=== PATIENT | male | born 1955 | race Caucasian/White ===

== ENCOUNTER 2016-05-22 15:29 | Emergency (ER) | payer MEDICARE, OTHER ==
[~2016-05-22] VITALS: Ht 182.9 cm; Wt 75.0 kg
[~2016-05-22 15:29] MED LIST: ASPI81TA82 PO; DOCU1CAP39 PO; LEVE500 PO; MIRTA15 PO; SERT100 PO; SERT50 PO
[2016-05-22 15:32] VITALS: BP 142/70; PULSE 86; RESP 16; TEMP 97.9
[2016-05-22] MEDS ORDERED: KEPP750T PO (15:37)
[2016-05-22] MEDS ORDERED: MIRTA15 PO (15:37)
[2016-05-22] MEDS ORDERED: ASPI81CH CHEW (15:37)
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
[2016-05-22] MEDS ORDERED: ACETAMINOPHEN/HYDROcodone 325 MG/5 MG TAB PO ONE (15:45)
[2016-05-22] MEDS ORDERED: CYCLOBENZAPRINE HCL 10 MG TAB PO ONE (15:45)
--- NOTE | 2016-05-22 16:29 | RADRPT ---
EXAM DATE/TIME: 05/22/2016 16:01 [facility] COMPARISON: No previous studies available for comparison. INDICATIONS : Pain after fall several days ago. RADIATION DOSE: 35.86 CTDIvol (mGy) MEDICAL HISTORY : Seizures. Deep venous thrombosis. SURGICAL HISTORY : None. ENCOUNTER: Initial ACUITY: 1 day PAIN SCALE: 7/10 LOCATION: lumbar. TECHNIQUE: Volumetric scanning of the lumbar spine was performed. Multiplanar reconstructions in the sagittal, coronal and oblique axial planes were performed. Using automated exposure control and adjustment of the mA and/or kV according to patient size, radiation dose was kept as low as reasonably achievable t o obtain optimal diagnostic quality images. FINDINGS: The soft tissues demonstrate a inferior vena cava filter in place. Bony structures are normally aligned without subluxation. As acute co mpression deformity superior vertebral endplate of L1 with impaction and increased density sub-cortic ally and discontinuity of the cortex particularly posterior laterally to the right with no evidence o f retropulsion of fragments or spinal stenosis. Additionally appreciated is an abnormal sacrum S1-2 w ith a lytic change and cortical erosion. CONCLUSION: Acute compression superior vertebral endplate of L1 without retropulsion of fragments and no evidence of spinal stenosis. Cystic abnormality lytic of the sacrum S1-2 with cortical erosions Jaspreet Fields MD on May 22, 2016 at 16:25 Board Certified Radiologist. This report was verified electronically.
[2016-05-22] MEDS ORDERED: NORC5TAB PO (17:03)
[2016-05-22 18:27] VITALS: BP 138/74; PULSE 88; RESP 20; O2SAT 97
== END 2016-05-22 18:57 | disposition home or self-care (01) ==
LOC: NEPE 15:29
DX: S32.018A Other fracture of first lumbar vertebra, initial encounter for closed fracture (principal); M53.3 Sacrococcygeal disorders, not elsewhere classified; Z86.718 Personal history of other venous thrombosis and embolism; Z86.69 Personal history of other diseases of the nervous system and sense organs; W10.9XXA Fall (on) (from) unspecified stairs and steps, initial encounter
CPT/HCPCS: 72131; 99284; L0484

== ENCOUNTER 2017-01-03 15:04 | Inpatient (IN) | payer MEDICARE, OTHER ==
[~2017-01-03] VITALS: Ht 182.9 cm; Wt 75.0 kg
[~2017-01-03 15:04] MED LIST changes: +ASPI81CH CHEW; -ASPI81TA82 PO; -DOCU1CAP39 PO; +KEPP750T PO; -LEVE500 PO; +NORC5TAB PO; -SERT100 PO; -SERT50 PO
[2017-01-03 15:58] VITALS: BP 149/77; PULSE 68; RESP 19; TEMP 97.7; O2SAT 99
[2017-01-03 16:06] VITALS: BP 149/77; PULSE 68; RESP 19; TEMP 97.7; O2SAT 98
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
[2017-01-03 17:03] LABS: AUTOMATED NEUTROPHIL # 3.4 TH/MM3 (1.8-7.7); BASOPHIL % 0.8 % (0.0-2.0); EOSINOPHIL # 0.3 TH/MM3 (0-0.4); EOSINOPHIL % 4.4 % (0.0-4.0); HEMATOCRIT 40.2 % (39.0-51.0); HEMO FLAGS DIFF FINAL; LYMPHOCYTE # 1.7 TH/MM3 (1.0-4.8); MEAN CELL VOLUME 95.7 FL (80.0-100.0); MEAN CORPUSCULAR HEMOGLOBIN 31.3 PG (27.0-34.0); MEAN CORPUSCULAR HGB CONC 32.7 % (32.0-36.0); MONO % 7.5 % (0.0-8.0); NEUT % 58.3 % (16.0-70.0); PLATELET COUNT 231 TH/MM3 (150-450); RED CELL DISTRIBUTION WIDTH 15.4 % (11.6-17.2); WHITE BLOOD COUNT 5.9 TH/MM3 (4.0-11.0)
[2017-01-03 17:08] LABS: APTT (PATIENT) 25.8 SEC (24.3-30.1); PROTHROMBIN TIME - PATIENT 10.5 SEC (9.8-11.6)
[2017-01-03 17:27] LABS: ANION GAP 8 MEQ/L (5-15); AST (GOT) 29 U/L (15-37); BICARBONATE 26.1 MEQ/L (21.0-32.0); BLOOD UREA NITROGEN 13 MG/DL (7-18); CHLORIDE 106 MEQ/L (98-107); GLOMERULAR FILTRATION RATE 97 ML/MIN (>89); POTASSIUM 3.9 MEQ/L (3.5-5.1); SODIUM (NA) 140 MEQ/L (136-145)
[2017-01-03 17:28] LABS: ALCOHOL LESS THAN 3 MG/DL (0-5)
[2017-01-03 17:30] LABS: ALKALINE PHOSPHATASE 125 U/L (45-117); ALT (GPT) 20 U/L (12-78); TOTAL BILIRUBIN ADULT 0.4 MG/DL (0.2-1.0)
[2017-01-03] MEDS ORDERED: FOSA70TA PO (20:37)
[2017-01-03] MEDS ORDERED: SERT-129 PO (20:37)
[2017-01-03] MEDS ORDERED: SIMV20TA PO (20:37)
[2017-01-03] MEDS ORDERED: LAMO25TA PO (20:37)
[2017-01-03] MEDS ORDERED: levETIRAcetam 250 MG TAB PO ONE (20:45)
[2017-01-04 02:12] VITALS: BP 106/61; PULSE 52; RESP 19; O2SAT 94
[2017-01-04 06:00] VITALS: RESP 18
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
[2017-01-04] MEDS ORDERED: ALUMINUM/MAGNESIUM/SIMETH 30 ML CUP PO PRN (13:45)
[2017-01-04] MEDS ORDERED: ACETAMINOPHEN 325 MG TAB PO PRN (13:45)
[2017-01-04] MEDS ORDERED: MAGNESIUM HYDROXIDE SUSP 30 ML CUP PO PRN (13:45)
[2017-01-04] MEDS ORDERED: ALENDRONATE SODIUM 70 MG TAB PO SCH (14:15)
[2017-01-04] MEDS: levETIRAcetam 250 MG TAB PO SCH (20:47)
[2017-01-05 08:28] LABS: ANION GAP 8 MEQ/L (5-15); BICARBONATE 25.9 MEQ/L (21.0-32.0); BLOOD UREA NITROGEN 10 MG/DL (7-18); CHLORIDE 108 MEQ/L (98-107); GLOMERULAR FILTRATION RATE 95 ML/MIN (>89); POTASSIUM 3.6 MEQ/L (3.5-5.1); SODIUM (NA) 142 MEQ/L (136-145)
[2017-01-05 08:30] LABS: HDL CHOLESTEROL 38.7 MG/DL (40.0-60.0); LDL CHOLESTEROL 68 MG/DL (0-99)
[2017-01-05] MEDS: levETIRAcetam 250 MG TAB PO SCH ×2 (09:00→21:39)
[2017-01-05] MEDS: PRAVASTATIN SOD 40 MG TAB PO SCH (09:00)
[2017-01-05] MEDS: ASPIRIN 81 MG CHEW TAB CHEW SCH (09:00)
[2017-01-05] MEDS: lamoTRIgine 25 MG TAB PO SCH (09:00)
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
[2017-01-05 10:45] LABS: HEMOGLOBIN A1a 0.8 %; HEMOGLOBIN A1b 0.8 %; HEMOGLOBIN Ao 87.5 %; HEMOGLOBIN F 0.8 %; HEMOGLOBIN LA1C 1.9 %; HEMOGLOBIN P3 3.2 %
[2017-01-05] MEDS ORDERED: HALOPERIDOL LACTATE 5 MG/ML AMP IM PRN (12:00)
[2017-01-05] MEDS ORDERED: HALOPERIDOL 2 MG TAB PO PRN (12:00)
[2017-01-05] MEDS ORDERED: diphenhydrAMINE HCL 50 MG CAP PO PRN (12:00)
[2017-01-05] MEDS ORDERED: BENZTROPINE MESYLATE 2 MG/2 ML VIAL IM PRN (12:00)
[2017-01-05] MEDS ORDERED: LORazepam 1 MG TAB PO PRN (12:00)
[2017-01-05] MEDS ORDERED: LORazepam 2 MG/ML VIAL IM PRN (12:00)
[2017-01-05] MEDS ORDERED: BENZTROPINE MESYLATE 1 MG TAB PO PRN (12:00)
--- NOTE | 2017-01-05 20:26 | MG ---
cc: DIEGO KLEIN MD Lab No: Date: 01/05/17 Age: 61 Sex: M Race: DATE OF 1955 MEDICAL HISTORY History of seizures, head trauma, confusion, numbness, mood disorder, depression, anxiety, violent behavior, caffeine, tobacco abuse, DVT, bipolar. MEDICATIONS Keppra. DESCRIPTION The background activity is 8-9 Hz alpha posteriorly located bilateral and symmetrical. During the recording there is excessive eye movement artifact possibly eye flutter. Hyperventilation did not make a change in the EEG. Photic stimulation did not elicit a driving response. There were no electrographic seizures or epileptiform discharges noted. INTERPRETATION This is a normal awake EEG. The EEG recording is contaminated by excess eye movement artifact. There is no ictal activity or abnormal epileptiform discharges. Clinical correlation is recommended. Diego Klein MD RGO/EO /4:09 PM /8:18 PM MTDIlda
[2017-01-05] MEDS ORDERED: SERTRALINE HCL 100 MG TAB PO SCH (21:00)
[2017-01-05] MEDS ORDERED: MIRTAZAPINE 15 MG TAB PO SCH (21:00)
[2017-01-05] MEDS ORDERED: QUEtiapine FUMARATE 25 MG TAB PO SCH (21:00)
[2017-01-06 05:43] VITALS: BP 147/67; PULSE 64; RESP 18; TEMP 98.2; O2SAT 99
--- NOTE | 2017-01-06 08:38 | EKG ---
Date Performed: 01/05/2017 Time Performed: 13:27:18 PTAGE: 61 years EKG: SINUS BRADYCARDIA BORDERLINE ECG PREVIOUS TRACING : 11/24/2012 20.24 No significant change from previous tracing noted. DOCTOR: Mohsen Pulido Interpretating Date/Time 01/06/2017 08:36:52
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
[2017-01-06] MEDS: lamoTRIgine 25 MG TAB PO SCH (09:00)
[2017-01-06] MEDS: PRAVASTATIN SOD 40 MG TAB PO SCH (09:00)
[2017-01-06] MEDS: ASPIRIN 81 MG CHEW TAB CHEW SCH (09:00)
[2017-01-06] MEDS: levETIRAcetam 250 MG TAB PO SCH ×2 (09:00→20:43)
--- NOTE | 2017-01-06 10:09 | HHI.PYPN ---
Subjective Remarks Patient seen and examined with counselor and nurse. Chart reviewed. Case discussed with nursing staff who reports that the patient is quite concrete and obstreperous. He is only agreeing to take 500mg of his Keppra at a time. He also refused Lamictal today. Psych meds are on hold for lack of consent. On my exam, patient is irascible and hostile. He tells me that I am "obliged to shut the fuck up." When I ask about HI, he says, "yeah, you [i.e. this scientific writer]. " He declines to speak about AVH. He concludes the interview by saying, "bye bye you fucking cornhole." No physical complaints. Review of Systems ROS Limitations: Psychotic, Poor Historian Except as stated in HPI: all other systems reviewed are Neg Objective Alert: Yes [place]: Person Mood: Angry, Oppositional Affect: Other (irritable) Memory Intact: Comment (Not formally assessed.) Hallucinations: Auditory (Appears internally stimulated.) Delusions: Yes Delusion Type: Paranoid Suicidal: Ideation (No SI) Homicidal: Ideation (See above) Insight/Judgment Poor Remarks No motor abnormalities noted. Thought process quite concrete. Grooming and hygiene fair. No visible rash. Labs Labs reviewed. EEG read as normal. Vitals/IOs Vital Signs Date Time Temp Pulse Resp B/P (MAP) Pulse Ox O2 Delivery O2 Flow Rate FiO2 01/06/17 05:43 98.2 64 18 147/67 (93) 99 01/04/17 02:12 Room Air Assessment & Plan Problem List: (1) Bipolar affective, mixed, sev w/ psych ICD Codes: F31.64 - Bipolar disorder, current episode mixed, severe, with psychotic features (2) History of traumatic brain injury ICD Codes: Z87.820 - Personal history of traumatic brain injury Assessment & Plan I have asked counselor to reach out to mother to see if she will be willing to serve as HCS. Patient remains quite irritable and would likely benefit from the Seroquel. We will start this as soon as consent is obtained from HCS. Lamictal may not be a great choice if compliance continues to be spotty given risk of SJS; will follow adherence going forward. Continue to monitor on the high acuity unit. Continue other medications and care as ordered. Justification for Cont. Inpt. Impairment in social functioning. High risk for decompensation in less restrictive environment. Discharge Planning Pending stabilization. Request HC Surrog/Guard Advoc?: Yes Karl Winston MD Jan 06, 2017 10:09
[2017-01-06] MEDS ORDERED: diphenhydrAMINE HCL 50 MG/ML VIAL IM STA (16:46)
[2017-01-06] MEDS ORDERED: HALOPERIDOL LACTATE 5 MG/ML AMP IM STA (16:46)
[2017-01-06] MEDS ORDERED: LORazepam 2 MG/ML VIAL IM STA (16:46)
[2017-01-07] MEDS: ALENDRONATE SODIUM 70 MG TAB PO SCH (06:00)
[2017-01-07] MEDS: levETIRAcetam 250 MG TAB PO SCH ×2 (09:40→20:24)
[2017-01-07] MEDS: ASPIRIN 81 MG CHEW TAB CHEW SCH (09:45)
[2017-01-07] MEDS: PRAVASTATIN SOD 40 MG TAB PO SCH (09:46)
[2017-01-07] MEDS: lamoTRIgine 25 MG TAB PO SCH (09:46)
--- NOTE | 2017-01-07 12:46 | HHI.PYPN ---
Subjective Remarks Patient seen and examined with nurse. Chart reviewed. Patient did grow agitated yesterday afternoon and required Haldol, Ativan and Benadryl ETO. Case discussed with nursing staff. Psych meds still on hold for lack of HCS for consent. He did take his full dose of Keppra today per RN. On my exam, patient remains challenging and overtly verbally hostile. He is not physically aggressive. When I try to engage him in interview he is dismissive. He says that I am "a mannikin. They used to call people dummies, but you're a mannikin. " No physical complaints. Review of Systems ROS Limitations: Uncooperative, Poor Historian Except as stated in HPI: all other systems reviewed are Neg Objective Alert: Yes [place]: Person Mood: Angry (remains hostile, angry), Oppositional Affect: Other (irritable) Memory Intact: Comment (Not formally assessed.) Hallucinations: Auditory (Remains int stim) Delusions: Yes Delusion Type: Paranoid Suicidal: Ideation (No SI) Homicidal: Ideation (No HI) Insight/Judgment Poor Remarks No motor abnormalities noted. Grooming and hygiene fair. Labs Labs reviewed. Vitals/IOs Vital Signs Date Time Temp Pulse Resp B/P (MAP) Pulse Ox O2 Delivery O2 Flow Rate FiO2 01/06/17 05:43 98.2 64 18 147/67 (93) 99 01/04/17 02:12 Room Air Assessment & Plan Problem List: (1) Bipolar affective, mixed, sev w/ psych ICD Codes: F31.64 - Bipolar disorder, current episode mixed, severe, with psychotic features (2) History of traumatic brain injury ICD Codes: Z87.820 - Personal history of traumatic brain injury Assessment & Plan Psych meds on hold for lack of consent. D/w counselor, and at present no one is available to act as HCS. Continue to monitor on high acuity unit. Continue other medications and care as ordered. Justification for Cont. Inpt. Impairment in social function. Impairment in reality construction. High risk for decompensation in less restrictive environment. Discharge Planning Pending stabilization. We may need to await appointment of a guardian advocate by [place] to allow us to medicate the patient for his symptoms. Request HC Surrog/Guard Advoc?: Yes Karl Winston MD Jan 07, 2017 12:46
[2017-01-07] MEDS ORDERED: diphenhydrAMINE HCL 50 MG/ML VIAL IM STA (17:14)
[2017-01-07] MEDS ORDERED: HALOPERIDOL LACTATE 5 MG/ML AMP IM STA (17:14)
[2017-01-07] MEDS ORDERED: LORazepam 2 MG/ML VIAL IM STA (17:14)
[2017-01-08] MEDS: ASPIRIN 81 MG CHEW TAB CHEW SCH ×2 (09:00→09:06)
[2017-01-08] MEDS: lamoTRIgine 25 MG TAB PO SCH ×2 (09:00→09:06)
[2017-01-08] MEDS: PRAVASTATIN SOD 40 MG TAB PO SCH ×2 (09:00→09:06)
[2017-01-08] MEDS: levETIRAcetam 250 MG TAB PO SCH ×2 (09:06→21:00)
--- NOTE | 2017-01-08 12:28 | HHI.PYPN ---
Subjective Remarks Pt seen and discussed with staff. He has been only selectively compliant with medications and refused most of them today.He has been agitated and making racial slurs and threats to "beat ass". He is disorganized and refuses interview because "I got things to do". Objective Alert: Yes [place]: Person Mood: Angry (hostile), Oppositional Affect: Other (irritable) Memory Intact: Comment (Not formally assessed.) Hallucinations: Auditory (Remains int stim) Delusions: Yes Delusion Type: Paranoid Suicidal: Ideation (No SI) Homicidal: Ideation (No HI) Insight/Judgment poor Remarks some disorganized behaviors Vitals/IOs Vital Signs Date Time Temp Pulse Resp B/P (MAP) Pulse Ox O2 Delivery O2 Flow Rate FiO2 01/06/17 05:43 98.2 64 18 147/67 (93) 99 Assessment & Plan Problem List: (1) Bipolar affective, mixed, sev w/ psych ICD Codes: F31.64 - Bipolar disorder, current episode mixed, severe, with psychotic features (2) History of traumatic brain injury ICD Codes: Z87.820 - Personal history of traumatic brain injury Assessment & Plan Continue current tx plan. Estimated LOS: days Justification for Cont. Inpt. impairments in safeyt Request HC Surrog/Guard Advoc?: Yes Mahnaz Tran MD Jan 08, 2017 12:28
[2017-01-09 06:05] VITALS: BP 90/56; PULSE 64; RESP 19; TEMP 97.1; O2SAT 100
[2017-01-09] MEDS: PRAVASTATIN SOD 40 MG TAB PO SCH (08:53)
[2017-01-09] MEDS: levETIRAcetam 250 MG TAB PO SCH ×2 (08:53→20:33)
[2017-01-09] MEDS: ASPIRIN 81 MG CHEW TAB CHEW SCH (08:53)
[2017-01-09] MEDS: lamoTRIgine 25 MG TAB PO SCH (08:55)
--- NOTE | 2017-01-09 12:14 | HHI.PYPN ---
Subjective Remarks Pt seen and discussed with staff. He remains psychotic and disorganized. He is disruptive on unit and easily agitated. Staff have not been able to obtain a HCS. Pt is unable to provide family information for contact and is very suspicious when MD asks is there is anyone he would like to contact or to have involved in care. "Its none of their business." Objective Alert: Yes [place]: Person Mood: Angry (hostile), Oppositional Affect: Other (irritable) Memory Intact: Comment (Not formally assessed.) Hallucinations: Auditory (Remains int stim) Delusions: Yes Delusion Type: Paranoid Suicidal: Ideation (No SI) Homicidal: Ideation (No HI) Insight/Judgment poor Vitals/IOs Vital Signs Date Time Temp Pulse Resp B/P (MAP) Pulse Ox O2 Delivery O2 Flow Rate FiO2 01/09/17 06:05 97.1 64 19 90/56 (67) 100 Assessment & Plan Problem List: (1) Bipolar affective, mixed, sev w/ psych ICD Codes: F31.64 - Bipolar disorder, current episode mixed, severe, with psychotic features (2) History of traumatic brain injury ICD Codes: Z87.820 - Personal history of traumatic brain injury Assessment & Plan Continue hospitalization for safety. Continue to try and find HCS. Will need [place] appointment [place]. Estimated LOS: days Justification for Cont. Inpt. impairments in safety and reality testing Request HC Surrog/Guard Advoc?: Yes Mahnaz Tran MD Jan 09, 2017 12:14
[2017-01-09] MEDS ORDERED: diphenhydrAMINE HCL 50 MG/ML VIAL ONE (15:04)
[2017-01-09] MEDS ORDERED: ZIPRASIDONE MESYLATE 20 MG VIAL IM ONE ×2 (15:04→15:45)
[2017-01-09 15:11] VITALS: BP 117/80; PULSE 17; PULSE 71; RESP 17
[2017-01-09] MEDS ORDERED: diphenhydrAMINE HCL 50 MG/ML VIAL IM ONE (15:45)
[2017-01-10 08:00] VITALS: BP 104/50; PULSE 60; RESP 16; TEMP 98; O2SAT 97
[2017-01-10] MEDS: ASPIRIN 81 MG CHEW TAB CHEW SCH (09:00)
--- NOTE | 2017-01-10 09:20 | HHI.PYPN ---
Subjective Remarks Patient seen and examined with nurse. Chart reviewed. Case discussed with nursing staff. Psych meds still on hold for lack of consent. Less frankly irritable and hostile today. Remains oppositional and questioning however. Denies SI/HI. Denies AVH. Smiles briefly. No physical complaints. Review of Systems ROS Limitations: Poor Historian Except as stated in HPI: all other systems reviewed are Neg Objective Alert: Yes [place]: Person Mood: Angry (less angry today), Oppositional Affect: Other (remains a little irritable) Memory Intact: Comment (not formally assessed today) Hallucinations: Other (denies AVH) Delusions: Yes Delusion Type: Paranoid Suicidal: Ideation (No SI) Homicidal: Ideation (No HI) Insight/Judgment Poor Remarks No motor abnormalities noted. Labs Labs reviewed. Vitals/IOs Vital Signs Date Time Temp Pulse Resp B/P (MAP) Pulse Ox O2 Delivery O2 Flow Rate FiO2 01/09/17 15:11 71 17 117/80 (92) 01/09/17 06:05 97.1 100 Assessment & Plan Problem List: (1) Bipolar affective, mixed, sev w/ psych ICD Codes: F31.64 - Bipolar disorder, current episode mixed, severe, with psychotic features (2) History of traumatic brain injury ICD Codes: Z87.820 - Personal history of traumatic brain injury Assessment & Plan Awaiting consent for meds. Continue to monitor on high acuity unit. Continue other medications and care as ordered. Justification for Cont. Inpt. Impairment in social function. High risk for decompensation in less restrictive environment. Discharge Planning Pending stabilization. Awaiting appointment of a guardian advocate. Case discussed with counselor. Request HC Surrog/Guard Advoc?: Yes Karl Winston MD Jan 10, 2017 09:20
[2017-01-10] MEDS: PRAVASTATIN SOD 40 MG TAB PO SCH (09:23)
[2017-01-10] MEDS: lamoTRIgine 25 MG TAB PO SCH (09:23)
[2017-01-10] MEDS: levETIRAcetam 250 MG TAB PO SCH ×2 (09:23→20:53)
[2017-01-11] MEDS: ASPIRIN 81 MG CHEW TAB CHEW SCH (09:00)
[2017-01-11] MEDS: PRAVASTATIN SOD 40 MG TAB PO SCH (09:00)
--- NOTE | 2017-01-11 09:42 | HHI.PYPN ---
Subjective Remarks Patient seen and examined with nurse. Chart reviewed. Case discussed in treatment team. Patient refuses interview in room. Remains questioning, oppositional but not verbally aggressive. Paranoia present. No SI or HI voiced. Complains of right leg pain and claudication, says this is of several week's duration, but he is a poor historian. He reports a history of VTE. No other physical complaints. Review of Systems ROS Limitations: Psychotic, Poor Historian Except as stated in HPI: all other systems reviewed are Neg Objective Alert: Yes [place]: Person Mood: Oppositional Affect: Other (irritable) Memory Intact: Comment (not formally assessed today) Hallucinations: Other (none reported but appears a little internally preoccupied) Delusions: Yes Delusion Type: Paranoid Suicidal: Ideation (No SI) Homicidal: Ideation (No HI) Insight/Judgment Poor Remarks No motor abnormalities noted. Grooming and hygiene fair. Speech terse. No tenderness to palpation along the right calf. No palpable cord. Labs Labs reviewed. Vitals/IOs Vital Signs Date Time Temp Pulse Resp B/P (MAP) Pulse Ox O2 Delivery O2 Flow Rate FiO2 01/10/17 08:00 98.0 60 16 104/50 (15) 97 Assessment & Plan Problem List: (1) Bipolar affective, mixed, sev w/ psych ICD Codes: F31.64 - Bipolar disorder, current episode mixed, severe, with psychotic features (2) History of traumatic brain injury ICD Codes: Z87.820 - Personal history of traumatic brain injury Assessment & Plan Awaiting consent for psychotropic medications. Check RLE doppler. [Update: non -occlusive thrombus in femoral vein, hospitalist has started patient on Xarelto. ] Consult to hospitalist for c/o leg pain. Continue to monitor on high acuity unit. Continue other medications and care as ordered. Justification for Cont. Inpt. Complicating condition. Impairment in reality construction. High risk for decompensation in less restrictive environment. Discharge Planning Pending outcome of [place]. Request HC Surrog/Guard Advoc?: Yes Karl Winston MD Jan 11, 2017 09:42
[2017-01-11] MEDS: levETIRAcetam 250 MG TAB PO SCH ×2 (09:53→20:45)
[2017-01-11] MEDS: lamoTRIgine 25 MG TAB PO SCH (09:53)
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
[2017-01-11] MEDS: RIVAROXABAN 15 MG TAB PO SCH ×2 (13:45→20:46)
[2017-01-11 18:08] VITALS: BP 95/54; PULSE 59; RESP 18; TEMP 96.3; O2SAT 92
[2017-01-12 06:23] VITALS: BP 103/68; PULSE 56; RESP 18; TEMP 97.4; O2SAT 99
[2017-01-12] MEDS: RIVAROXABAN 15 MG TAB PO SCH ×2 (08:21→21:00)
[2017-01-12] MEDS: lamoTRIgine 25 MG TAB PO SCH (08:22)
[2017-01-12] MEDS: levETIRAcetam 250 MG TAB PO SCH ×2 (08:22→21:03)
[2017-01-12] MEDS: PRAVASTATIN SOD 40 MG TAB PO SCH ×2 (08:22→09:00)
[2017-01-12] MEDS: ASPIRIN 81 MG CHEW TAB CHEW SCH (08:25)
--- NOTE | 2017-01-12 10:57 | HHI.PYPN ---
Subjective Remarks Patient seen and examined with counselor and nurse. Chart reviewed. Case discussed with nursing staff who reports that the patient continues to refuse some medications such as aspirin and Pravachol but is generally more polite and cooperative. On my examination today, I find the patient somewhat calmer. He does tend to deflect and minimize his behavior outbursts, more common in the afternoon, that have required ETO's earlier this week. Does begin to escalate a bit towards the end of our conversation and grow more oppositional, but overall seems less quarrelsome than in previous days. No physical complaints. Review of Systems ROS Limitations: Poor Historian Except as stated in HPI: all other systems reviewed are Neg Objective Alert: Yes [place]: Person Mood: Oppositional (perhaps reduced somewhat) Affect: Other (irritable, perhaps a little less so today) Memory Intact: Comment (not formally assessed) Hallucinations: Other (no AVH) Delusions: Yes Delusion Type: Paranoid (less prominent) Suicidal: Ideation (No SI) Homicidal: Ideation (No HI) Insight/Judgment Poor Remarks No motor abnormalities noted. Labs Labs reviewed. Vitals/IOs Vital Signs Date Time Temp Pulse Resp B/P (MAP) Pulse Ox O2 Delivery O2 Flow Rate FiO2 01/12/17 06:23 97.4 56 18 103/68 (80) 99 Assessment & Plan Problem List: (1) Bipolar affective, mixed, sev w/ psych ICD Codes: F31.64 - Bipolar disorder, current episode mixed, severe, with psychotic features (2) History of traumatic brain injury ICD Codes: Z87.820 - Personal history of traumatic brain injury Assessment & Plan Awaiting consents for psychotropics. Hospitalist input appreciated regarding patient's DVT, and the patient continues on Xarelto. Continue to monitor on the inpatient unit. Continue other medications and care as ordered. Justification for Cont. Inpt. High risk for decompensation in less restrictive environment. Discharge Planning Pending outcome of [place] Request HC Surrog/Guard Advoc?: Yes Karl Winston MD Jan 12, 2017 10:57
[2017-01-13] MEDS: levETIRAcetam 250 MG TAB PO SCH ×2 (08:09→20:41)
[2017-01-13] MEDS: RIVAROXABAN 15 MG TAB PO SCH ×2 (08:09→20:41)
[2017-01-13] MEDS: PRAVASTATIN SOD 40 MG TAB PO SCH (08:09)
[2017-01-13] MEDS: lamoTRIgine 25 MG TAB PO SCH (08:09)
[2017-01-13] MEDS: ASPIRIN 81 MG CHEW TAB CHEW SCH ×2 (08:09→08:12)
--- NOTE | 2017-01-13 10:51 | HHI.PYPN ---
Subjective Remarks Patient seen and case discussed with nursing staff. Chart reviewed. Per nursing staff, patient remains somewhat irritable. For me today, patient is once again calmer and less oppositional. He remains somewhat questioning and affect is generally dysphoric. When his case was presented to the [email or web address], he was noted to be somewhat dismissive of the coin machine service repairer and told the staff to "keep your hands off me" in an angry fashion. No physical complaints. Review of Systems ROS Limitations: Poor Historian Except as stated in HPI: all other systems reviewed are Neg Objective Alert: Yes [place]: Person Mood: Other (Dysphoric) Affect: Restricted Memory Intact: Comment (not formally assessed) Hallucinations: Other (no AVH) Delusions: Yes Delusion Type: Paranoid Suicidal: Ideation (No SI) Homicidal: Ideation (No HI) Insight/Judgment Poor Remarks No motoric abnormalities noted. Labs Labs reviewed. Vitals/IOs Vital Signs Date Time Temp Pulse Resp B/P (MAP) Pulse Ox O2 Delivery O2 Flow Rate FiO2 01/12/17 06:23 97.4 56 18 103/68 (80) 99 Assessment & Plan Problem List: (1) Bipolar affective, mixed, sev w/ psych ICD Codes: F31.64 - Bipolar disorder, current episode mixed, severe, with psychotic features (2) History of traumatic brain injury ICD Codes: Z87.820 - Personal history of traumatic brain injury Assessment & Plan Patient was retained on the unit by the [email or web address] [facility] and given a [place] guardian. D/c Seroquel which has not been given due to lack of consent and replace with Zyprexa Zydis 5mg PO qHS with IM backup. Continue other medications and care as ordered. Continue to monitor on the inpatient unit. Justification for Cont. Inpt. Medication change. High risk for decompensation in less restrictive environment. Discharge Planning Pending stabilization Request HC Surrog/Guard Advoc?: Yes Karl Winston MD Jan 13, 2017 10:51
[2017-01-13] MEDS ORDERED: OLANZapine IM 10 MG VIAL IM PRN (15:15)
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
[2017-01-13] MEDS ORDERED: OLANZapine ODT 5 MG TAB PO SCH (21:00)
[2017-01-14] MEDS: lamoTRIgine 25 MG TAB PO SCH (07:55)
[2017-01-14] MEDS: levETIRAcetam 250 MG TAB PO SCH ×2 (07:55→21:00)
[2017-01-14] MEDS: PRAVASTATIN SOD 40 MG TAB PO SCH (07:55)
[2017-01-14] MEDS: ALENDRONATE SODIUM 70 MG TAB PO SCH (07:55)
[2017-01-14] MEDS: RIVAROXABAN 15 MG TAB PO SCH ×2 (09:00→21:00)
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
[2017-01-14] MEDS ORDERED: OLANZapine IM 10 MG VIAL IM PRN (12:00)
[2017-01-14 15:39] VITALS: BP 110/59; PULSE 61; RESP 19; O2SAT 98
[2017-01-14] MEDS: OLANZapine ODT 5 MG TAB PO SCH (21:00)
[2017-01-15] MEDS: lamoTRIgine 25 MG TAB PO SCH (08:16)
[2017-01-15] MEDS: PRAVASTATIN SOD 40 MG TAB PO SCH (08:16)
[2017-01-15] MEDS: OLANZapine ODT 5 MG TAB PO SCH ×2 (08:16→20:29)
[2017-01-15] MEDS: levETIRAcetam 250 MG TAB PO SCH ×2 (08:16→20:28)
[2017-01-15] MEDS: RIVAROXABAN 15 MG TAB PO SCH ×2 (08:16→20:29)
--- NOTE | 2017-01-15 18:20 | HHI.PYPN ---
Subjective Remarks Patient was seen and case discussed with nursing. Patient interviewed in bed. Patient refused to sit up or make eye contact. Patient is rude irritable and insulting. Refusing to participate with interview. Per nursing this is been his behavior throughout the day. Per nursing, compliant with medications Objective Alert: Yes [place]: Person Mood: Angry Affect: Labile Memory Intact: Comment (not formally assessed) Hallucinations: Other (would not answer) Delusions: Yes Delusion Type: Paranoid (internally stimulated) Suicidal: Ideation (No SI) Homicidal: Ideation (threats as above) Insight/Judgment Poor Vitals/IOs Vital Signs Date Time Temp Pulse Resp B/P (MAP) Pulse Ox O2 Delivery O2 Flow Rate FiO2 01/14/17 15:39 61 19 110/59 (76) 98 01/12/17 06:23 97.4 Assessment & Plan Problem List: (1) Bipolar affective, mixed, sev w/ psych ICD Codes: F31.64 - Bipolar disorder, current episode mixed, severe, with psychotic features (2) History of traumatic brain injury ICD Codes: Z87.820 - Personal history of traumatic brain injury Assessment & Plan Continue current treatment plan Justification for Cont. Inpt. Patient would decompensate in a less restrictive setting Request HC Surrog/Guard Advoc?: Yes Glenn Caballero DO Jan 15, 2017 18:20
[2017-01-16] MEDS: levETIRAcetam 250 MG TAB PO SCH ×2 (08:39→20:18)
[2017-01-16] MEDS: OLANZapine ODT 5 MG TAB PO SCH ×2 (08:39→20:18)
[2017-01-16] MEDS: lamoTRIgine 25 MG TAB PO SCH (08:39)
[2017-01-16] MEDS: PRAVASTATIN SOD 40 MG TAB PO SCH (08:39)
[2017-01-16] MEDS: RIVAROXABAN 15 MG TAB PO SCH ×2 (08:39→20:18)
--- NOTE | 2017-01-16 15:42 | HHI.PYPN ---
Subjective Remarks Patient was seen and case discussed with nursing. Patient remains disheveled , rude, very irritable. During the interview he mirrors the questions being asked. Would not participate with the rest of the interview. Patient behaved this way with myself and later when asked the nurse to speak with him Objective Alert: Yes [place]: Person Mood: Agitated, Angry Affect: Other (angry) Memory Intact: Comment (not formally assessed) Hallucinations: Other (would not answer) Delusions: Yes Delusion Type: Paranoid (internally stimulated) Suicidal: Ideation (No SI) Homicidal: Ideation (threats as above) Insight/Judgment Poor Vitals/IOs Vital Signs Date Time Temp Pulse Resp B/P (MAP) Pulse Ox O2 Delivery O2 Flow Rate FiO2 01/14/17 15:39 61 19 110/59 (76) 98 Assessment & Plan Problem List: (1) Bipolar affective, mixed, sev w/ psych ICD Codes: F31.64 - Bipolar disorder, current episode mixed, severe, with psychotic features (2) History of traumatic brain injury ICD Codes: Z87.820 - Personal history of traumatic brain injury Assessment & Plan Continue current treatment plan Justification for Cont. Inpt. Patient would decompensate in a less restrictive setting Request HC Surrog/Guard Advoc?: Yes Glenn Caballero DO Jan 16, 2017 15:42
[2017-01-16 18:00] VITALS: BP 112/65; PULSE 61; RESP 17; O2SAT 99
[2017-01-17] MEDS: lamoTRIgine 25 MG TAB PO SCH (08:53)
[2017-01-17] MEDS: PRAVASTATIN SOD 40 MG TAB PO SCH (08:53)
[2017-01-17] MEDS: levETIRAcetam 250 MG TAB PO SCH ×2 (08:53→21:45)
[2017-01-17] MEDS: RIVAROXABAN 15 MG TAB PO SCH ×2 (08:53→21:46)
[2017-01-17] MEDS: OLANZapine ODT 5 MG TAB PO SCH (08:53)
--- NOTE | 2017-01-17 11:19 | HHI.PYPN ---
Subjective Remarks Patient seen and examined with counselor nurse. Chart reviewed. Case discussed with counselor and nurse. Patient was apparently fairly rude and belligerent over the weekend. However on my examination today, the patient is calm and actually quite sedate. None of the questioning/hostile behavior noted before the weekend. He says that he is doing "all right." Denies side effects from medications. No physical complaints. Review of Systems ROS Limitations: Poor Historian Except as stated in HPI: all other systems reviewed are Neg Objective Alert: Yes [place]: Person Mood: Calm Affect: Blunted Memory Intact: Comment (not formally assessed) Hallucinations: Other (no AVH) Delusions: Yes Delusion Type: Paranoid (possibly some residual paranoia) Suicidal: Ideation (no SI) Homicidal: Ideation (no HI) Insight/Judgment Poor Remarks No motoric abnormalities noted. No visible rash. Labs Labs reviewed. Vitals/IOs Vital Signs Date Time Temp Pulse Resp B/P (MAP) Pulse Ox O2 Delivery O2 Flow Rate FiO2 01/16/17 18:00 61 17 112/65 (81) 99 Assessment & Plan Problem List: (1) Bipolar affective, mixed, sev w/ psych ICD Codes: F31.64 - Bipolar disorder, current episode mixed, severe, with psychotic features (2) History of traumatic brain injury ICD Codes: Z87.820 - Personal history of traumatic brain injury Assessment & Plan Continue Zyprexa as ordered. It appears that the patient is accepting medical meds. Continue to monitor on the high acuity unit. Continue other medications and care as ordered. Justification for Cont. Inpt. Risk for decompensation Discharge Planning Possible transition back to facility later this week. Request HC Surrog/Guard Advoc?: Yes Karl Winston MD Jan 17, 2017 11:19
[2017-01-17] MEDS: OLANZapine ODT 10 MG TAB PO SCH (21:45)
--- NOTE | 2017-01-18 08:13 | HHI.PYPN ---
Subjective Remarks Patient seen and examined. Chart reviewed. Case discussed in treatment team. On my examination today, patient calm and easy-going. He offers no particular psychiatric complaints. He would like to get back to his facility "whenever. No flynn." Denies side effects from meds. No physical complaints. Review of Systems ROS Limitations: Poor Historian Except as stated in HPI: all other systems reviewed are Neg Objective Alert: Yes [place]: Person Mood: Calm Affect: Blunted (remains a little blunted) Memory Intact: Comment (not formally assessed) Hallucinations: Other (None) Delusions: No Delusion Type: Other (No delusions) Suicidal: Ideation (No SI) Homicidal: Ideation (No HI) Insight/Judgment Poor Remarks No motor abnormalities noted. Labs Labs reviewed. Vitals/IOs Vital Signs Date Time Temp Pulse Resp B/P (MAP) Pulse Ox O2 Delivery O2 Flow Rate FiO2 01/16/17 18:00 61 17 112/65 (81) 99 Assessment & Plan Problem List: (1) Bipolar affective, mixed, sev w/ psych ICD Codes: F31.64 - Bipolar disorder, current episode mixed, severe, with psychotic features (2) History of traumatic brain injury ICD Codes: Z87.820 - Personal history of traumatic brain injury Assessment & Plan Continue Zyprexa as ordered. Continue to monitor on the inpatient unit. Continue other medications and care as ordered. Justification for Cont. Inpt. Risk for decompensation. Discharge Planning Counselor to reach out facility regarding possible return there by the end of the week. Request HC Surrog/Guard Advoc?: Yes Karl Winston MD Jan 18, 2017 08:13
[2017-01-18] MEDS: lamoTRIgine 25 MG TAB PO SCH (08:31)
[2017-01-18] MEDS: RIVAROXABAN 15 MG TAB PO SCH ×2 (08:31→21:07)
[2017-01-18] MEDS: levETIRAcetam 250 MG TAB PO SCH ×2 (08:31→21:07)
[2017-01-18] MEDS: PRAVASTATIN SOD 40 MG TAB PO SCH (08:31)
[2017-01-18] MEDS: OLANZapine ODT 5 MG TAB PO SCH (08:31)
--- NOTE | 2017-01-18 11:33 | PD.TTN ---
Patient Problems 1. Discharge planning 2. Medication compliance 3. Knowledge deficit 4. Lack of coping skills Progress Toward Goals Provider Present: Dr. Lucy Winston Provider Input: Dr. Winston treatment team met to discuss patient's treatment plan, discharge and medication. Patient is medication complaint. Patient presents at his baseline. Patient can be discharged tomorrow if he remains stablized. Nurse(s) Input: Patient's nurse Jagdish Jeffries RN reports patient is medication compliant, poorly motivated. Goals for patient is to continue to medication compliant, not violent, not to have auditory and visual hallucinations. Psychiatric Counselors Present: POLLY LombardiSrinivasa Psych Therapist Input: Patient continues to be seen in dayroom. Patient is withdrawn, easily agitated, anxious, affect blunted. Patient is medication complaint. Patient is very unpredictable, intrusive, and restless on unit. Patient has been eating and sleeping ok. Patient continues to present paranoid. Patient is alert to person, place, and time but has poor insight into his situation. Group Spec/RT/OT/MENDOZA Present: KELLY Flores Group Spec/RT/OT/MENDOZA Input: Patient isoloates to self. Discharged focused. Teodora LopezSrinivasa Jan 18, 2017 11:33
[2017-01-18] MEDS ORDERED: LORazepam 2 MG/ML VIAL IM STA (14:15)
[2017-01-18] MEDS ORDERED: diphenhydrAMINE HCL 50 MG/ML VIAL IM STA (14:15)
[2017-01-18] MEDS ORDERED: HALOPERIDOL LACTATE 5 MG/ML AMP IM STA (14:15)
[2017-01-18] MEDS ORDERED: diphenhydrAMINE HCL 50 MG/ML VIAL ONE (14:17)
[2017-01-18] MEDS: OLANZapine ODT 10 MG TAB PO SCH (21:07)
[2017-01-19] MEDS: RIVAROXABAN 15 MG TAB PO SCH ×2 (09:04→21:15)
[2017-01-19] MEDS: lamoTRIgine 25 MG TAB PO SCH (09:04)
[2017-01-19] MEDS: OLANZapine ODT 5 MG TAB PO SCH ×2 (09:04→12:00)
[2017-01-19] MEDS: PRAVASTATIN SOD 40 MG TAB PO SCH (09:04)
[2017-01-19] MEDS: levETIRAcetam 250 MG TAB PO SCH ×2 (09:04→21:14)
--- NOTE | 2017-01-19 09:51 | HHI.PYPN ---
Subjective Remarks Patient seen and examined with counselor and a nurse. Chart reviewed. Case discussed with nursing staff who reports that after his outburst yesterday, the patient calmed but remained rude and belligerent. On my examination today, the patient minimizes his behavioral outburst yesterday. He continues to castigate that appear who accidentally stubbed his toe on the patient's chair saying "can' t he see what's in front of him?" Says that the patients and staff on the unit are "turds." Denies AVH. Reports HI against "anyone who gives me any shit." Remains irritable. No side effects from medications. No physical complaints. Review of Systems ROS Limitations: Poor Historian Except as stated in HPI: all other systems reviewed are Neg Objective Alert: Yes [employer]: Person Mood: Other (irritable, dysphoric) Affect: Restricted Memory Intact: Comment (not formally assessed) Hallucinations: Other (No AVH) Delusions: No Delusion Type: Other (No delusions) Suicidal: Ideation (No SI) Homicidal: Ideation (as above) Insight/Judgment Poor Remarks No motoric abnormalities noted. Grooming and hygiene fair. Thought process a little concrete. Labs Labs reviewed. Vitals/IOs Vital Signs Date Time Temp Pulse Resp B/P (MAP) Pulse Ox O2 Delivery O2 Flow Rate FiO2 01/16/17 18:00 61 17 112/65 (81) 99 Assessment & Plan Problem List: (1) Bipolar affective, mixed, sev w/ psych ICD Codes: F31.64 - Bipolar disorder, current episode mixed, severe, with psychotic features (2) History of traumatic brain injury ICD Codes: Z87.820 - Personal history of traumatic brain injury Assessment & Plan Patient to receive first midday dose of Zyprexa today. To consider further titration of this agent. I am concerned that Keppra is contributing to patient' s irritability and dysphoria, and I will consult the neurologist to explore the feasibility of switching to a different AED with mood stabilizing properties like VPA or CBZ. Check an updated set of basic labs in anticipation of selecting a new AED. Continue to monitor on the high acuity unit. Continue other medications and care as ordered. Justification for Cont. Inpt. Impairment in safety. Impairment in social function. High risk for decompensation in less restrictive environment. Discharge Planning Return to facility once psychiatrically stabilized. Request HC Surrog/Guard Advoc?: Yes Karl Winston MD Jan 19, 2017 09:51
[2017-01-19 18:11] VITALS: BP 110/63; PULSE 60; RESP 18; O2SAT 100
[2017-01-19] MEDS: OLANZapine ODT 10 MG TAB PO SCH (21:14)
[2017-01-20] MEDS: OLANZapine ODT 5 MG TAB PO SCH ×2 (09:22→11:43)
[2017-01-20] MEDS: PRAVASTATIN SOD 40 MG TAB PO SCH (09:22)
[2017-01-20] MEDS: levETIRAcetam 250 MG TAB PO SCH ×2 (09:22→20:49)
[2017-01-20] MEDS: RIVAROXABAN 15 MG TAB PO SCH ×2 (09:23→20:49)
[2017-01-20] MEDS: lamoTRIgine 25 MG TAB PO SCH (09:23)
--- NOTE | 2017-01-20 11:30 | HHI.PYPN ---
Subjective Remarks Patient seen and examined with counselor. Chart reviewed. Case discussed with nursing staff. Patient refused Zyprexa midday yesterday; I have added IM backup for this dose as well. On my exam, patient is initially calm but bristles when attempts are made to interview him. He is argumentative and hostile. Issues off-handed threats to hit me with "a fist to the head." He declines extended interview telling me to "make like a tree and leave." No evident side effects from medications, and when I ask patient about this, he goes on a sarcastic rant that "drugs are no good! Waldemar beers" instead. No physical complaints. Review of Systems ROS Limitations: Uncooperative, Psychotic, Poor Historian Except as stated in HPI: all other systems reviewed are Neg Objective Alert: Yes [place]: Person Mood: Other (remains irritable, dysphoric) Affect: Restricted Memory Intact: Comment (not formally assessed) Hallucinations: Other (None) Delusions: Yes Delusion Type: Paranoid Suicidal: Ideation (No SI) Homicidal: Ideation (Threats as above) Insight/Judgment Poor Remarks No motoric abnormalities noted. Speech angry, clipped. Grooming and hygiene fair. Labs Labs reviewed. Vitals/IOs Vital Signs Date Time Temp Pulse Resp B/P (MAP) Pulse Ox O2 Delivery O2 Flow Rate FiO2 01/19/17 18:11 60 18 110/63 (79) 100 Assessment & Plan Problem List: (1) Bipolar affective, mixed, sev w/ psych ICD Codes: F31.64 - Bipolar disorder, current episode mixed, severe, with psychotic features (2) History of traumatic brain injury ICD Codes: Z87.820 - Personal history of traumatic brain injury Assessment & Plan Add IM backup for midday dose of Zyprexa. Also titrate HS dose of Zyprexa to 15mg to bring total daily dose to 25mg/day. Awaiting neuro input re: switching away from Keppra. Continue to monitor on high acuity unit. Continue other medications and care as ordered. Justification for Cont. Inpt. Impairment in safety. Impairment in social function. Med changes in process. High risk for decompensation in less restrictive environment. Discharge Planning Hopeful to be able to stabilize the patient and return him to his facility. However, given the tenacity of his irritability and other symptoms, I will go ahead and initiate a [facility] referral at this time as a backup plan. Request HC Surrog/Guard Advoc?: Yes Karl Winston MD Jan 20, 2017 11:30
[2017-01-20] MEDS: OLANZapine IM 10 MG VIAL IM PRN (14:08)
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
[2017-01-20 17:48] VITALS: BP 109/66; PULSE 70; RESP 18; O2SAT 97
[2017-01-20] MEDS: OXcarbazepine 300 MG TAB PO SCH (20:49)
[2017-01-20] MEDS ORDERED: OLANZapine ODT 15 MG TAB PO SCH (21:00)
[2017-01-21] MEDS: OLANZapine ODT 5 MG TAB PO SCH ×2 (08:58→11:19)
[2017-01-21] MEDS: OXcarbazepine 300 MG TAB PO SCH ×2 (08:58→21:42)
[2017-01-21] MEDS: PRAVASTATIN SOD 40 MG TAB PO SCH (08:58)
[2017-01-21] MEDS: RIVAROXABAN 15 MG TAB PO SCH ×2 (08:59→21:00)
[2017-01-21] MEDS: levETIRAcetam 250 MG TAB PO SCH ×2 (08:59→21:42)
[2017-01-21] MEDS: ALENDRONATE SODIUM 70 MG TAB PO SCH (08:59)
[2017-01-21] MEDS: lamoTRIgine 25 MG TAB PO SCH (09:00)
--- NOTE | 2017-01-21 10:29 | HHI.PYPN ---
Subjective Remarks Patient seen and examined. Chart reviewed. No outbursts requiring ETO since 01/18. Case discussed with nursing staff. On my examination today, patient remains oppositional, rude and irritable. He comments sarcastically about the number of medications he is being given when we discuss the addition of Trileptal by neurology. He denies AVH. No SI. Says that he is having violent thoughts "towards everybody" although he has not acted out in several days as I said. No side effects from medications. No physical complaints. Review of Systems ROS Limitations: Psychotic, Poor Historian Except as stated in HPI: all other systems reviewed are Neg Objective Alert: Yes [place]: Person Mood: Angry, Oppositional Affect: Restricted Memory Intact: Comment (not formally assessed) Hallucinations: Other (no AVH) Delusions: Yes Delusion Type: Paranoid Suicidal: Ideation (No SI) Homicidal: Ideation (see above) Insight/Judgment Poor Remarks No abnormal motor movements noted. Grooming and hygiene fair. Speech terse, sarcastic. No rash. Labs Labs reviewed. Vitals/IOs Vital Signs Date Time Temp Pulse Resp B/P (MAP) Pulse Ox O2 Delivery O2 Flow Rate FiO2 01/20/17 17:48 70 18 109/66 (80) 97 Assessment & Plan Problem List: (1) Bipolar affective, mixed, sev w/ psych ICD Codes: F31.64 - Bipolar disorder, current episode mixed, severe, with psychotic features (2) History of traumatic brain injury ICD Codes: Z87.820 - Personal history of traumatic brain injury Assessment & Plan Titrate Zyprexa to 10mg TID PO/IM to target irritability, paranoia. Patient already received midday 5mg dose, and so I will order another 5mg Zyprexa now. Neurology input noted and appreciated. I will adjust Trileptal as recommended with plans to phase out Keppra thereafter. Continue to monitor on the high acuity unit. Continue other medications and care as ordered. Justification for Cont. Inpt. Impairment in safety. Impairment in social functioning. Impairment in reality construction. Med changes. High risk for decompensation in less restrictive environment. Discharge Planning Return to facility versus state psychiatric hospital referral. Request HC Surrog/Guard Advoc?: Yes Karl Winston MD Jan 21, 2017 10:29
[2017-01-21] MEDS: OLANZapine IM 10 MG VIAL IM PRN (11:24)
[2017-01-21] MEDS: OLANZapine ODT 5 MG TAB PO ONE (12:45)
[2017-01-21] MEDS ORDERED: OLANZapine IM 10 MG VIAL IM PRN (20:59)
[2017-01-21] MEDS: OLANZapine ODT 10 MG TAB PO SCH (21:43)
[2017-01-22] MEDS: levETIRAcetam 250 MG TAB PO SCH ×2 (09:00→20:53)
[2017-01-22] MEDS: PRAVASTATIN SOD 40 MG TAB PO SCH (09:00)
[2017-01-22] MEDS: OXcarbazepine 300 MG TAB PO SCH ×2 (09:00→20:53)
[2017-01-22] MEDS: lamoTRIgine 25 MG TAB PO SCH (09:00)
[2017-01-22] MEDS: OLANZapine ODT 10 MG TAB PO SCH ×3 (09:00→20:54)
[2017-01-22] MEDS: RIVAROXABAN 15 MG TAB PO SCH ×2 (09:00→20:56)
--- NOTE | 2017-01-22 13:08 | HHI.PYPN ---
Subjective Remarks Patient seen and case discussed with nurse. Labs reviewed. Remains delusional , feeling as if he can empower the future. Often irritable and oppositional. Review of Systems Except as stated in HPI: all other systems reviewed are Neg Objective Alert: Yes [place]: Person Mood: Angry, Oppositional Affect: Restricted Memory Intact: Comment (not formally assessed) Hallucinations: Other (no AVH) Delusions: Yes Delusion Type: Paranoid Suicidal: Ideation (No SI) Homicidal: Ideation (see above) Insight/Judgment Impaired Vitals/IOs Vital Signs Date Time Temp Pulse Resp B/P (MAP) Pulse Ox O2 Delivery O2 Flow Rate FiO2 01/20/17 17:48 70 18 109/66 (80) 97 Assessment & Plan Problem List: (1) Bipolar affective, mixed, sev w/ psych ICD Codes: F31.64 - Bipolar disorder, current episode mixed, severe, with psychotic features (2) History of traumatic brain injury ICD Codes: Z87.820 - Personal history of traumatic brain injury Assessment & Plan Estimated LOS: days continue to evaluate efficacy of medication management versus tolerability. Justification for Cont. Inpt. Unable to care for himself. Request HC Surrog/Guard Advoc?: Yes Alfredo Diaz MD Jan 22, 2017 13:08
[2017-01-23] MEDS: lamoTRIgine 25 MG TAB PO SCH (08:30)
[2017-01-23] MEDS: levETIRAcetam 250 MG TAB PO SCH ×2 (08:30→21:12)
[2017-01-23] MEDS: RIVAROXABAN 15 MG TAB PO SCH ×2 (08:31→21:14)
[2017-01-23] MEDS: PRAVASTATIN SOD 40 MG TAB PO SCH (08:31)
[2017-01-23] MEDS: OXcarbazepine 300 MG TAB PO SCH ×2 (08:31→21:11)
[2017-01-23] MEDS: OLANZapine ODT 10 MG TAB PO SCH ×3 (08:32→21:11)
--- NOTE | 2017-01-23 13:02 | HHI.PYPN ---
Subjective Remarks Patient seen and examined with nurse. Chart reviewed. Case discussed with nursing staff. Patient reportedly remains rude and hostile. On my examination today, patient presently calm. Remains a little sarcastic but less oppositional than in previous contacts. Denies SI or HI. Denies AVH but does say that sometimes he "think[s] of things and they happen or don't happen." He denies side effects from medications. No physical complaints. Review of Systems ROS Limitations: Poor Historian Except as stated in HPI: all other systems reviewed are Neg Objective Alert: Yes [place]: Person Mood: Oppositional (lessening) Affect: Restricted (somewhat dysphoric) Memory Intact: Comment (not formally assessed) Hallucinations: Other (no hallucinations) Delusions: Yes Delusion Type: Paranoid Suicidal: Ideation (denies SI) Homicidal: Ideation (denies HI) Insight/Judgment Poor Remarks No motor abnormalities appreciated. Grooming and hygiene fair. Labs Labs reviewed. Vitals/IOs Vital Signs Date Time Temp Pulse Resp B/P (MAP) Pulse Ox O2 Delivery O2 Flow Rate FiO2 01/20/17 17:48 70 18 109/66 (80) 97 Assessment & Plan Problem List: (1) Bipolar affective, mixed, sev w/ psych ICD Codes: F31.64 - Bipolar disorder, current episode mixed, severe, with psychotic features (2) History of traumatic brain injury ICD Codes: Z87.820 - Personal history of traumatic brain injury Assessment & Plan Continue current psychotropics as ordered. Plan to titrate Trileptal after the weekend as recommended by neurology. Subsequently plan to taper Keppra. Check an updated set of basic laboratories in the morning. Continue to monitor on the high acuity unit. Continue other medications and care as ordered. Justification for Cont. Inpt. Impairment in social function. High risk for decompensation and less restrictive environment. Discharge Planning Pending psychiatric stabilization. Possible return to referring facility versus state psychiatric hospital referral. Request HC Surrog/Guard Advoc?: Yes Karl Winston MD Jan 23, 2017 13:02
[2017-01-24] MEDS: OLANZapine ODT 10 MG TAB PO SCH ×3 (09:00→21:22)
[2017-01-24] MEDS: RIVAROXABAN 15 MG TAB PO SCH ×2 (09:00→21:20)
[2017-01-24] MEDS: lamoTRIgine 25 MG TAB PO SCH (09:00)
[2017-01-24] MEDS: OXcarbazepine 300 MG TAB PO SCH ×2 (09:00→21:20)
[2017-01-24] MEDS: PRAVASTATIN SOD 40 MG TAB PO SCH (09:00)
--- NOTE | 2017-01-24 15:30 | HHI.PYPN ---
Subjective Remarks Patient seen today for psychiatric evaluation along with nursing charts, patient time in bed, a little bit grumpy, reports good mood, he has a very flat affect, he denies suicidal and homicidal ideation, he denies visual and auditory hallucinations. He is oriented 3, compliant with medications, no significant side effects. Review of Systems Other No somatic complaints Objective Alert: Yes [place]: Person Mood: Oppositional (lessening) Affect: Restricted (somewhat dysphoric) Memory Intact: Comment (not formally assessed) Hallucinations: Other (no hallucinations) Delusions: Yes Delusion Type: Paranoid Suicidal: Ideation (denies SI) Homicidal: Ideation (denies HI) Insight/Judgment Fair Vitals/IOs Vital Signs Date Time Temp Pulse Resp B/P (MAP) Pulse Ox O2 Delivery O2 Flow Rate FiO2 01/20/17 17:48 70 18 109/66 (80) 97 Assessment & Plan Problem List: (1) Bipolar affective, mixed, sev w/ psych ICD Codes: F31.64 - Bipolar disorder, current episode mixed, severe, with psychotic features (2) History of traumatic brain injury ICD Codes: Z87.820 - Personal history of traumatic brain injury Assessment & Plan: Continue current psychotropic regimen. Assessment & Plan Estimated LOS: days Justification for Cont. Inpt. Patient has an elevated risk to decompensate at a lower level of care. Request HC Surrog/Guard Advoc?: Yes Rayshawn Nathan MD Jan 24, 2017 15:30
[2017-01-24 17:21] VITALS: BP 118/57; PULSE 74; RESP 17; TEMP 98; O2SAT 97
[2017-01-24] MEDS: levETIRAcetam 500 MG TAB PO SCH (21:20)
[2017-01-25] MEDS: levETIRAcetam 500 MG TAB PO SCH (09:06)
[2017-01-25] MEDS: lamoTRIgine 25 MG TAB PO SCH (09:07)
[2017-01-25] MEDS: PRAVASTATIN SOD 40 MG TAB PO SCH (09:08)
[2017-01-25] MEDS: RIVAROXABAN 15 MG TAB PO SCH ×2 (09:08→21:17)
[2017-01-25] MEDS: OLANZapine ODT 10 MG TAB PO SCH ×3 (09:10→21:16)
--- NOTE | 2017-01-25 10:45 | HHI.PYPN ---
Subjective Remarks Patient seen and examined with nurse. Chart reviewed. Case discussed in treatment team. On my exam today, patient is calm and fairly pleasant. No hostile or aggressive behavior noted. He can provide no explanation for his oppositionality in recent days, when asked. Denies any HI or violent thoughts. No side effects from medications. No physical complaints. Review of Systems ROS Limitations: Poor Historian Except as stated in HPI: all other systems reviewed are Neg Objective Alert: Yes [place]: Person Mood: Calm Affect: Blunted Memory Intact: Comment (not formally assessed) Hallucinations: Other (No AVH) Delusions: Yes Delusions: No Delusion Type: Other (No delusions elicited today) Suicidal: Ideation (No SI) Homicidal: Ideation (denies HI) Insight/Judgment Poor Remarks No motor abnormalities noted. Labs Labs reviewed. Vitals/IOs Vital Signs Date Time Temp Pulse Resp B/P (MAP) Pulse Ox O2 Delivery O2 Flow Rate FiO2 01/24/17 17:21 98.0 74 17 118/57 (33) 97 Assessment & Plan Problem List: (1) Bipolar affective, mixed, sev w/ psych ICD Codes: F31.64 - Bipolar disorder, current episode mixed, severe, with psychotic features (2) History of traumatic brain injury ICD Codes: Z87.820 - Personal history of traumatic brain injury Assessment & Plan Continue Zyprexa 10mg TID as ordered. Titrate Trileptal to 600mg BID and taper Keppra to 750mg daily as recommended by neurology. Check BMP to ensure patient is not experiencing hyponatremia from Trileptal that might be exacerbated by a dose titration. Continue to monitor on the inpatient unit. Continue other medications care as ordered. Justification for Cont. Inpt. Med changes. Risk for decompensation in less restrictive environment. Discharge Planning Return to facility versus state psychiatric hospitalization. Request HC Surrog/Guard Advoc?: Yes Karl Winston MD Jan 25, 2017 10:45
[2017-01-25 17:52] VITALS: BP 124/65; PULSE 84; RESP 18; O2SAT 94
[2017-01-25] MEDS: OXcarbazepine 300 MG TAB PO SCH (21:17)
[2017-01-26] MEDS: RIVAROXABAN 15 MG TAB PO SCH ×2 (07:51→21:00)
[2017-01-26] MEDS: levETIRAcetam 250 MG TAB PO SCH (07:51)
[2017-01-26] MEDS: lamoTRIgine 25 MG TAB PO SCH ×2 (07:51→21:34)
[2017-01-26] MEDS: PRAVASTATIN SOD 40 MG TAB PO SCH (07:51)
[2017-01-26] MEDS: OXcarbazepine 300 MG TAB PO SCH ×2 (07:51→21:34)
[2017-01-26] MEDS: OLANZapine ODT 10 MG TAB PO SCH ×3 (08:30→21:35)
--- NOTE | 2017-01-26 10:14 | HHI.PYPN ---
Subjective Remarks Patient seen and examined with counselor and nurse. Chart reviewed. Case discussed with nursing staff who reports that the patient once again became rude and oppositional yesterday evening. Counselor has been in contact with his facility and reports that, although the patient is apparently behaves in this way on occasion there, it is intermittent and rare. On my exam, patient remains argumentative and irritable. When asked about the causes of his change in demeanor yesterday, he replies with "life goes on." He gives this same answer to several of my questions, and is not interested in interview generally. No side effects from medications. No physical complaints. Review of Systems ROS Limitations: Poor Historian Except as stated in HPI: all other systems reviewed are Neg Objective Alert: Yes [place]: Person Mood: Oppositional, Other (irritable) Affect: Restricted Memory Intact: Comment (not formally assessed) Hallucinations: Other (none) Delusions: Yes Delusion Type: Other (no delusions) Suicidal: Ideation (No SI) Homicidal: Ideation (no HI) Insight/Judgment Poor Remarks no motor abnormalities noted. No visible rash. Labs Labs reviewed. Spoke with lab, and patient refused BMP this morning. Vitals/IOs Vital Signs Date Time Temp Pulse Resp B/P (MAP) Pulse Ox O2 Delivery O2 Flow Rate FiO2 01/25/17 17:52 84 18 124/65 (84) 94 01/24/17 17:21 98.0 Assessment & Plan Problem List: (1) Bipolar affective, mixed, sev w/ psych ICD Codes: F31.64 - Bipolar disorder, current episode mixed, severe, with psychotic features (2) History of traumatic brain injury ICD Codes: Z87.820 - Personal history of traumatic brain injury Assessment & Plan Titrate Lamictal to 25mg BID for mood stabilization; checked interactions with LexiComp, none besides CIRCUIT RECORDER sedation and we have seen no evidence of sedation so far. Continue Zyprexa as ordered. Continue Trileptal and Keppra with plan for eventual discontinuation of Keppra as per neuro recs. Continue to monitor on high acuity unit. Continue other medications and care as ordered. Justification for Cont. Inpt. Impairment in social function. Risk for decompensation and less restrictive environment. Discharge Planning Return to facility versus state psychiatric hospitalization Request HC Surrog/Guard Advoc?: Yes Karl Winston MD Jan 26, 2017 10:14
[2017-01-26 17:29] VITALS: BP 104/59; RESP 18; O2SAT 96
[2017-01-27] MEDS: OLANZapine ODT 10 MG TAB PO SCH ×3 (09:00→21:04)
--- NOTE | 2017-01-27 09:18 | HHI.PYPN ---
Subjective Remarks Patient seen and examined with nurse. Chart reviewed. Case discussed with nursing staff. On my examination this morning, the patient is affable and easy- going. He even smiles at intervals. Says he slept well. No psychotic symptoms at this time. Denies side effects from medications. No physical complaints. Review of Systems ROS Limitations: Poor Historian Except as stated in HPI: all other systems reviewed are Neg Objective Alert: Yes [place]: Person Mood: Calm Affect: Appropriate (fairly appropriate today) Memory Intact: Comment (not formally assessed) Hallucinations: Other (No AVH) Delusions: No Delusion Type: Other (No delusional material) Suicidal: Ideation (No SI) Homicidal: Ideation (No HI) Insight/Judgment Poor Remarks No motor abnormalities noted. No visible rash. Labs Labs reviewed. Vitals/IOs Vital Signs Date Time Temp Pulse Resp B/P (MAP) Pulse Ox O2 Delivery O2 Flow Rate FiO2 01/26/17 17:29 18 104/59 (74) 96 01/25/17 17:52 84 01/24/17 17:21 98.0 Assessment & Plan Problem List: (1) Bipolar affective, mixed, sev w/ psych ICD Codes: F31.64 - Bipolar disorder, current episode mixed, severe, with psychotic features (2) History of traumatic brain injury ICD Codes: Z87.820 - Personal history of traumatic brain injury Assessment & Plan Continue Lamictal as ordered. Continue Trileptal as ordered. Continue Zyprexa as ordered. Continue Keppra as ordered for now with plans to discontinue. Check and updated set of basic laboratories. Continue to monitor on the inpatient unit. Continue other medications and care as ordered. Justification for Cont. Inpt. Risk for decompensation in less restrictive environment Discharge Planning Pending psychiatric stabilization. Possible return to facility versus state psychiatric hospitalization. Request HC Surrog/Guard Advoc?: Yes Karl Winston MD Jan 27, 2017 09:17
[2017-01-27] MEDS: RIVAROXABAN 15 MG TAB PO SCH ×2 (09:20→21:02)
[2017-01-27] MEDS: OXcarbazepine 300 MG TAB PO SCH ×2 (09:20→21:03)
[2017-01-27] MEDS: lamoTRIgine 25 MG TAB PO SCH ×2 (09:20→21:03)
[2017-01-27] MEDS: PRAVASTATIN SOD 40 MG TAB PO SCH (09:21)
[2017-01-27] MEDS: levETIRAcetam 250 MG TAB PO SCH (09:21)
[2017-01-27 15:47] LABS: AUTOMATED NEUTROPHIL # 3.4 TH/MM3 (1.8-7.7); BASOPHIL % 0.7 % (0.0-2.0); EOSINOPHIL # 0.3 TH/MM3 (0-0.4); EOSINOPHIL % 4.6 % (0.0-4.0); HEMATOCRIT 36.9 % (39.0-51.0); HEMO FLAGS DIFF FINAL; LYMPH % 28.3 % (9.0-44.0); LYMPHOCYTE # 1.6 TH/MM3 (1.0-4.8); MEAN CELL VOLUME 95.6 FL (80.0-100.0); MEAN CORPUSCULAR HEMOGLOBIN 31.6 PG (27.0-34.0); MEAN CORPUSCULAR HGB CONC 33.1 % (32.0-36.0); MONO % 8.4 % (0.0-8.0); PLATELET COUNT 228 TH/MM3 (150-450); RED BLOOD COUNT 3.86 MIL/MM3 (4.50-5.90); RED CELL DISTRIBUTION WIDTH 15.6 % (11.6-17.2); WHITE BLOOD COUNT 5.8 TH/MM3 (4.0-11.0)
[2017-01-27 16:20] LABS: ALT (GPT) 34 U/L (12-78); ANION GAP 5 MEQ/L (5-15); AST (GOT) 38 U/L (15-37); BICARBONATE 27.5 MEQ/L (21.0-32.0); BLOOD UREA NITROGEN 21 MG/DL (7-18); CHLORIDE 108 MEQ/L (98-107); GLOMERULAR FILTRATION RATE 103 ML/MIN (>89); POTASSIUM 3.9 MEQ/L (3.5-5.1); SODIUM (NA) 140 MEQ/L (136-145)
[2017-01-27 16:23] LABS: ALKALINE PHOSPHATASE 140 U/L (45-117); TOTAL BILIRUBIN ADULT 0.3 MG/DL (0.2-1.0)
[2017-01-27 18:21] VITALS: BP 118/65; PULSE 66; RESP 18; O2SAT 100
[2017-01-28] MEDS: OXcarbazepine 300 MG TAB PO SCH ×2 (09:14→20:25)
[2017-01-28] MEDS: PRAVASTATIN SOD 40 MG TAB PO SCH (09:14)
[2017-01-28] MEDS: RIVAROXABAN 15 MG TAB PO SCH ×2 (09:14→20:25)
[2017-01-28] MEDS: lamoTRIgine 25 MG TAB PO SCH ×2 (09:14→20:25)
[2017-01-28] MEDS: levETIRAcetam 250 MG TAB PO SCH (09:14)
[2017-01-28] MEDS: OLANZapine ODT 10 MG TAB PO SCH ×3 (09:16→20:27)
--- NOTE | 2017-01-28 15:59 | HHI.PYPN ---
Subjective Remarks Patient seen and examined with counselor and nurse. Chart reviewed. Case discussed with nursing staff reports the patient is perhaps a little less irritable. He did refuse vitals this morning. On my examination today, the patient is argumentative but not physically aggressive. He remains quite sarcastic and dysphoric when engaged in interview but otherwise is fairly inert , contenting himself to watch television quietly in the day area. Denies side effects from medications. Complains of some chronic back pain but no other physical complaints. Review of Systems ROS Limitations: Poor Historian Except as stated in HPI: all other systems reviewed are Neg Objective Alert: Yes [place]: Person Mood: Other (somewhat irritable) Affect: Restricted Memory Intact: Comment (not formally assessed) Hallucinations: Other (None) Delusions: No Delusion Type: Other (No delusional material) Suicidal: Ideation (No SI) Homicidal: Ideation (No HI) Insight/Judgment Poor Remarks No motoric abnormalities noted Labs Labs reviewed. CBC reveals mild normocytic anemia. CMP reveals mild transaminitis. Vitals/IOs Vital Signs Date Time Temp Pulse Resp B/P (MAP) Pulse Ox O2 Delivery O2 Flow Rate FiO2 01/27/17 18:21 66 18 118/65 (82) 100 01/24/17 17:21 98.0 Assessment & Plan Problem List: (1) Bipolar affective, mixed, sev w/ psych ICD Codes: F31.64 - Bipolar disorder, current episode mixed, severe, with psychotic features (2) History of traumatic brain injury ICD Codes: Z87.820 - Personal history of traumatic brain injury Assessment & Plan Continue Zyprexa as ordered. Continue Trileptal and Lamictal as ordered. Plan for further titration of Lamictal. Continue Keppra for now but plan to discontinue middle of next week as per neurology recommendations. Check a CBC and LFTs after the weekend. Continue to monitor on the high acuity unit. Continue other medications and care as ordered. Justification for Cont. Inpt. Impairment in social function. Risk for decompensation in less restrictive environment. Discharge Planning Pending psychiatric stabilization. Return to facility versus state psychiatric hospitalization. Request HC Surrog/Guard Advoc?: Yes Karl Winston MD Jan 28, 2017 15:59
[2017-01-29 05:38] VITALS: BP 136/65; PULSE 66; RESP 18; TEMP 97.3; O2SAT 97
[2017-01-29] MEDS: levETIRAcetam 250 MG TAB PO SCH (09:28)
[2017-01-29] MEDS: lamoTRIgine 25 MG TAB PO SCH ×2 (09:28→20:16)
[2017-01-29] MEDS: OXcarbazepine 300 MG TAB PO SCH ×2 (09:28→20:16)
[2017-01-29] MEDS: PRAVASTATIN SOD 40 MG TAB PO SCH (09:28)
[2017-01-29] MEDS: RIVAROXABAN 15 MG TAB PO SCH ×2 (09:28→20:16)
[2017-01-29] MEDS: OLANZapine ODT 10 MG TAB PO SCH ×3 (09:30→20:21)
--- NOTE | 2017-01-29 19:25 | HHI.PYPN ---
Subjective Remarks Patient was seen and case discussed with nursing. Patient remains disheveled and seclusive to self. He is more cooperative and is no longer room like he was in our meeting 2 weeks ago. Is largely apathetic. Laying in bed, refuses to make eye contact. Denies psychotic symptoms. Compliant with medications Objective Alert: Yes [place]: Person Mood: Oppositional Affect: Blunted Memory Intact: Comment (not formally assessed) Hallucinations: Other (None) Delusions: No Delusion Type: Other (No delusional material) Suicidal: Ideation (No SI) Homicidal: Ideation (No HI) Insight/Judgment Poor Vitals/IOs Vital Signs Date Time Temp Pulse Resp B/P (MAP) Pulse Ox O2 Delivery O2 Flow Rate FiO2 01/29/17 05:38 97.3 66 18 136/65 (88) 97 Assessment & Plan Problem List: (1) Bipolar affective, mixed, sev w/ psych ICD Codes: F31.64 - Bipolar disorder, current episode mixed, severe, with psychotic features (2) History of traumatic brain injury ICD Codes: Z87.820 - Personal history of traumatic brain injury Assessment & Plan Continue current treatment plan Justification for Cont. Inpt. Patient would decompensate in a less restrictive setting Request HC Surrog/Guard Advoc?: Yes Glenn Caballero DO Jan 29, 2017 19:25
[2017-01-30 05:30] VITALS: BP 112/59; PULSE 68; RESP 16; TEMP 97.6; O2SAT 97
[2017-01-30] MEDS: PRAVASTATIN SOD 40 MG TAB PO SCH (09:10)
[2017-01-30] MEDS: levETIRAcetam 250 MG TAB PO SCH (09:10)
[2017-01-30] MEDS: OXcarbazepine 300 MG TAB PO SCH ×2 (09:10→20:47)
[2017-01-30] MEDS: lamoTRIgine 25 MG TAB PO SCH ×2 (09:10→20:48)
[2017-01-30] MEDS: OLANZapine ODT 10 MG TAB PO SCH ×3 (09:12→20:49)
[2017-01-30] MEDS: RIVAROXABAN 15 MG TAB PO SCH ×2 (13:55→20:47)
--- NOTE | 2017-01-30 18:01 | HHI.PYPN ---
Subjective Remarks Patient was seen and case discussed with nursing. Patient is markedly more irritable and rude compared to yesterday. He is sarcastic and mimics the questions that are being asked of him. He is not showering, poor hygiene, seclusive to self. He is compliant with medications redirection. Insight remains poor. No aggressive outbursts Objective Alert: Yes [place]: Person Mood: Agitated, Oppositional Affect: Other (angry) Memory Intact: Comment (not formally assessed) Hallucinations: Other (None) Delusions: No Delusion Type: Other (No delusional material) Suicidal: Ideation (No SI) Homicidal: Ideation (No HI) Insight/Judgment Poor Vitals/IOs Vital Signs Date Time Temp Pulse Resp B/P (MAP) Pulse Ox O2 Delivery O2 Flow Rate FiO2 01/30/17 05:30 97.6 68 16 112/59 (76) 97 Assessment & Plan Problem List: (1) Bipolar affective, mixed, sev w/ psych ICD Codes: F31.64 - Bipolar disorder, current episode mixed, severe, with psychotic features (2) History of traumatic brain injury ICD Codes: Z87.820 - Personal history of traumatic brain injury Assessment & Plan Continue current treatment plan Justification for Cont. Inpt. Patient will decompensate in a less restrictive setting Request HC Surrog/Guard Advoc?: Yes Glenn Caballero DO Jan 30, 2017 18:01
--- NOTE | 2017-01-31 08:37 | HHI.PYPN ---
Subjective Remarks Patient seen and examined with nurse. Chart reviewed. Case discussed with nursing staff. Patient medication compliant but remains quite oppositional per nursing staff. On my examination this morning, the patient is argumentative and rancorous. He sarcastically suggests we give him more medications "just gimmie more, what difference does it make", although he notes, "I don't need most of it." He has remained medication adherent, though. Denies side effects from medications. No physical complaints. Review of Systems ROS Limitations: Poor Historian Except as stated in HPI: all other systems reviewed are Neg Objective Alert: Yes [place]: Person Mood: Oppositional Affect: Restricted Memory Intact: Comment (Not assessed) Hallucinations: Other (No AVH) Delusions: No Delusion Type: Other (No delusions) Suicidal: Ideation (None) Homicidal: Ideation (None) Insight/Judgment Poor Remarks No motor abnormalities noted. No visible rash. Labs Labs reviewed. CBC/CMP cancelled for unclear reasons. Vitals/IOs Vital Signs Date Time Temp Pulse Resp B/P (MAP) Pulse Ox O2 Delivery O2 Flow Rate FiO2 01/30/17 05:30 97.6 68 16 112/59 (76) 97 Assessment & Plan Problem List: (1) Bipolar affective, mixed, sev w/ psych ICD Codes: F31.64 - Bipolar disorder, current episode mixed, severe, with psychotic features (2) History of traumatic brain injury ICD Codes: Z87.820 - Personal history of traumatic brain injury Assessment & Plan Titrate Lamictal to 50 mg twice daily for mood stabilization. Continue Trileptal and Zyprexa as ordered. We will plan to discontinue Keppra after tomorrow's dose as recommended by neurologist. No ictal activity has been noted. I have reordered the CBC and CMP. Continue to monitor on the high acuity unit. Continue other medications and care as ordered. Justification for Cont. Inpt. Med changes. Impairment in social function. High risk for decompensation in less restrictive environment. Discharge Planning Return to facility versus state psychiatric hospitalization Request HC Surrog/Guard Advoc?: Yes Karl Winston MD Jan 31, 2017 08:37
[2017-01-31] MEDS: RIVAROXABAN 15 MG TAB PO SCH ×2 (08:59→21:00)
[2017-01-31] MEDS: levETIRAcetam 250 MG TAB PO SCH (09:00)
[2017-01-31] MEDS: OXcarbazepine 300 MG TAB PO SCH ×2 (09:00→21:00)
[2017-01-31] MEDS: lamoTRIgine 25 MG TAB PO SCH ×2 (09:00→21:00)
[2017-01-31] MEDS: OLANZapine ODT 10 MG TAB PO SCH ×3 (09:00→21:00)
[2017-01-31] MEDS: PRAVASTATIN SOD 40 MG TAB PO SCH (09:00)
[2017-02-01] MEDS: OXcarbazepine 300 MG TAB PO SCH ×2 (08:27→21:00)
[2017-02-01] MEDS: levETIRAcetam 250 MG TAB PO SCH (08:27)
[2017-02-01] MEDS: PRAVASTATIN SOD 40 MG TAB PO SCH (08:27)
[2017-02-01] MEDS: RIVAROXABAN 15 MG TAB PO SCH ×2 (08:27→21:00)
[2017-02-01] MEDS: lamoTRIgine 25 MG TAB PO SCH ×2 (08:28→21:00)
[2017-02-01] MEDS: OLANZapine ODT 10 MG TAB PO SCH ×3 (09:00→21:00)
[2017-02-01 09:33] LABS: AUTOMATED NEUTROPHIL # 3.5 TH/MM3 (1.8-7.7); BASOPHIL % 0.6 % (0.0-2.0); EOSINOPHIL # 0.3 TH/MM3 (0-0.4); EOSINOPHIL % 4.4 % (0.0-4.0); HEMATOCRIT 34.1 % (39.0-51.0); HEMO FLAGS DIFF FINAL; LYMPH % 27.7 % (9.0-44.0); LYMPHOCYTE # 1.6 TH/MM3 (1.0-4.8); MEAN CELL VOLUME 95.2 FL (80.0-100.0); MEAN CORPUSCULAR HEMOGLOBIN 31.3 PG (27.0-34.0); MEAN CORPUSCULAR HGB CONC 32.8 % (32.0-36.0); MONO % 8.4 % (0.0-8.0); NEUT % 58.9 % (16.0-70.0); PLATELET COUNT 237 TH/MM3 (150-450); RED BLOOD COUNT 3.58 MIL/MM3 (4.50-5.90); RED CELL DISTRIBUTION WIDTH 15.4 % (11.6-17.2); WHITE BLOOD COUNT 5.9 TH/MM3 (4.0-11.0)
[2017-02-01 09:58] LABS: ANION GAP 5 MEQ/L (5-15); BICARBONATE 27.2 MEQ/L (21.0-32.0); BLOOD UREA NITROGEN 17 MG/DL (7-18); CHLORIDE 104 MEQ/L (98-107); GLOMERULAR FILTRATION RATE 117 ML/MIN (>89); POTASSIUM 4.3 MEQ/L (3.5-5.1); SODIUM (NA) 136 MEQ/L (136-145)
[2017-02-01 09:59] LABS: AST (GOT) 38 U/L (15-37)
[2017-02-01 10:02] LABS: ALKALINE PHOSPHATASE 137 U/L (45-117); ALT (GPT) 29 U/L (12-78); TOTAL BILIRUBIN ADULT 0.2 MG/DL (0.2-1.0)
--- NOTE | 2017-02-01 12:34 | HHI.PYPN ---
Subjective Remarks Patient seen and examined. Chart reviewed. Case discussed in treatment team. Per nursing staff, the patient is noted to be less verbally aggressive. On my examination today, the patient presents as fairly pleasant and cooperative. He even smiles at intervals. He tells me he has recently spoken with his mother and she is coming for a visit. Denies side effects from medications. No physical complaints. Review of Systems ROS Limitations: Poor Historian Except as stated in HPI: all other systems reviewed are Neg Objective Alert: Yes [place]: Person Mood: Calm Affect: Appropriate Memory Intact: Comment (Not assessed) Hallucinations: Other (No AVH) Delusions: No Delusion Type: Other (no delusions elicited) Suicidal: Ideation (no SI) Homicidal: Ideation (no HI) Insight/Judgment Poor Remarks No motor abnormalities noted. No visible rash. Labs Test 02/01/17 07:25 White Blood Count 5.9 TH/MM3 Red Blood Count 3.58 MIL/MM3 Hemoglobin 11.2 GM/DL Hematocrit 34.1 % Mean Corpuscular Volume 95.2 FL Mean Corpuscular Hemoglobin 31.3 PG Mean Corpuscular Hemoglobin Concent 32.8 % Red Cell Distribution Width 15.4 % Platelet Count 237 TH/MM3 Mean Platelet Volume 7.2 FL Neutrophils (%) (Auto) 58.9 % Lymphocytes (%) (Auto) 27.7 % Monocytes (%) (Auto) 8.4 % Eosinophils (%) (Auto) 4.4 % Basophils (%) (Auto) 0.6 % Neutrophils # (Auto) 3.5 TH/MM3 Lymphocytes # (Auto) 1.6 TH/MM3 Monocytes # (Auto) 0.5 TH/MM3 Eosinophils # (Auto) 0.3 TH/MM3 Basophils # (Auto) 0.0 TH/MM3 CBC Comment DIFF FINAL Differential Comment Blood Urea Nitrogen 17 MG/DL Creatinine 0.69 MG/DL Random Glucose 78 MG/DL Total Protein 6.2 GM/DL Albumin 3.0 GM/DL Calcium Level 8.6 MG/DL Alkaline Phosphatase 137 U/L Aspartate Amino Transf (AST/SGOT) 38 U/L Alanine Aminotransferase (ALT/SGPT) 29 U/L Total Bilirubin 0.2 MG/DL Sodium Level 136 MEQ/L Potassium Level 4.3 MEQ/L Chloride Level 104 MEQ/L Carbon Dioxide Level 27.2 MEQ/L Anion Gap 5 MEQ/L Estimat Glomerular Filtration Rate 117 ML/MIN Labs reviewed. Stable mild transaminitis. Mild interval worsening of normocytic anemia. Vitals/IOs Vital Signs Date Time Temp Pulse Resp B/P (MAP) Pulse Ox O2 Delivery O2 Flow Rate FiO2 01/30/17 05:30 97.6 68 16 112/59 (52) 97 Assessment & Plan Problem List: (1) Bipolar affective, mixed, sev w/ psych ICD Codes: F31.64 - Bipolar disorder, current episode mixed, severe, with psychotic features (2) History of traumatic brain injury ICD Codes: Z87.820 - Personal history of traumatic brain injury Assessment & Plan Discontinue Keppra as per neurology recommendations. Continue Trileptal and Lamictal as ordered. Continue Zyprexa as ordered. Continue to monitor on the inpatient unit. Continue other medications and care as ordered. Justification for Cont. Inpt. Risk for decompensation in less restrictive environment. Discharge Planning Return to facility versus state psychiatric hospital referral. Request HC Surrog/Guard Advoc?: Yes Karl Winston MD Feb 01, 2017 12:34
[2017-02-01 17:50] LABS: TRANSFERRIN IRON PROFILE 197 MG/DL (200-360)
[2017-02-01 17:53] LABS: FERRITIN 85 NG/ML (26-388)
[2017-02-01] MEDS: PANTOPRAZOLE SOD 40 MG DELAYED RELEASE TAB PO SCH (21:00)
[2017-02-02] MEDS: lamoTRIgine 25 MG TAB PO SCH ×2 (08:38→20:26)
[2017-02-02] MEDS: OXcarbazepine 300 MG TAB PO SCH ×2 (08:38→20:26)
[2017-02-02] MEDS: PANTOPRAZOLE SOD 40 MG DELAYED RELEASE TAB PO SCH ×2 (08:38→20:26)
[2017-02-02] MEDS: PRAVASTATIN SOD 40 MG TAB PO SCH (08:38)
[2017-02-02] MEDS: OLANZapine ODT 10 MG TAB PO SCH ×3 (08:39→20:26)
[2017-02-02] MEDS: RIVAROXABAN 20 MG TAB PO SCH (08:39)
--- NOTE | 2017-02-02 09:36 | HHI.PYPN ---
Subjective Remarks Patient seen and examined with nurse. Chart reviewed. Case discussed with nursing staff. Calm so far this morning, somewhat irritable yesterday afternoon. On my examination today, patient is sitting calmly in the day area. He has no explanation for ongoing irritability in the afternoons. He says that he will endeavor to be calm today. No psychotic symptoms. No side effects from medications. No physical complaints at this time. Review of Systems ROS Limitations: Poor Historian Except as stated in HPI: all other systems reviewed are Neg Objective Alert: Yes [place]: Person Mood: Calm Affect: Blunted Memory Intact: Comment (Not assessed) Hallucinations: Other (None) Delusions: No Delusion Type: Other (No delusions) Suicidal: Ideation (no SI) Homicidal: Ideation (no HI) Insight/Judgment Poor Remarks No motoric abnormalities noted. No visible rash. Labs Labs reviewed. Vitals/IOs Vital Signs Date Time Temp Pulse Resp B/P (MAP) Pulse Ox O2 Delivery O2 Flow Rate FiO2 01/30/17 05:30 97.6 68 16 112/59 (76) 97 Assessment & Plan Problem List: (1) Bipolar affective, mixed, sev w/ psych ICD Codes: F31.64 - Bipolar disorder, current episode mixed, severe, with psychotic features (2) History of traumatic brain injury ICD Codes: Z87.820 - Personal history of traumatic brain injury Assessment & Plan Continue current psychotropics as ordered. Observe for improvement in irritability off of Keppra. Hospitalist input noted and appreciated. Continue to monitor on the inpatient psychiatric unit. Continue other medications and care as ordered. Justification for Cont. Inpt. Risk for decompensation in less restrictive environment Discharge Planning Return to facility versus [facility] psychiatric hospital referral Request HC Surrog/Guard Advoc?: Yes Karl Winston MD Feb 02, 2017 09:36
--- NOTE | 2017-02-02 14:35 | PD.TTN ---
Patient Problems 1. Discharge planning 2. Medication compliance 3. Knowledge deficit 4. Lack of coping skills Progress Toward Goals Provider Present: Dr. Lucy Winston Provider Input: Dr. Winston treatment team met to discuss patient's treatment plan, discharge and medication. Patient is medication complaint. Patient presents at his baseline. Patient can be discharged tomorrow if he remains stablized. 02/01- Pt Lamictal will be increased as well as possible D/C of Keppra as a measure of seeing if this has any impact on ongoing behavior issues. Medication regiment will continue to be evaluated to assist with stabilization. He has been referred to [facility]. Nurse(s) Present: Jagdish Dominguez, RN Nurse(s) Input: Patient's nurse Jagdish Jeffries RN reports patient is medication compliant, poorly motivated. Goals for patient is to continue to medication compliant, not violent, not to have auditory and visual hallucinations. 02/01- Pt appears discharge focused, less agitated, less aggressive and with mixed medication compliance. Psychiatric Counselors Present: BLADIMIR Hernandez Psych Therapist Input: Patient continues to be seen in dayroom. Patient is withdrawn, easily agitated, anxious, affect blunted. Patient is medication complaint. Patient is very unpredictable, intrusive, and restless on unit. Patient has been eating and sleeping ok. Patient continues to present paranoid. Patient is alert to person, place, and time but has poor insight into his situation. 02/01- Pt continues to appear easily agitated, labile, uncooperative, guarded, with poor insight and limited use of coping skills to regulate emotions. Pt presents with limited understanding of his mental illness and general resistance to treatmen as a result of this. Pt remains paranoid of providers in this facility and at his [facility]. He appears mainly withdrawn to self. Group Spec/RT/OT/MENDOZA Present: KELLY Flores Group Spec/RT/OT/MENDOZA Input: Patient isoloates to self. Discharged focused. 02/01- Pt does not attend groups and appears to isolate to himself. Discharge Plan [facility], Other Return to [facility] but has also been referred for [facility] if he cannot stabilize. Documentation Scribe: BLADIMIR Hernandez Jonathan LMHC Feb 02, 2017 14:35
--- NOTE | 2017-02-02 16:23 | HHI.PR ---
Subjective Remarks Follow-up for anemia. Pt seen and evaluated. He denied fatigue shortness of breath, chest pain, marlene bleeding, or black and tarry stools. He did endorse a sensation of having "gas" in his lower abdomen and reported a "pressure" like sensation. Pt reported not having had a bowel movement since yesterday. Per RN no acute issues noted or reported overnight or since start of shift. Objective Result Diagram: 02/01/17 0725 02/01/17 0725 Imaging Last Impressions Lower Extremity Ultrasound 01/11/17 0000 Signed Impressions: Service Date/Time: Wednesday, January 11, 2017 10:43 - CONCLUSION: Nonocclusive thrombus right common femoral vein extending to the superficial femoral vein and popliteal vein Jaspreet Fields MD Objective Remarks GENERAL: Pt seen and examined in his room on psychiatric service. NAD. SKIN: Warm and dry. HEAD: Normocephalic. EYES: No scleral icterus. No injection or drainage. NECK: Supple, trachea midline. No lymphadenopathy. CARDIOVASCULAR: Regular rate and rhythm without murmurs, gallops, or rubs. RESPIRATORY: Breath sounds equal bilaterally. No accessory muscle use. GASTROINTESTINAL: Abdomen soft, non-tender, nondistended. MUSCULOSKELETAL: No cyanosis, or edema. BACK: Nontender without obvious deformity. No CVA tenderness. Procedures None. Medications and IVs Current Medications Medications (Trade) Dose Ordered Sig/Thaddeus Route Start Time Stop Time Status Last Admin (Tylenol) 650 mg Q4H PRN PO 01/04/17 13:45 01/30/17 05:28 (Milk Of Magnesia Liq) 30 ml DAILY PRN PO 01/04/17 13:45 (Mag-Al Plus Susp Liq) 30 ml Q6H PRN PO 01/04/17 13:45 (Pravachol) 40 mg DAILY PO 01/05/17 09:00 02/02/17 08:38 (Ativan) 1 mg Q6H PRN PO 01/05/17 12:00 Future hold (Ativan Inj) 1 mg Q6H PRN IM 01/05/17 12:00 Future hold (Cogentin) 1 mg Q12HR PRN PO 01/05/17 12:00 (Cogentin Inj) 1 mg Q12HR PRN IM 01/05/17 12:00 (Benadryl) 50 mg HS PRN PO 01/05/17 12:00 Future Hold (Haldol) 2 mg Q6H PRN PO 01/05/17 12:00 Future hold (Haldol Inj) 2 mg Q6H PRN IM 01/05/17 12:00 Future hold 01/14/17 15:25 (Xarelto) 20 mg DAILY PO 02/02/17 09:00 02/02/17 08:39 (ZyPREXA ZYDIS ODT) 10 mg DAILY@0900,1300,2100 PO 01/21/17 21:00 02/02/17 12:32 (ZyPREXA INJ) 10 mg DAILY@0900,1300,2100 PRN IM 01/21/17 20:59 (Trileptal) 600 mg BID PO 01/25/17 21:00 02/02/17 08:38 (LaMICtal) 50 mg BID PO 01/31/17 21:00 02/02/17 08:38 (Protonix) 40 mg Q12HR PO 02/01/17 21:00 02/02/17 08:38 Urinary Catheter: No A/P Problem List: (1) Normocytic anemia ICD Code: D64.9 - Anemia, unspecified Status: Acute Assessment and Plan The patient is a 61-year-old male with a past medical history of seizures 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 Normocytic anemia -H&H -reticulocyte count. -Hemoccult study ordered -Iron low (58) -Ferritin and TIBC WNL -Protoniox q 12 hrs -Consult GI should he evidence continued decrease or positive hemoccult study. Bipolar disorder -As per psychiatric team. Case discussed with pt, RN, and Dr. Melo. Discharge Planning Ongoing. Cayden Reynaga Jr. Feb 02, 2017 16:22
[2017-02-02 18:54] VITALS: BP 108/62; PULSE 66; RESP 20; TEMP 98.2
[2017-02-03 05:41] VITALS: BP 130/67; PULSE 67; RESP 16; TEMP 97.9; O2SAT 96
[2017-02-03] MEDS: PRAVASTATIN SOD 40 MG TAB PO SCH (08:05)
[2017-02-03] MEDS: OXcarbazepine 300 MG TAB PO SCH ×2 (08:05→20:22)
[2017-02-03] MEDS: lamoTRIgine 25 MG TAB PO SCH ×2 (08:05→20:22)
[2017-02-03] MEDS: PANTOPRAZOLE SOD 40 MG DELAYED RELEASE TAB PO SCH ×2 (08:05→20:22)
[2017-02-03] MEDS: OLANZapine ODT 10 MG TAB PO SCH ×3 (08:08→20:24)
[2017-02-03 08:32] LABS: HEMATOCRIT 32.6 % (39.0-51.0); RETIC % 3.4 % (0.4-3.0); REVIEW FLAG FINAL
--- NOTE | 2017-02-03 10:05 | HHI.PYPN ---
Subjective Remarks Patient seen and examined. Chart reviewed. Case discussed with nursing staff. No behavioral issues noted. On my examination today, the patient is calm and cooperative. No psychotic symptoms. No SI or HI. No side effects from medications. No physical complaints. Review of Systems ROS Limitations: Poor Historian Except as stated in HPI: all other systems reviewed are Neg Objective Alert: Yes [place]: Person Mood: Calm Affect: Blunted (remains a little blunted) Memory Intact: Comment (Not assessed) Hallucinations: Other (no hallucinations) Delusions: No Delusion Type: Other (No delusions) Suicidal: Ideation (no SI) Homicidal: Ideation (no HI) Insight/Judgment Poor Remarks No hand tremor, no dystonia, no dyskinesias noted. Labs Test 02/03/17 07:49 Hemoglobin 10.8 GM/DL Hematocrit 32.6 % Blood Smear Pathologist Review Reticulocyte Count 3.4 % Absolute Reticulocyte Count 119.0 MIL/L Date/Time Source Procedure Growth Status 02/02/17 14:54 Stool Stool Stool Occult Blood (LORI) - Final HEMOCCULT POSITIVE Complete Vitals/IOs Vital Signs Date Time Temp Pulse Resp B/P (MAP) Pulse Ox O2 Delivery O2 Flow Rate FiO2 02/03/17 05:41 97.9 67 16 130/67 (88) 96 Assessment & Plan Problem List: (1) Bipolar affective, mixed, sev w/ psych ICD Codes: F31.64 - Bipolar disorder, current episode mixed, severe, with psychotic features (2) History of traumatic brain injury ICD Codes: Z87.820 - Personal history of traumatic brain injury Assessment & Plan Patient seems to be doing well from a psychiatric standpoint. Awaiting input from the hospitalist regarding anemia and positive Hemoccult study. Continue to monitor on the inpatient unit. Continue other medications and care as ordered. Justification for Cont. Inpt. Risk for decompensation in less restrictive environment Discharge Planning Counselor to have patient's facility, and evaluate him for return there once medically cleared. Request HC Surrog/Guard Advoc?: Yes Karl Winston MD Feb 03, 2017 10:05
[2017-02-03] MEDS: RIVAROXABAN 20 MG TAB PO SCH (13:16)
--- NOTE | 2017-02-03 18:07 | HHI.PR ---
Subjective Remarks Follow-up for anemia. Pt seen and evaluated. He denied fatigue shortness of breath, chest pain, marlene bleeding (nose bleeds, hematuria), or black and tarry stools. Pressure pt reported yesterday in lower abdomen is less. he stated he is passing gas without difficulty. Pt reported having had a bowel late yesterday. No other issues reported by pt. Per RN no acute issues noted or reported overnight or since start of shift. Objective Vitals Vital Signs Date Time Temp Pulse Resp B/P (MAP) Pulse Ox O2 Delivery O2 Flow Rate FiO2 02/03/17 05:41 97.9 67 16 130/67 (88) 96 02/02/17 18:54 98.2 66 20 108/62 (77) Result Diagram: 02/03/17 0749 02/01/17 0725 Objective Remarks GENERAL: Pt seen and examined in day room on psychiatric service as pt did not want to return to his room. NAD. SKIN: Warm and dry. HEAD: Normocephalic. EYES: No scleral icterus. No injection or drainage. NECK: Supple, trachea midline. enlarged lymph node noted base of left side of neck anterior chain. CARDIOVASCULAR: Regular rate and rhythm without murmurs, gallops, or rubs. RESPIRATORY: Breath sounds equal bilaterally. No accessory muscle use. GASTROINTESTINAL: Abdomen soft, non-tender, nondistended. MUSCULOSKELETAL: No cyanosis, or edema. BACK: Nontender without obvious deformity. No CVA tenderness. Procedures None. Medications and IVs Current Medications Medications (Trade) Dose Ordered Sig/Thaddeus Route Start Time Stop Time Status Last Admin (Tylenol) 650 mg Q4H PRN PO 01/04/17 13:45 01/30/17 05:28 (Milk Of Magnesia Liq) 30 ml DAILY PRN PO 01/04/17 13:45 (Mag-Al Plus Susp Liq) 30 ml Q6H PRN PO 01/04/17 13:45 (Pravachol) 40 mg DAILY PO 01/05/17 09:00 02/03/17 08:05 (Ativan) 1 mg Q6H PRN PO 01/05/17 12:00 Future hold (Ativan Inj) 1 mg Q6H PRN IM 01/05/17 12:00 Future hold (Cogentin) 1 mg Q12HR PRN PO 01/05/17 12:00 (Cogentin Inj) 1 mg Q12HR PRN IM 01/05/17 12:00 (Benadryl) 50 mg HS PRN PO 01/05/17 12:00 Future Hold (Haldol) 2 mg Q6H PRN PO 01/05/17 12:00 Future hold (Haldol Inj) 2 mg Q6H PRN IM 01/05/17 12:00 Future hold 01/14/17 15:25 (Xarelto) 20 mg DAILY PO 02/02/17 09:00 02/03/17 13:16 (ZyPREXA ZYDIS ODT) 10 mg DAILY@0900,1300,2100 PO 01/21/17 21:00 02/03/17 13:16 (ZyPREXA INJ) 10 mg DAILY@0900,1300,2100 PRN IM 01/21/17 20:59 (Trileptal) 600 mg BID PO 01/25/17 21:00 02/03/17 08:05 (LaMICtal) 50 mg BID PO 01/31/17 21:00 02/03/17 08:05 (Protonix) 40 mg Q12HR PO 02/01/17 21:00 02/03/17 08:05 Urinary Catheter: No A/P Problem List: (1) Normocytic anemia ICD Code: D64.9 - Anemia, unspecified Status: Acute Assessment and Plan The patient is a 61-year-old male with a past medical history of seizures and DVT in the right leg who is presenting to the psychiatry unit from [facility] for reasons that are unknown to him. Normocytic anemia: Hgb is 10.8. Labs ordered for 02/05. Hemoccult study is positive. GI consulted. Normocytic anemia -H&H -reticulocyte count. -Hemoccult study ordered -Iron low (58) -Ferritin and TIBC WNL -Protoniox q 12 hrs -Consult GI should he evidence continued decrease or positive hemoccult study. Bipolar disorder -As per psychiatric team. Case discussed with pt and Dr. Melo. Discharge Planning Ongoing. Cayden Reynaga Jr. Feb 03, 2017 18:07
[2017-02-04 05:50] VITALS: BP 113/63; PULSE 76; RESP 18; TEMP 98.3; O2SAT 95
[2017-02-04] MEDS: PANTOPRAZOLE SOD 40 MG DELAYED RELEASE TAB PO SCH ×2 (09:00→20:21)
[2017-02-04] MEDS: lamoTRIgine 25 MG TAB PO SCH ×2 (09:00→20:21)
[2017-02-04] MEDS: OXcarbazepine 300 MG TAB PO SCH ×2 (09:00→20:22)
[2017-02-04] MEDS: PRAVASTATIN SOD 40 MG TAB PO SCH (09:00)
[2017-02-04] MEDS: RIVAROXABAN 20 MG TAB PO SCH (09:01)
[2017-02-04] MEDS: OLANZapine ODT 10 MG TAB PO SCH ×3 (09:24→20:24)
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
--- NOTE | 2017-02-04 11:18 | HHI.PYPN ---
Subjective Remarks Patient seen and examined with counselor and nurse. Chart reviewed. Case discussed with nursing staff. On my examination today, the patient remains calm and pleasant on exam. He apparently had no episodes of behavioral disturbance yesterday afternoon. He is looking forward to visiting with community relations representative from [facility] to see if he can return there. I discussed the finding of anemia and the need for further assessment and workup, and he is agreeable and understanding of the need to work this up. Denies side effects from medications. No physical complaints. Review of Systems ROS Limitations: Poor Historian Except as stated in HPI: all other systems reviewed are Neg Objective Alert: Yes [place]: Person Mood: Calm Affect: Appropriate, Blunted Memory Intact: Comment (Not assessed) Hallucinations: Other (no AVH) Delusions: No Delusion Type: Other (No delusions) Suicidal: Ideation (no SI) Homicidal: Ideation (no HI) Insight/Judgment Poor Remarks No motoric abnormalities noted Labs Date/Time Source Procedure Growth Status 02/02/17 14:54 Stool Stool Stool Occult Blood (LORI) - Final HEMOCCULT POSITIVE Complete Labs reviewed Vitals/IOs Vital Signs Date Time Temp Pulse Resp B/P (MAP) Pulse Ox O2 Delivery O2 Flow Rate FiO2 02/04/17 05:50 98.3 76 18 113/63 (80) 95 Assessment & Plan Problem List: (1) Bipolar affective, mixed, sev w/ psych ICD Codes: F31.64 - Bipolar disorder, current episode mixed, severe, with psychotic features (2) History of traumatic brain injury ICD Codes: Z87.820 - Personal history of traumatic brain injury Assessment & Plan Patient seems to be doing well from a psychiatric standpoint. Continue current psychotropics as ordered. GI fashion consultant input noted and appreciated. I will check an H&H as well as LFTs tomorrow morning as recommended. Continue to monitor on the inpatient unit. Continue other medications and care as ordered. Justification for Cont. Inpt. High risk for decompensation in less restrictive environment. Discharge Planning Hopeful for return to facility once medically cleared. Recruiting Internship from facility is supposed to come out and evaluate the patient today per counselor. Request HC Surrog/Guard Advoc?: Yes Karl Winston MD Feb 04, 2017 11:17
[2017-02-04 17:58] VITALS: BP 116/58; PULSE 73; RESP 18; TEMP 98.7; O2SAT 99
[2017-02-05] MEDS: PANTOPRAZOLE SOD 40 MG DELAYED RELEASE TAB PO SCH ×2 (07:57→20:26)
[2017-02-05] MEDS: PRAVASTATIN SOD 40 MG TAB PO SCH (07:58)
[2017-02-05] MEDS: OXcarbazepine 300 MG TAB PO SCH ×2 (07:58→20:26)
[2017-02-05] MEDS: lamoTRIgine 25 MG TAB PO SCH ×2 (07:58→20:26)
[2017-02-05] MEDS: OLANZapine ODT 10 MG TAB PO SCH ×3 (07:59→20:27)
[2017-02-05] MEDS: ENOXAPARIN SODIUM 80 MG/0.8 ML SYRINGE SQ SCH ×2 (08:03→20:27)
[2017-02-05 09:07] LABS: HEMATOCRIT 33.3 % (39.0-51.0); REVIEW FLAG FINAL
[2017-02-05 09:33] LABS: INDIRECT BILIRUBIN 0.2 MG/DL (0.0-0.8); TOTAL BILIRUBIN ADULT 0.3 MG/DL (0.2-1.0)
--- NOTE | 2017-02-05 11:28 | HHI.PYPN ---
Subjective Remarks Pt seen and discussed with staff. He has been compliant and cooperative with medication. Mood has been calm and pleasant. He is looking forward to visit from mother. He requires assistance with hygiene. No medication side effects. Objective Alert: Yes [place]: Person Mood: Calm Affect: Appropriate, Flat Memory Intact: Comment (no gross deficits) Hallucinations: Other (no AVH) Delusions: No Delusion Type: Other (No delusions) Suicidal: Ideation (no SI) Homicidal: Ideation (no HI) Insight/Judgment poor Labs Test 02/05/17 08:45 Hemoglobin 11.1 GM/DL Hematocrit 33.3 % Total Bilirubin 0.3 MG/DL Direct Bilirubin 0.1 MG/DL Indirect Bilirubin 0.2 MG/DL Aspartate Amino Transf (AST/SGOT) 35 U/L Alanine Aminotransferase (ALT/SGPT) 30 U/L Alkaline Phosphatase 137 U/L Total Protein 6.2 GM/DL Albumin 3.0 GM/DL Date/Time Source Procedure Growth Status 02/02/17 14:54 Stool Stool Stool Occult Blood (LORI) - Final HEMOCCULT POSITIVE Complete Vitals/IOs Vital Signs Date Time Temp Pulse Resp B/P (MAP) Pulse Ox O2 Delivery O2 Flow Rate FiO2 02/04/17 17:58 98.7 73 18 116/58 (77) 99 Assessment & Plan Problem List: (1) Bipolar affective, mixed, sev w/ psych ICD Codes: F31.64 - Bipolar disorder, current episode mixed, severe, with psychotic features (2) History of traumatic brain injury ICD Codes: Z87.820 - Personal history of traumatic brain injury Assessment & Plan Pt improving. Continue current tx plan. Estimated LOS: days Justification for Cont. Inpt. risk of decompensation Request HC Surrog/Guard Advoc?: Yes Mahnaz Tran MD Feb 05, 2017 11:28
[2017-02-05 18:00] VITALS: BP 124/67; PULSE 78; RESP 18; TEMP 97.7; O2SAT 97
[2017-02-06 05:49] VITALS: BP 114/59; PULSE 72; RESP 17; TEMP 97.5; O2SAT 95
[2017-02-06] MEDS: OXcarbazepine 300 MG TAB PO SCH ×2 (08:02→21:24)
[2017-02-06] MEDS: PRAVASTATIN SOD 40 MG TAB PO SCH (08:02)
[2017-02-06] MEDS: PANTOPRAZOLE SOD 40 MG DELAYED RELEASE TAB PO SCH ×2 (08:02→21:24)
[2017-02-06] MEDS: lamoTRIgine 25 MG TAB PO SCH ×2 (08:02→21:24)
[2017-02-06] MEDS: OLANZapine ODT 10 MG TAB PO SCH ×3 (08:03→21:26)
[2017-02-06] MEDS: ENOXAPARIN SODIUM 80 MG/0.8 ML SYRINGE SQ SCH ×2 (08:04→21:00)
--- NOTE | 2017-02-06 11:57 | HHI.GIFU ---
Subjective Remarks Followup for anemia and Hemoccult positive stools. No active bleeding noted. No new complaints. (Kelli Nye) Objective Vitals I&O Vital Signs Date Time Temp Pulse Resp B/P (MAP) Pulse Ox O2 Delivery O2 Flow Rate FiO2 02/06/17 05:49 97.5 72 17 114/59 (77) 95 02/05/17 18:00 97.7 78 18 124/67 (86) 97 Laboratory Date/Time Source Procedure Growth Status 02/02/17 14:54 Stool Stool Stool Occult Blood (LORI) - Final HEMOCCULT POSITIVE Complete Imaging Last Impressions Lower Extremity Ultrasound 01/11/17 0000 Signed Impressions: Service Date/Time: Wednesday, January 11, 2017 10:43 - CONCLUSION: Nonocclusive thrombus right common femoral vein extending to the superficial femoral vein and popliteal vein Jaspreet Fields MD Physical Exam HEENT: Normocephalic; atraumatic; no jaundice. CHEST: CTA CARDIAC: RRR ABDOMEN: Soft, nondistended, nontender; no hepatosplenomegaly; bowel sounds are present EXTREMITIES: No clubbing, cyanosis, or edema. SKIN: Normal; no rash; no jaundice. 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 Pt has RLE DVT and was started on Eliquis. He denies any hx of PUD/GIB. He denies any GI symptoms. H/H has gradually been trending down during his hospitalization. Hemoccult (+) stool. Never had egd/colonoscopy. No family hx of esophageal, gastric, or colorectal cancer. - Mild elevation LFTs. Hepatitis profile. Consider further workup if worsening LFTs - RLE DVT. Started on Xarelto per attending (on hold for procedure) - Bipolar d/o, per psych. 02/06/17: HH 11.1/33.3. LFTs normal (02/05). Hepatitis profile pending. PLAN: - EGD/Colonoscopy Tuesday - Clear liquids today - NPO after MN tonight - Golytely prep today - Hold Xarelto. - Lovenox 70mg q12h - Hold Lovenox 0001 - Await hepatitis profile - Monitor HH, LFT - Supportive care - Further recommendations to follow based on results of above Patient seen and examined by Dr. Pickard and myself and this note is written on his behalf (Kelli Nye) Physician Comments Patient seen and examined Agree with above Continue with current supportive care And monitor labs Plan for an EGD and a colonoscopy tomorrow, apparently he has not had good bowel movements less far in spite of the fact he drank all the GoLYTELY, we will give him an extra dose of magnesium citrate (Ismael Pickard MD) Kelli Nye Feb 06, 2017 11:57 Ismael Pickard MD Feb 06, 2017 20:30
--- NOTE | 2017-02-06 12:57 | HHI.PYPN ---
Subjective Remarks Pt seen and discussed with staff. He has been compliant with medications and care. Hygiene improved. No behavioral problems on unit. Objective Alert: Yes [place]: Person, Place, Date Mood: Calm Affect: Appropriate, Flat Memory Intact: Comment (no gross deficits) Hallucinations: Other (no AVH) Delusions: No Delusion Type: Other (No delusions) Suicidal: Ideation (no SI) Homicidal: Ideation (no HI) Insight/Judgment limited Labs Date/Time Source Procedure Growth Status 02/02/17 14:54 Stool Stool Stool Occult Blood (LORI) - Final HEMOCCULT POSITIVE Complete Vitals/IOs Vital Signs Date Time Temp Pulse Resp B/P (MAP) Pulse Ox O2 Delivery O2 Flow Rate FiO2 02/06/17 05:49 97.5 72 17 114/59 (77) 95 Assessment & Plan Problem List: (1) Bipolar affective, mixed, sev w/ psych ICD Codes: F31.64 - Bipolar disorder, current episode mixed, severe, with psychotic features (2) History of traumatic brain injury ICD Codes: Z87.820 - Personal history of traumatic brain injury Assessment & Plan Continue current tx plan. Estimated LOS: days Justification for Cont. Inpt. risk of decompensation Request HC Surrog/Guard Advoc?: Yes Mahnaz Tran MD Feb 06, 2017 12:57
--- NOTE | 2017-02-06 13:55 | HHI.PR ---
Subjective Remarks Follow-up for anemia. Pt seen and evaluated. He denied fatigue shortness of breath, chest pain, marlene bleeding (nose bleeds, hematuria), or black and tarry stools. Pressure pt reported continues to report "pressure in lower abdomen is less. He described it as "if I have a fart trapped in there." Pt did state he is passing gas hannah regular basis. Pt reported having had a bowel late yesterday. No other issues reported by pt. Pt acknowledged he is to undergo EGD and endoscopy tomorrow. Recent hemoglobin and hematocrit results shared with patient and their implications. No questions asked by pt. Per RN (Farhat) no acute issues noted or reported overnight or since start of shift. Objective Vitals Vital Signs Date Time Temp Pulse Resp B/P (MAP) Pulse Ox O2 Delivery O2 Flow Rate FiO2 02/06/17 05:49 97.5 72 17 114/59 (77) 95 02/05/17 18:00 97.7 78 18 124/67 (86) 97 Result Diagram: 02/05/17 0845 Objective Remarks GENERAL: Pt seen and examined in day room on psychiatric service. NAD. SKIN: Warm and dry. HEAD: Normocephalic. EYES: No scleral icterus. No injection or drainage. NECK: Supple, trachea midline. Enlarged lymph node noted base of left side of neck anterior chain. CARDIOVASCULAR: Regular rate and rhythm without murmurs, gallops, or rubs. RESPIRATORY: Breath sounds equal bilaterally. No accessory muscle use. GASTROINTESTINAL: Abdomen soft, non-tender, nondistended. MUSCULOSKELETAL: No cyanosis, or edema. Upper extremity strength good, 5/5, bilaterally. BACK: Nontender without obvious deformity. Procedures None. Medications and IVs Current Medications Medications (Trade) Dose Ordered Sig/Thaddeus Route Start Time Stop Time Status Last Admin (Tylenol) 650 mg Q4H PRN PO 01/04/17 13:45 01/30/17 05:28 (Milk Of Magnesia Liq) 30 ml DAILY PRN PO 01/04/17 13:45 (Mag-Al Plus Susp Liq) 30 ml Q6H PRN PO 01/04/17 13:45 (Pravachol) 40 mg DAILY PO 01/05/17 09:00 02/06/17 08:02 (Ativan) 1 mg Q6H PRN PO 01/05/17 12:00 Future hold (Ativan Inj) 1 mg Q6H PRN IM 01/05/17 12:00 Future hold (Cogentin) 1 mg Q12HR PRN PO 01/05/17 12:00 (Cogentin Inj) 1 mg Q12HR PRN IM 01/05/17 12:00 (Benadryl) 50 mg HS PRN PO 01/05/17 12:00 Future Hold (Haldol) 2 mg Q6H PRN PO 01/05/17 12:00 Future hold (Haldol Inj) 2 mg Q6H PRN IM 01/05/17 12:00 Future hold 01/14/17 15:25 (Xarelto) 20 mg DAILY PO 02/02/17 09:00 Future Hold 02/04/17 09:01 (ZyPREXA ZYDIS ODT) 10 mg DAILY@0900,1300,2100 PO 01/21/17 21:00 02/06/17 12:00 (ZyPREXA INJ) 10 mg DAILY@0900,1300,2100 PRN IM 01/21/17 20:59 (Trileptal) 600 mg BID PO 01/25/17 21:00 02/06/17 08:02 (LaMICtal) 50 mg BID PO 01/31/17 21:00 02/06/17 08:02 (Protonix) 40 mg Q12HR PO 02/01/17 21:00 02/06/17 08:02 (Lovenox Inj) 70 mg Q12H SQ 02/05/17 09:00 Future Hold (Colyte Liq) 4,000 ml ONCE ONCE PO 02/06/17 16:00 02/06/17 16:01 Urinary Catheter: No A/P Problem List: (1) Normocytic anemia ICD Code: D64.9 - Anemia, unspecified Status: Acute Assessment and Plan The patient is a 61-year-old male with a past medical history of seizures and DVT in the right leg who is presenting to the psychiatry unit from [facility] for reasons that are unknown to him. Normocytic anemia: Hgb improved from 10.8 to 11.1. GI to perform EGD and endoscopy on Tuesday. Pt NPO after midnight. Normocytic anemia -H&H -reticulocyte count. -Hemoccult study ordered -Iron low (58) -Ferritin and TIBC WNL -Protoniox q 12 hrs -Consult GI should he evidence continued decrease or positive Hemoccult study. Bipolar disorder -As per psychiatric team. Case discussed with pt,RN, and Dr. Meol. Discharge Planning Ongoing. Cayden Reynaga Jr. ALANA Feb 06, 2017 13:55
[2017-02-06] MEDS ORDERED: PEG (High)/E-LYTE SOLN 4000 ML BTL PO ONE (16:00)
[2017-02-06 17:55] VITALS: BP 119/59; PULSE 65; RESP 17; TEMP 97.5; O2SAT 96
[2017-02-06] MEDS ORDERED: MAGNESIUM CITRATE SOLN 300 ML BTL PO ONE (20:30)
[2017-02-07 06:01] VITALS: BP 135/76; PULSE 75; RESP 17; TEMP 97.1; O2SAT 97
[2017-02-07] MEDS: lamoTRIgine 25 MG TAB PO SCH ×2 (09:00→20:41)
[2017-02-07] MEDS: OXcarbazepine 300 MG TAB PO SCH ×2 (09:00→20:40)
[2017-02-07] MEDS: PRAVASTATIN SOD 40 MG TAB PO SCH (09:00)
[2017-02-07] MEDS: OLANZapine ODT 10 MG TAB PO SCH ×3 (09:00→20:42)
[2017-02-07] MEDS: PANTOPRAZOLE SOD 40 MG DELAYED RELEASE TAB PO SCH ×2 (09:00→20:40)
--- NOTE | 2017-02-07 09:30 | HHI.PYPN ---
Subjective Remarks Patient seen and examined following GI procedure. Chart reviewed. I note that lesions were found in patient's esophagus and colon concerning for malignancy and that the criminal psychologist has consulted general surgery and medical oncology. Case discussed with nursing staff. On my examination today, the patient is calm and cooperative. He is feeling well following his procedure and offers no physical complaints. He is hopeful for return to facility soon. Denies SI/HI/AVH. No side effects from medications. No physical complaints. Review of Systems Except as stated in HPI: all other systems reviewed are Neg Objective Alert: Yes [place]: Person, Place, Date Mood: Calm Affect: Appropriate Memory Intact: Comment (Not formally assessed) Hallucinations: Other (Denies AVH) Delusions: No Delusion Type: Other (No delusions) Suicidal: Ideation (Denies SI) Homicidal: Ideation (Denies HI) Insight/Judgment Poor Remarks No motor abnormalities noted. Thought process fairly linear. Grooming and hygiene fair. Labs Date/Time Source Procedure Growth Status 02/02/17 14:54 Stool Stool Stool Occult Blood (LORI) - Final HEMOCCULT POSITIVE Complete Labs reviewed. Vitals/IOs Vital Signs Date Time Temp Pulse Resp B/P (MAP) Pulse Ox O2 Delivery O2 Flow Rate FiO2 02/07/17 06:01 97.1 75 17 135/76 (95) 97 Assessment & Plan Problem List: (1) Bipolar disorder, in partial remission, most recent episode mixed ICD Codes: F31.77 - Bipolar disorder, in partial remission, most recent episode mixed (2) History of traumatic brain injury ICD Codes: Z87.820 - Personal history of traumatic brain injury Assessment & Plan Patient seems to be doing well from a psychiatric standpoint. Follow up recommendations from medical oncology and gen surg. Pt to be moved to med psych for further medical workup. Continue to monitor on the inpatient unit. Continue other medications and care as ordered. Justification for Cont. Inpt. Complicating conditions. High risk for decompensation and less restrictive environment. Discharge Planning Back to facility once medically cleared. Request HC Surrog/Guard Advoc?: Yes Karl Winston MD Feb 07, 2017 09:30
[2017-02-07] MEDS ORDERED: LACTATED RINGER'S 1000 ML INJ 1,000 ML IV ONE (09:35)
--- NOTE | 2017-02-07 09:55 | GIPROC ---
[facility] [address] [facility]. [facility], [address] EGD PROCEDURE REPORT EXAM DATE: 02/07/2017 PATIENT NAME: Coy Dooley MR #: [id number] BIRTHDATE: 1955 ATTENDING: Elvira Ybarra MD ORDER #: [id number] GENERAL MACHINE OPERATOR: Victor Hugo Wharton and Rosa Landon STATUS: inpatient INDICATIONS: The patient is a 61 yr old male here for an EGD due to anemia PROCEDURE PERFORMED: EGD w/ biopsy MEDICATIONS: None and Per Anesthesia. TOPICAL ANESTHETIC: none CONSENT: The patient understands the risks and benefits of the procedure and understands that these risks include, but are not limited to: sedation, allergic reaction, infection, perforation and/or bleeding. Alternative means of evaluation and treatment include, among others: physical exam, x-rays, and/or surgical intervention. The patient elects to proceed with this endoscopic procedure. medical equipment was checked for proper function. Hand hygiene and appropriate measures for infection prevention was taken. After the risks, benefits and alternatives of the procedure were thoroughly explained, Informed consent was verified, confirmed and timeout was successfully executed by the treatment team. The patient was anesthetized with topical anesthesia and the [id number] (Pedi C) endoscope was introduced through the mouth and advanced to the second portion of the duodenum. Retroflexed views revealed no abnormalities The gastroscope was then slowly withdrawn and removed. Large mass in the midesophagus ulcerated consistent with possible malignancy biopsy was done. Mild gastritis and duodenitis biopsy from the antrum to rule out H. pylori. ADVERSE EVENTS: There were no complications. IMPRESSIONS: 1. Large mass in the midesophagus ulcerated consistent with possible malignancy biopsy was done 2. Mild gastritis and duodenitis biopsy from the antrum to rule out H. pylori 3. Retroflexed views revealed no abnormalities RECOMMENDATIONS: CT of the abdomen and pelvis and chest with IV and by mouth contrast Oncology consult Clear liquid PATIENT CONDITION: stable DISPOSITION: Inpatient REPEAT EXAM: Return as needed for EGD Elvira Ybarra MD eSigned: Elvira Ybarra MD 02/07/2017 9:54 AM cc: PATIENT NAME: Coy Dooley MR#: [id number]
--- NOTE | 2017-02-07 10:00 | GIPROC ---
[facility] [address] [facility]. [facility], [address] COLONOSCOPY PROCEDURE REPORT EXAM DATE: 02/07/2017 PATIENT NAME: Coy Dooley MR #: [id number] BIRTHDATE: 1955 ENDOSCOPIST: Elvira Ybarra MD ORDER #: [id number] PLACING JUDGE: Victor Hugo Wharton and Rosa Landon STATUS: inpatient INDICATIONS: The patient is a 61 yr old male here for a colonoscopy due to anemia, non-specific and anal bleeding PROCEDURE PERFORMED: Colonoscopy with hot biopsy/bipolar Colonoscopy with polypectomy MEDICATIONS: None and Per Anesthesia. PREP QUALITY: suboptimal ESTIMATED BLOOD LOSS: None CONSENT: The patient understands the risks and benefits of the procedure and understands that these risks include, but are not limited to: sedation, allergic reaction, infection, perforation and/or bleeding. Alternative means of evaluation and treatment include, among others: physical exam, x-rays, and/or surgical intervention. The patient elects to proceed with this endoscopic procedure. medical equipment was checked for proper function. Hand hygiene and appropriate measures for infection prevention was taken. After the risks, benefits and alternatives of the procedure were thoroughly explained, Informed consent was verified, confirmed and timeout was successfully executed by the treatment team. A digital exam revealed no abnormalities of the rectum The Pentax [id number] endoscope was introduced through the anus and advanced to the cecum, which was identified by both the appendix and ileocecal valve. The instrument was then slowly withdrawn as the colon was fully examined. COLON FINDINGS: Large mass in the cecum consistent with cancer biopsy was done. One polyp in transverse colon removed by a snare. Suboptimal prep with stool throughout the colon. Retroflexed views revealed no abnormalities The scope was then completely withdrawn from the patient and the procedure terminated. ADVERSE EVENTS: There were no complications. IMPRESSIONS: 1. Large mass in the cecum consistent with cancer biopsy was done 2. One polyp in transverse colon removed by a snare 3. Suboptimal prep with stool throughout the colon 4. Retroflexed views revealed no abnormalities 5. Revealed no abnormalities of the rectum RECOMMENDATIONS: CT of the abdomen and pelvis and chest with IV and by mouth contrast Oncology consult Surgical consult Clear liquid Await biopsy results Colonoscopy intraoperatively to rule out other lesions RECALL: Return 1 year Colonoscopy Also intraoperatively Elvira Ybarra MD eSigned: Elvira Ybarra MD 02/07/2017 10:00 AM cc: PATIENT NAME: MiahCoy MR#: [id number]
--- NOTE | 2017-02-07 10:02 | HHI.GIFU ---
Subjective Remarks Patient laying in bed comfortably, no new problem or complaining. Took the prep Objective Vitals I&O Vital Signs Date Time Temp Pulse Resp B/P (MAP) Pulse Ox O2 Delivery O2 Flow Rate FiO2 02/07/17 06:01 97.1 75 17 135/76 (95) 97 02/06/17 17:55 97.5 65 17 119/59 (79) 96 Laboratory Date/Time Source Procedure Growth Status 02/02/17 14:54 Stool Stool Stool Occult Blood (LORI) - Final HEMOCCULT POSITIVE Complete Physical Exam HEENT: Normocephalic; atraumatic; no jaundice. CHEST: CTA CARDIAC: RRR ABDOMEN: Soft, nondistended, nontender; no hepatosplenomegaly; bowel sounds are present EXTREMITIES: No clubbing, cyanosis, or edema. SKIN: Normal; no rash; no jaundice. TALENT MANAGER: No focal deficits; alert and oriented x 3 Assessment and Plan Plan ASSESSMENT: - Anemia with Hemoccult positive stool. Pt has RLE DVT and was started on Eliquis. He denies any hx of PUD/GIB. He denies any GI symptoms. H/H has gradually been trending down during his hospitalization. Hemoccult (+) stool. Never had egd/colonoscopy. No family hx of esophageal, gastric, or colorectal cancer. - Mild elevation LFTs. Hepatitis profile. Consider further workup if worsening LFTs - RLE DVT. Started on Xarelto per attending (on hold for procedure) - Bipolar d/o, per psych. 02/06/17: HH 11.1/33.3. LFTs normal (02/05). Hepatitis profile pending. 02/07/2017 hemoglobin stable, no active bleed, upper endoscopy show possible mass in the esophagus consistent with esophageal cancers, mild gastritis and duodenitis, colonoscopy showed mass in the cecum consistent with colon cancer, colon polyp in the transverse colon removed by a snare. PLAN: - CT of the abdomen and pelvis and chest with IV and by mouth contrast Oncology consult Clear liquid Monitor H&H with packed RBC if needed Await biopsy results Colonoscopy intraoperatively to rule out other lesions - Lovenox 70mg q12h - Await hepatitis profile - Monitor HH, LFT - Supportive care CEA Elvira Ybarra MD Feb 07, 2017 10:02
[2017-02-07] MEDS ORDERED: ePHEDrine/NS 25 MG/5 ML SYR IV ONE (10:23)
[2017-02-07] MEDS ORDERED: PROPOFOL 200 MG/20 ML AMP IV ONE (10:23)
[2017-02-07] MEDS ORDERED: LIDOCAINE HCL 1% PF 5 ML AMPULE OTHER ONE (10:23)
[2017-02-07 16:51] VITALS: BP 122/73; PULSE 66; RESP 18; TEMP 97.9
[2017-02-07] MEDS ORDERED: DIATRIZOATE MEGLUM/DIATRIZOATE SOD 9 ML CUP PO ONE (19:00)
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
[2017-02-08 05:01] VITALS: BP 114/56; PULSE 70; RESP 17; TEMP 97.5; O2SAT 95
[2017-02-08] MEDS ORDERED: DIATRIZOATE MEGLUM/DIATRIZOATE SOD 9 ML CUP PO ONE (07:00)
[2017-02-08] MEDS: PANTOPRAZOLE SOD 40 MG DELAYED RELEASE TAB PO SCH (09:34)
[2017-02-08] MEDS: lamoTRIgine 25 MG TAB PO SCH (09:34)
[2017-02-08] MEDS: PRAVASTATIN SOD 40 MG TAB PO SCH (09:35)
[2017-02-08] MEDS: OXcarbazepine 300 MG TAB PO SCH (09:35)
[2017-02-08] MEDS: OLANZapine ODT 10 MG TAB PO SCH ×2 (09:37→13:00)
--- NOTE | 2017-02-08 09:49 | HHI.PR ---
Subjective Remarks Follow-up for anemia, possible esophageal and colon malignancies. Patient is currently doing well. Denies any chest pain, shortness of breath, fever or chills. Objective Vitals Vital Signs Date Time Temp Pulse Resp B/P (MAP) Pulse Ox O2 Delivery O2 Flow Rate FiO2 02/08/17 05:01 97.5 70 17 114/56 (75) 95 02/07/17 16:51 97.9 66 18 122/73 (89) 02/07/17 10:15 97.3 66 18 95/59 (71) 97 02/07/17 10:04 97.2 67 18 95/57 (70) 97 I/O 02/07/17 02/07/17 02/07/17 02/08/17 02/08/17 02/08/17 07:00 15:00 23:00 07:00 15:00 23:00 Intake Total 500 ml 720 ml Balance 500 ml 720 ml Intake Oral 720 ml Other 500 ml # Voids 1 Result Diagram: 02/05/17 0845 Imaging Last Impressions Chest CT 02/08/17 0000 Signed Impressions: Service Date/Time: Wednesday, February 08, 2017 09:59 - CONCLUSION: 1. Metastatic disease to the liver identified with confluent hepatic masses in the left lobe of the 15.3 cm. 2. Regional lymphadenopathy in the periesophageal and cardiophrenic region, and distal esophageal soft tissue prominence presumably representing the area of patient's known esophageal mass. 3. The atelectatic changes are suspected at the lung bases greatest at the right lung base with triangular shaped soft tissue density noted with adjacent swirling of the bronchovascular markings. Small bilateral pleural effusions. 4. Emphysema. Ernie Hernandez MD Abdomen/Pelvis CT 02/08/17 0000 Signed Impressions: Service Date/Time: Wednesday, February 08, 2017 09:59 - CONCLUSION: 1. Confluent hepatic masses in the left lobe suspect for metastatic disease to the liver with upper abdominal adenopathy and this is concerning for metastatic disease until proven otherwise. 2. There is a colocolonic intussusception at the proximal transverse colon extending over 9.5 cm, felt to most likely be secondary to a colonic mass of the mid transverse colon which is not well evaluated on this study but suspected on axial image 48. Regional lymphadenopathy in the pericolonic fat is concerning for metastatic disease. 3. Occlusion of the right common, external and internal iliac arteries. Ernie Hernandez MD Lower Extremity Ultrasound 01/11/17 0000 Signed Impressions: Service Date/Time: Wednesday, January 11, 2017 10:43 - CONCLUSION: Nonocclusive thrombus right common femoral vein extending to the superficial femoral vein and popliteal vein Jaspreet Fields MD Objective Remarks GENERAL: Alert, NAD. SKIN: Warm and dry. HEAD: Normocephalic. EYES: No scleral icterus. No injection or drainage. NECK: Supple, trachea midline. No JVD or lymphadenopathy. CARDIOVASCULAR: Regular rate and rhythm without murmurs, gallops, or rubs. RESPIRATORY: Breath sounds equal bilaterally. No accessory muscle use. GASTROINTESTINAL: Abdomen soft, non-tender, nondistended. MUSCULOSKELETAL: No cyanosis, or edema. BACK: Nontender without obvious deformity. No CVA tenderness. Procedures None. Medications and IVs Current Medications Medications (Trade) Dose Ordered Sig/Thaddeus Route Start Time Stop Time Status Last Admin (Tylenol) 650 mg Q4H PRN PO 01/04/17 13:45 01/30/17 05:28 (Milk Of Magnesia Liq) 30 ml DAILY PRN PO 01/04/17 13:45 (Mag-Al Plus Susp Liq) 30 ml Q6H PRN PO 01/04/17 13:45 (Pravachol) 40 mg DAILY PO 01/05/17 09:00 02/08/17 09:35 (Ativan) 1 mg Q6H PRN PO 01/05/17 12:00 Future hold (Ativan Inj) 1 mg Q6H PRN IM 01/05/17 12:00 Future hold (Cogentin) 1 mg Q12HR PRN PO 01/05/17 12:00 (Cogentin Inj) 1 mg Q12HR PRN IM 01/05/17 12:00 (Benadryl) 50 mg HS PRN PO 01/05/17 12:00 Future Hold (Haldol) 2 mg Q6H PRN PO 01/05/17 12:00 Future hold (Haldol Inj) 2 mg Q6H PRN IM 01/05/17 12:00 Future hold 01/14/17 15:25 (Xarelto) 20 mg DAILY PO 02/02/17 09:00 Future Hold 02/04/17 09:01 (ZyPREXA ZYDIS ODT) 10 mg DAILY@0900,1300,2100 PO 01/21/17 21:00 02/08/17 09:37 (ZyPREXA INJ) 10 mg DAILY@0900,1300,2100 PRN IM 01/21/17 20:59 (Trileptal) 600 mg BID PO 01/25/17 21:00 02/08/17 09:35 (LaMICtal) 50 mg BID PO 01/31/17 21:00 02/08/17 09:34 (Protonix) 40 mg Q12HR PO 02/01/17 21:00 02/08/17 09:34 (Lovenox Inj) 70 mg Q12H SQ 02/05/17 09:00 Future Hold A/P Problem List: (1) Normocytic anemia ICD Code: D64.9 - Anemia, unspecified Status: Acute (2) Colonic mass ICD Code: K63.9 - Disease of intestine, unspecified (3) Esophageal mass ICD Code: K22.9 - Disease of esophagus, unspecified Assessment and Plan Mr. Dooley is a 61-year-old male with a past medical history of seizures and DVT in the right leg who was admitted to the psychiatry service on 01/03/2017. Due to his suspected GI blood loss anemia, patient underwent EGD, Colonoscopy and showed possible malignancies in esophagus as well as colon. - Probable metastatic cancer - undetermined primary. - Esophageal mass - Colon mass - CT chest, Abd/pelvis shows probable metastatic process. - Oncology is following, surgery consult pending. - GI blood loss anemia, acute - Likely due to malignancy. - Transfuse if Hgb < 7.0. - DVT of the right leg - Patient was on Xarelto. - Patient may need anti-coagulation. However, given his GI bleed anemia, we may have to hold off using full anticoagulation. - Would appreciate input from heme/onc. Patient can be discharged to the med/surg floor today. Discussed with Oncology, Psychiatry. Kamala Melo DO Feb 08, 2017 09:49
[2017-02-08] MEDS ORDERED: OLANZ10 PO (09:53)
[2017-02-08] MEDS ORDERED: LAMO25 PO (09:53)
[2017-02-08] MEDS ORDERED: PANT40TA3 PO (09:53)
[2017-02-08] MEDS ORDERED: OXCA300T PO (09:53)
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
[2017-02-08] MEDS ORDERED: IOHEXOL 350 MG/ML 10 ML VIAL (for RAD DIAG) IVCONTRAST ONE (10:18)
--- NOTE | 2017-02-08 11:08 | RADRPT ---
EXAM DATE/TIME: 02/08/2017 09:59 [facility] COMPARISON: CT ABDOMEN & PELVIS W CONTRAST, February 08, 2017, 9:59. INDICATIONS : Esophageal and colon masses. Evaluate for metastatic disease. IV CONTRAST: 95 cc Omnipaque 350 (iohexol) IV ; Cumulative dose for multiple exams. RADIATION DOSE: 9.55 CTDIvol (mGy) ; Combined studies - Thorax/Abdomen/Pelvis MEDICAL HISTORY : Esophageal and colon mass SURGICAL HISTORY : None. ENCOUNTER: Initial ACUITY: 1 day PAIN SCALE: 0/10 LOCATION: chest TECHNIQUE: Volumetric scanning of the chest was performed. Using automated exposure control and adjustment of t he mA and/or kV according to patient size, radiation dose was kept as low as reasonably achievable to obtain optimal diagnostic quality images. DICOM format image data is available electronically for review and comparison. Follow-up recommendations for detected pulmonary nodules are based at a minimum on nodule size and pa tient risk factors according to Fleischner Society Guidelines. FINDINGS: There are paraseptal emphysematous changes in the upper lobes. There is atelectasis and scarring at t he bases with probable rounded atelectasis at the right lung base. In the mediastinum, a right paratr acheal lymph node is present measuring 8.5 mm in short axis dimension. There is a large mass seen wit hin the liver measuring 15.3 x 8 point centimeters in transverse and AP dimension, likely multiple co nfluent hepatic masses in the left lobe. The adrenal glands are unremarkable. A paraesophageal lymph node is noted measuring 1.3 cm, and a cardiophrenic lymph node measuring 9.1 mm identified. There is soft tissue prominence in the distal third of the esophagus presumably representing the patient's eso phageal mass. The osseous structures are intact. Small bilateral effusions. CONCLUSION: 1. Metastatic disease to the liver identified with confluent hepatic masses in the left lobe of the 1 5.3 cm. 2. Regional lymphadenopathy in the periesophageal and cardiophrenic region, and distal esophageal sof t tissue prominence presumably representing the area of patient's known esophageal mass. 3. The atelectatic changes are suspected at the lung bases greatest at the right lung base with trian gular shaped soft tissue density noted with adjacent swirling of the bronchovascular markings. Small bilateral pleural effusions. 4. Emphysema. Ernie Hernandez MD on February 08, 2017 at 11:03 Board Certified Radiologist. This report was verified electronically.
--- NOTE | 2017-02-08 11:39 | RADRPT ---
EXAM DATE/TIME: 02/08/2017 09:59 [facility] COMPARISON: CT THORAX W CONTRAST, February 08, 2017, 9:59. INDICATIONS : Esophageal and colon masses. Evaluate for metastatic disease. IV CONTRAST: 95 cc Omnipaque 350 (iohexol) IV ; Cumulative dose for multiple exams. ORAL CONTRAST: No oral contrast ingested. RADIATION DOSE: 9.55 CTDIvol (mGy) ; Combined studies - Thorax/Abdomen/Pelvis MEDICAL HISTORY : Non-responsive. Esophageal and colon masses SURGICAL HISTORY : None. ENCOUNTER: Initial ACUITY: 1 day PAIN SCALE: 0/10 LOCATION: abdomen TECHNIQUE: Volumetric scanning of the abdomen and pelvis was performed. Using automated exposure control and ad justment of the mA and/or kV according to patient size, radiation dose was kept as low as reasonably achievable to obtain optimal diagnostic quality images. DICOM format image data is available electro nically for review and comparison. FINDINGS: Small bilateral pleural effusions. Probable rounded atelectasis at the right lung base. Distal esopha kendra with focal soft tissue prominence seen on axial image 3 presumably represents the patient's esoph ageal mass. In the left hepatic lobe there is a large inhomogeneous area of predominantly decreased a ttenuation extending 15.3 x 8.6 cm in transverse and AP dimension on image 19. The appearance is felt to represent a confluence of hepatic masses felt to represent metastatic disease to the liver. The s pleen, pancreas, adrenal glands, kidneys are unremarkable. There is a lymph node the paraesophageal f at measuring 1.2 cm on image 13 and a cardiophrenic lymph node is 8.2 mm in short axis dimension imag e 13. There are smaller gastrohepatic lymph nodes identified which are nonspecific. IVC filter is not ed. There is occlusion of the right common iliac artery at the bifurcation as well as the external il iac artery. There is reconstitution of the right common femoral artery on axial image 81. Urinary kleber dder unremarkable. Prostatic calcifications are noted. The examination demonstrates at the level of t he proximal transverse colon an intussusception with focal dilatation of the transverse colon. This e xtends over a 9.5 cm segment on image 38. Presumably this is related to the patient's known colonic m ass. There is pericolonic adenopathy seen at this level on image 37 with several subcentimeter short axis lymph nodes identified and mild induration of the pericolonic fat. Gallbladder unremarkable. Pablo endix normal. The patient's known colonic mass is not well visualized presumably at the level of the intussusception. The osseous structures demonstrate degenerative changes of the spine and mild dextro scoliosis. Remote compression fractures are identified at L4, L2 and L1. There is a remote left infer ior pubic ramus fracture. CONCLUSION: 1. Confluent hepatic masses in the left lobe suspect for metastatic disease to the liver with upper a bdominal adenopathy and this is concerning for metastatic disease until proven otherwise. 2. There is a colocolonic intussusception at the proximal transverse colon extending over 9.5 cm, fel t to most likely be secondary to a colonic mass of the mid transverse colon which is not well evaluat ed on this study but suspected on axial image 48. Regional lymphadenopathy in the pericolonic fat is concerning for metastatic disease. 3. Occlusion of the right common, external and internal iliac arteries. Ernie Hernandez MD on February 08, 2017 at 11:33 Board Certified Radiologist. This report was verified electronically.
--- NOTE | 2017-02-08 12:51 | PD.TTN ---
Patient Problems 1. Discharge planning 2. Medication compliance 3. Knowledge deficit 4. Lack of coping skills Progress Toward Goals Provider Present: Dr. Lucy Winston Provider Input: Dr. Winston treatment team met to discuss patient's treatment plan, discharge and medication. Patient is medication complaint. Patient presents at his baseline. Patient can be discharged tomorrow if he remains stablized. 02/01- Pt Lamictal will be increased as well as possible D/C of Keppra as a measure of seeing if this has any impact on ongoing behavior issues. Medication regiment will continue to be evaluated to assist with stabilization. He has been referred to [facility]. Nurse(s) Present: Zulma Nurse(s) Input: Patient's nurse reports patient is medication compliant, poorly motivated. Goals for patient is to continue to medication compliant, not violent, not to have auditory and visual hallucinations. Patient is focused and concern with his recent medical diagnosis Psychiatric Counselors Present: BLADIMIR Rod Psych Therapist Input: Patient is withdrawn, easily agitated, anxious, affect blunted. Patient is medication complaint. Patient has been eating and sleeping ok. Patient continues to present paranoid. Patient is alert to person, place, and time but has poor insight into his situation. 02/01- Pt continues to appear easily agitated, labile, uncooperative, guarded, with poor insight and limited use of coping skills to regulate emotions. Pt presents with limited understanding of his mental illness and general resistance to treatmen as a result of this. Pt remains paranoid of providers in this facility and at his [facility]. He appears mainly withdrawn to self. Group Spec/RT/OT/MENDOZA Present: Bacilio Mays OT, KELLY Flores Group Spec/RT/OT/MENDOZA Input: Patient isoloates to self. Discharged focused. 02/01- Pt does not attend groups and appears to isolate to himself. Discharge Plan [facility], Other Return to [facility] but has also been referred for [facility] if he cannot stabilize. Documentation Scribe: BLADIMIR Rod Sandra LMHC Feb 08, 2017 12:51
--- NOTE | 2017-02-08 13:20 | HHI.GIFU ---
Subjective Remarks Resting in bed. No complaints. Mild headaches. States he is tolerating the clear liquids, but is hungry and would like some pasta or some other regular food. Liquid bowel movements. Objective Vitals I&O Vital Signs Date Time Temp Pulse Resp B/P (MAP) Pulse Ox O2 Delivery O2 Flow Rate FiO2 02/08/17 05:01 97.5 70 17 114/56 (75) 95 02/07/17 16:51 97.9 66 18 122/73 (89) I/O 02/07/17 02/07/17 02/07/17 02/08/17 02/08/17 02/08/17 07:00 15:00 23:00 07:00 15:00 23:00 Intake Total 500 ml 720 ml Balance 500 ml 720 ml Intake Oral 720 ml Other 500 ml # Voids 1 Laboratory Laboratory Tests Test 02/07/17 18:54 Carcinoembryonic Antigen 427.4 Date/Time Source Procedure Growth Status 02/02/17 14:54 Stool Stool Stool Occult Blood (LORI) - Final HEMOCCULT POSITIVE Complete Imaging Last Impressions Chest CT 02/08/17 0000 Signed Impressions: Service Date/Time: Wednesday, February 08, 2017 09:59 - CONCLUSION: 1. Metastatic disease to the liver identified with confluent hepatic masses in the left lobe of the 15.3 cm. 2. Regional lymphadenopathy in the periesophageal and cardiophrenic region, and distal esophageal soft tissue prominence presumably representing the area of patient's known esophageal mass. 3. The atelectatic changes are suspected at the lung bases greatest at the right lung base with triangular shaped soft tissue density noted with adjacent swirling of the bronchovascular markings. Small bilateral pleural effusions. 4. Emphysema. Ernie Hernandez MD Abdomen/Pelvis CT 02/08/17 0000 Signed Impressions: Service Date/Time: Wednesday, February 08, 2017 09:59 - CONCLUSION: 1. Confluent hepatic masses in the left lobe suspect for metastatic disease to the liver with upper abdominal adenopathy and this is concerning for metastatic disease until proven otherwise. 2. There is a colocolonic intussusception at the proximal transverse colon extending over 9.5 cm, felt to most likely be secondary to a colonic mass of the mid transverse colon which is not well evaluated on this study but suspected on axial image 48. Regional lymphadenopathy in the pericolonic fat is concerning for metastatic disease. 3. Occlusion of the right common, external and internal iliac arteries. Ernie Hernandez MD Lower Extremity Ultrasound 01/11/17 0000 Signed Impressions: Service Date/Time: Wednesday, January 11, 2017 10:43 - CONCLUSION: Nonocclusive thrombus right common femoral vein extending to the superficial femoral vein and popliteal vein Jaspreet Fields MD Physical Exam HEENT: Normocephalic; atraumatic; no jaundice. CHEST: CTA CARDIAC: RRR ABDOMEN: Soft, nondistended, nontender; no hepatosplenomegaly; bowel sounds are present EXTREMITIES: No clubbing, cyanosis, or edema. SKIN: Normal; no rash; no jaundice. 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 Pt has RLE DVT and was started on Eliquis. He denies any hx of PUD/GIB. He denies any GI symptoms. H/H has gradually been trending down during his hospitalization. Hemoccult (+) stool. Never had egd/colonoscopy. No family hx of esophageal, gastric, or colorectal cancer. S/P EGD/ Colonoscopy (02/07/17)----> 1. Large mass in the midesophagus ulcerated consistent with possible malignancy biopsy was done 2. Mild gastritis and duodenitis biopsy from the antrum to rule out H. pylori 3. Retroflexed views revealed no abnormalities. 1. Large mass in the cecum consistent with cancer biopsy was done 2. One polyp in transverse colon removed by a snare 3. Suboptimal prep with stool throughout the colon 4. Retroflexed views revealed no abnormalities 5. Revealed no abnormalities of the rectum. HH 11.1/33.3. - Esophageal mass, cecal mass. CT thorax/abdomen/pelvis (02/08/17)---> Metastatic disease to the liver identified with confluent hepatic masses in the left lobe of the 15.3 cm. Regional lymphadenopathy in the periesophageal and cardiophrenic region, and distal esophageal soft tissue prominence presumably representing the area of the patient's known esophageal mass, the atelectatic changes are suspected at the lung bases greatest at the right lung base with triangular shaped soft tissue density noted with adjacent swirling of the bronchovascular markings. Small bilateral pleural effusions, emphysema. Confluent hepatic masses in the left lobe suspect for metastatic disease to the liver with upper abdominal adenopathy and this is concerning for metastatic disease until proven otherwise, there is a colocolonic intussusception at the proximal transverse colon extending over 9.5 cm, felt to most likely be secondary to a colonic mass of the mid transverse colon which is not well evaluated on this study but suspected on axial image 48. Regional lymphadenopathy in the pericolonic fat is concerning for metastatic disease. Occlusion of the right common, external and internal iliac arteries. CEA 427.4. Oncology following. - Abn. imaging with ? colocolonic intussusception at the proximal transverse colon extending over 9.5 cm, felt to most likely be secondary to a colonic mass of the mid transverse colon. Abdomen is soft, nontender. Clear liquids. GS evaluation pending. - Mild elevation LFTs. Hepatitis negative. Likely related to metastatic dz. - RLE DVT. Hold xarelto - Bipolar d/o, per psych. PLAN: - Clear liquids - Await pathology - Oncology following - Monitor HH - Transfuse as necessary - Will discuss abnormal imaging with possible intussusception at the proximal transverse colon - GS evaluation pending - Supportive care - Further recommendations to follow based on results of above - PT seen and examined by Dr. Ybarra and myself and this note is written on his behalf Sandee Morgan Feb 08, 2017 13:20
--- NOTE | 2017-02-08 18:50 | MB ---
cc: TAMAR COOPER M.D., DAVID G. M.D. HEMAIDAN, AMMAR M.D. Corrected Copy: 02/21/17 DATE OF CONSULTATION 02/08/2017 REASON FOR CONSULTATION Esophageal mass and colonic mass. BRIEF HISTORY This is 61-year-old gentleman who was admitted to the psychiatric unit for apparent bipolar disorder. He also had a history of seizures. He is not a very good historian. However, he apparently was found to have anemia and his stools were checked which showed blood in the stool. GI consultation was obtained. He underwent upper endoscopy which demonstrated a large friable esophageal mass which was biopsied and a colonoscopy which showed a right-sided large fungating mass. Biopsies were obtained and neither demonstrates findings consistent with cancer. The esophageal biopsy shows reflux esophagitis type changes and the colonic mass demonstrated a villous adenoma. The patient did have a CEA and it is severely elevated greater than 400. He has had a history of DVT and inferior vena cava filter and has previously been on Coumadin. An ultrasound has demonstrated nonocclusive thrombosis of the right common femoral vein extending into the superficial vein and popliteal vein and the patient is being treated on Xarelto. mL. The patient says he gets occasional gas pains. He denies seeing blood in the stool. He has not had abdominal distension, nausea or vomiting. He says he has had previous chest tube placement in the past. He has a scar in his abdomen. He is unsure what that was from. Further evaluation demonstrated scar suspicious for open gastrostomy tube placement as well as tracheostomy tube placement. When these were noted we asked if he possibly had been involved in a motor vehicle crash or had been on a breathing machine for a prolonged period of time and he had no recollection of that. He additionally has a history of seizures. MEDICATIONS His medications include: 1. Trileptal. 2. Lamictal. 3. Pravachol. 4. Zyprexa. 5. Xarelto. 6. Protonix. FAMILY HISTORY Indicates his father did , he does not know why. He says his mother is alive. She lives up in [place] and will be here in three or four days. SOCIAL HISTORY He socially admits to being a smoker. He has had on and off alcohol use in the past. 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 He denies known primary lung or heart or liver, kidney disorders. PHYSICAL EXAMINATION GENERAL: He is a bearded gentleman who is very pleasant and cooperative with the exam. VITAL SIGNS: His temperature is 97.5, pulse 70, respiratory rate 17, blood pressure 114/56. His O2 sat is 95% on room air. HEENT: He is normocephalic, atraumatic. His pupils are 3 round and equally reactive to light. His sclerae are anicteric. His oropharynx is clear without mucosal lesions. He has several missing teeth. NECK: His neck is supple without adenopathy. He has a midline trachea. He has no thyromegaly. He has a healed scar in the area above his sternal notch consistent with prior tracheostomy tube placement. LUNGS: His lungs are clear and equal anteriorly bilaterally. CARDIOVASCULAR: His heart sounds are regular without obvious murmur, rub or gallop. ABDOMEN: His abdomen is soft and nondistended. He has a healed upper midline scar and a punctate scar in the left upper quadrant consistent with prior gastrostomy tube placement. There are no obvious incisional hernias or umbilical hernia. His abdomen is soft. I cannot palpate any masses. He has mild tenderness in the left lower quadrant and suprapubic area. There is no rebound or guarding. GENITAL: Examination is not repeated. RECTAL: Examination is not repeated. EXTREMITIES: His extremities demonstrate a mildly enlarged left lower extremity versus right without pitting edema. He has hair there. There is no sign of chronic ischemia. I cannot palpate any dorsalis pedis pulses. He does not having inguinal lymphadenopathy. He has equal bilateral nuclear chemistry technician strength. He has no gross motor or sensory deficit. LABORATORY DATA His blood counts, hemoglobin is 11.1. His platelet count was 237, this was on February 05 and February 01, respectively. He did have a CEA of 427.4. PSA was normal. His albumin was 3. His liver function tests are all within normal limits except for alkaline phosphatase of 137. Potassium is 4.3. His creatinine 0.69. He was hepatitis panel negative. His coagulation studies on January [address] scan of the chest, abdomen and pelvis demonstrate findings worrisome for possible malignancy of the esophagus as well as the transverse colon with mesenteric and mediastinal lymphadenopathy. Additionally there was a large area of the left lobe of the liver 15 cm in diameter that is felt to be a coalescence of metastatic lesions. He has no ascites. He did have occlusion of the right common iliac artery and external iliac artery, internal iliac artery with reconstitution of contrast in the common femoral, superficial and profunda femoral arteries on the right side. He has inferior vena cava filter in place. ASSESSMENT An unfortunate 61-year-old gentleman with findings worrisome for esophageal and colon cancer with apparent metastatic disease to liver. I discussed these findings with him and he did not indicate that anyone else had discussed these findings with him. Although his biopsies are not diagnostic for cancer with an elevated CEA and findings on endoscopies and CT scans, it is highly suspicious that he has non curable disease. Palliative consideration for surgery would include colon resection and for staging purposes a biopsy of the liver could be performed at that time. I did discuss with him without therapy he is at risk for continued GI bleeding as well as continued growth of the tumor and obstruction of his bowels. I did let him know bowel obstruction is a very painful uncomfortable way to and that while surgery may not be curative, it certainly could be palliative and prevent this result of continued tumor growth. He is not ready to make a decision whether he wants anything done, in fact he commented that he has lived a good life to this point and he is not sure he wants to undergo any extensive treatment. We will certainly revisit him to discuss his options. I appreciate the opportunity to participate in this pleasant man's care. MD AMBAR Pathak/GREGORIO /5:57 PM /9:36 AM
== END 2017-02-08 16:20 | disposition short-term general hospital (02) | DRG 885 ==
LOC: NEPD 15:04 → NEDA 01-04 13:39 → H270 01-04 14:57 → H4EA 02-07 21:20
PROVIDERS: ADMIT Psychiatry & Neurology Psychiatry; ATTEND Psychiatry & Neurology Psychiatry
PROC: 0DBL8ZX Excision of Transverse Colon, Via Natural or Artificial Opening Endoscopic, Diagnostic (ICD-10-PCS; 2017-02-07)
PROC: 0DBH8ZX Excision of Cecum, Via Natural or Artificial Opening Endoscopic, Diagnostic (ICD-10-PCS; 2017-02-07)
PROC: 0DB28ZX Excision of Middle Esophagus, Via Natural or Artificial Opening Endoscopic, Diagnostic (ICD-10-PCS; principal; 2017-02-07 09:29)
PROC: 0DB68ZX Excision of Stomach, Via Natural or Artificial Opening Endoscopic, Diagnostic (ICD-10-PCS; 2017-02-07 09:29)
DX: F31.64 Bipolar disorder, current episode mixed, severe, with psychotic features (principal); I82.411 Acute embolism and thrombosis of right femoral vein; G40.909 Epilepsy, unspecified, not intractable, without status epilepticus; D62 Acute posthemorrhagic anemia; I82.431 Acute embolism and thrombosis of right popliteal vein; K92.1 Melena; F17.210 Nicotine dependence, cigarettes, uncomplicated; K22.9 Disease of esophagus, unspecified; K63.9 Disease of intestine, unspecified; E78.5 Hyperlipidemia, unspecified; K29.70 Gastritis, unspecified, without bleeding; D12.3 Benign neoplasm of transverse colon; K21.0 Gastro-esophageal reflux disease with esophagitis; R59.0 Localized enlarged lymph nodes; Z87.820 Personal history of traumatic brain injury; Z86.718 Personal history of other venous thrombosis and embolism
CPT/HCPCS: 71260; 74177; 76937; 80048; 80053; 80061; 80074; 80076; 80307; 82272; 82378; 82728; 83036; 83540; 83550; 85014; 85018; 85025; 85044; 85060; 85610; 85730; 88305; 88312; 93005; 93971; 95819; J1200; J1630; J2060; J3486; J7120; Q9963; Q9967

== ENCOUNTER 2017-02-08 17:38 | Inpatient (IN) | payer MEDICARE, OTHER ==
[~2017-02-08] VITALS: Ht 185.4 cm; Wt 72.4 kg
[~2017-02-08 17:38] MED LIST changes: +FOSA70TA PO; +LAMO25 PO; +LAMO25TA PO; +OLANZ10 PO; +OXCA300T PO; +PANT40TA3 PO; +SERT-129 PO; +SIMV20TA PO
[2017-02-08 18:00] VITALS: BP_SYST 152; BP_SYST 159; BP_DIAS 74; BP_DIAS 97; PULSE 69; PULSE 95; RESP 18; RESP 22; TEMP 96.5; TEMP 98; O2SAT 100; O2SAT 97
[2017-02-08] MEDS ORDERED: MAGNESIUM HYDROXIDE SUSP 30 ML CUP PO PRN (18:15)
[2017-02-08] MEDS ORDERED: LACTULOSE SYRUP 20 GM/30 ML CUP PO PRN (18:15)
[2017-02-08] MEDS ORDERED: BISACODYL 10 MG SUPP RECTAL PRN (18:15)
[2017-02-08] MEDS ORDERED: NALOXONE HCL 0.4 MG/ML AMP IV PUSH PRN (18:15)
[2017-02-08] MEDS ORDERED: ACETAMINOPHEN 325 MG TAB PO PRN (18:15)
[2017-02-08] MEDS ORDERED: ALENDRONATE SODIUM 70 MG TAB PO SCH (18:15)
[2017-02-08] MEDS ORDERED: SODIUM CHLORIDE 0.9% FLUSH 10 ML FLUSH IV FLUSH PRN (18:15)
[2017-02-08] MEDS ORDERED: ONDANSETRON HCL 4 MG/2 ML VIAL IVP PRN (18:15)
[2017-02-08] MEDS ORDERED: TEMAZEPAM 15 MG CAP PO PRN (18:15)
[2017-02-08] MEDS ORDERED: SENNOSIDES 8.6 MG TAB PO PRN (18:15)
--- NOTE | 2017-02-08 18:17 | HHI.HP ---
[facility] Unknown Admission Diagnosis Diagnoses: Chief Complaint: Anemia, malignancy Travel History International Travel<30 Days: No Contact w/Intl Traveler <30 Da: No Traveled to Known Affected Are: No History of Present Illness Mr. Dooley is a pleasant 61 year old male with a history of bipolar disorder, seizure disorder, right leg DVT who was discharged from psychiatry service to medical floor today for further work up with regards to recently found esophageal and colonic mass. Patient was initially admitted to psychiatric service on 01/03/2017 for psychiatric decompensation including refusal to take medications. Most recent hospitalist consult was placed due to patient's anemia. His hemoglobin dropped from 13.2 --> 12.2 --> 11.2 --> 10.8. Patient has been on Xarelto due to history of right leg DVT. Due to anemia, we obtained iron studies which indicated iron deficiency anemia. GI came on board and performed EGD, Colonoscopy on 02/07/2017. Endoscopic studies unfortunately indicated possibility of esophageal and colonic mass. Patient was subsequently evaluated by medical oncology who obtained CT chest, abdomen/pelvis. Chest CT shows metastatic disease including to the liver. CT abd/pelvis shows metastatic process and colonic mass as well. General surgery evaluated patient and recommended palliative surgery. At the time of this interview, patient denies any chest pain, shortness of breath, fever, chills. He reports dark loose stool but no gross blood in stool. Review of Systems Except as stated in HPI: all other systems reviewed are Neg Past Family Social History Past Medical History TBI Seizure activity RLE DVT Hyperlipidemia Pneumothorax Bipolar disorder. Past Surgical History Chest tube placement Allergies: Coded Allergies: levetiracetam (Verified Adverse Reaction, Intermediate, 02/08/17) Dysphoric reaction. Active Ordered Medications Current Medications Medications (Trade) Dose Ordered Sig/Thaddeus Route Start Time Stop Time Status Last Admin (NS Flush) 2 ml UNSCH PRN IV FLUSH 02/08/17 18:15 (NS Flush) 2 ml BID IV FLUSH 02/08/17 21:00 02/08/17 21:41 (Tylenol) 650 mg Q4H PRN PO 02/08/17 18:15 (Zofran Inj) 4 mg Q6H PRN IVP 02/08/17 18:15 (Restoril) 15 mg HS PRN PO 02/08/17 18:15 (Lovenox Inj) 40 mg Q24H SQ 02/08/17 20:00 02/08/17 21:41 (Narcan Inj) 0.4 mg UNSCH PRN IV PUSH 02/08/17 18:15 ([place]-Colace) 1 tab BID PO 02/08/17 21:00 02/08/17 21:35 (Milk Of Magnesia Liq) 30 ml Q12H PRN PO 02/08/17 18:15 (Senokot) 17.2 mg Q12H PRN PO 02/08/17 18:15 (Dulcolax Supp) 10 mg DAILY PRN RECTAL 02/08/17 18:15 (Lactulose Liq) 30 ml DAILY PRN PO 02/08/17 18:15 (LaMICtal) 50 mg BID PO 02/08/17 21:00 02/08/17 21:36 (ZyPREXA ZYDIS ODT) 10 mg DAILY@0900,1300,2100 PO 02/08/17 21:00 02/08/17 21:35 (Trileptal) 600 mg BID PO 02/08/17 21:00 02/08/17 21:36 (Protonix) 40 mg Q12HR PO 02/08/17 21:00 02/08/17 21:34 (Pravachol) 40 mg DAILY PO 02/09/17 09:00 ([place] 7.5-325 Mg) 1 tab Q6H PRN PO 02/08/17 18:30 Family History Denies any family history of esophageal, gastric, or colorectal cancer. Social History Smokes 1/2 PPD. Usually drinks 2-4 beers per day. Occasional marijuana use. Physical Exam Vital Signs Vital Signs Date Time Temp Pulse Resp B/P (MAP) Pulse Ox O2 Delivery O2 Flow Rate FiO2 02/08/17 18:00 96.5 69 18 152/74 (100) 97 Physical Exam GENERAL: This is a well-nourished, well-developed patient, in no apparent distress. SKIN: No rashes, ecchymoses or lesions. Warm and dry. HEAD: Atraumatic. Normocephalic. No temporal or scalp tenderness. EYES: Pupils equal round and reactive. No injection or drainage. ENT: Nose without bleeding, purulent drainage or septal hematoma. Airway patent. NECK: Trachea midline. No lymphadenopathy. Supple, nontender, no meningeal signs. CARDIOVASCULAR: Regular rate and rhythm without murmurs, gallops, or rubs. No JVD. RESPIRATORY: Clear to auscultation. Breath sounds equal bilaterally. No wheezes , rales, or rhonchi. GASTROINTESTINAL: Abdomen soft, non-tender, nondistended. No guarding. MUSCULOSKELETAL: Extremities without clubbing, cyanosis, or edema. NEUROLOGICAL: Awake and alert. Cranial nerves II through XII intact. No focal neurological deficits. Normal speech. Imaging Last Impressions Chest CT 02/08/17 0000 Signed Impressions: Service Date/Time: Wednesday, February 08, 2017 09:59 - CONCLUSION: 1. Metastatic disease to the liver identified with confluent hepatic masses in the left lobe of the 15.3 cm. 2. Regional lymphadenopathy in the periesophageal and cardiophrenic region, and distal esophageal soft tissue prominence presumably representing the area of patient's known esophageal mass. 3. The atelectatic changes are suspected at the lung bases greatest at the right lung base with triangular shaped soft tissue density noted with adjacent swirling of the bronchovascular markings. Small bilateral pleural effusions. 4. Emphysema. Ernie Hernandez MD Abdomen/Pelvis CT 02/08/17 0000 Signed Impressions: Service Date/Time: Wednesday, February 08, 2017 09:59 - CONCLUSION: 1. Confluent hepatic masses in the left lobe suspect for metastatic disease to the liver with upper abdominal adenopathy and this is concerning for metastatic disease until proven otherwise. 2. There is a colocolonic intussusception at the proximal transverse colon extending over 9.5 cm, felt to most likely be secondary to a colonic mass of the mid transverse colon which is not well evaluated on this study but suspected on axial image 48. Regional lymphadenopathy in the pericolonic fat is concerning for metastatic disease. 3. Occlusion of the right common, external and internal iliac arteries. Ernie Hernandez MD Lower Extremity Ultrasound 01/11/17 0000 Signed Impressions: Service Date/Time: Wednesday, January 11, 2017 10:43 - CONCLUSION: Nonocclusive thrombus right common femoral vein extending to the superficial femoral vein and popliteal vein MD Jesse Riggins VTE Risk Assessment Jesse VTE Risk Assessment: Mod/High Risk (score >= 2) Caprini Risk Assessment Model Point Value = 1 Point Value = 2 Point Value = 3 Point Value = 5 Age 41-60 Minor surgery BMI > 25 kg/m2 Swollen legs Varicose veins or History of unexplained or recurrent spontaneous Oral contraceptives or hormone replacement Sepsis (< 1 month) Serious lung disease, including pneumonia (< 1 month) Abnormal pulmonary function Acute myocardial infarction Congestive heart failure (< 1 month) History of inflammatory bowel disease Medical patient at bed rest Age 61-74 Arthroscopic surgery Major open surgery (> 45 min) Laparoscopic surgery (> 45 min) Malignancy Confined to bed (> 72 hours) Immobilizing plaster cast Central venous access Age >= 75 History of VTE Family history of VTE Factor V Leiden Prothrombin [id number] Lupus anticoagulant Anticardiolipin antibodies Elevated serum homocysteine Heparin-induced thrombocytopenia Other congenital or acquired thrombophilia Stroke (< 1 month) Elective arthroplasty Hip, pelvis, or leg fracture Acute spinal cord injury (< 1 month) Prophylaxis Regimen Total Risk Factor Score Risk Level Prophylaxis Regimen 0-1 Low Early ambulation 2 Moderate Order ONE of the following: *Sequential Compression Device (SCD) *Heparin 5000 units SQ BID 3-4 Higher Order ONE of the following medications: *Heparin 5000 units SQ TID *Enoxaparin/Lovenox 40 mg SQ daily (WT < 150 kg, CrCl > 30 mL/min) *Enoxaparin/Lovenox 30 mg SQ daily (WT < 150 kg, CrCl > 10-29 mL/min) *Enoxaparin/Lovenox 30 mg SQ BID (WT < 150 kg, CrCl > 30 mL/min) AND/OR *Sequential Compression Device (SCD) 5 or more Highest Order ONE of the following medications: *Heparin 5000 units SQ TID (Preferred with Epidurals) *Enoxaparin/Lovenox 40 mg SQ daily (WT < 150 kg, CrCl > 30 mL/min) *Enoxaparin/Lovenox 30 mg SQ daily (WT < 150 kg, CrCl > 10-29 mL/min) *Enoxaparin/Lovenox 30 mg SQ BID (WT < 150 kg, CrCl > 30 mL/min) AND *Sequential Compression Device (SCD) Assessment and Plan Problem List: (1) Esophageal mass ICD Code: K22.9 - Disease of esophagus, unspecified (2) Colonic mass ICD Code: K63.9 - Disease of intestine, unspecified (3) Bipolar disorder ICD Code: F31.9 - Bipolar disorder, unspecified (4) Post-traumatic seizures ICD Code: R56.1 - Post traumatic seizures (5) Normocytic anemia ICD Code: D64.9 - Anemia, unspecified Status: Acute Assessment and Plan Mr. Dooley is a pleasant 61 year old male with a history of bipolar disorder, likely post-traumatic seizure disorder who underwent EGD/Colonoscopy and found to have esophageal, colonic mass. Patient was under the care of psychiatry service when he was being worked up for iron deficiency anemia. Imaging studies indicated very likely widely metastatic malignancy. Oncology and general surgery has evaluated patient. - Probable metastatic malignancy - Esophageal mass - Colonic mass - CEA is 427.4 (Normal range 0.2 - 5.0). - CT chest and CT abdomen, pelvis images reviewed by me on 02/08/2017 - shows diffuse metastasis. - Patient will likely need palliative surgery. Patient has not made up his mind. - Will re-consult heme/onc and General surgery so that they can continue to follow this patient. - Will also consult Palliative care at this point. - Right lower ext DVT - Patient has an IVC filter and has been on Warfarin then Xarelto. - Full anticoagulation is currently on hold due to GI bleed, iron deficiency anemia. - Discussed with hematology/oncology. Will hold off full anticoagulation for now. - Will continue Lovenox 40mg Qday (DVT Prophylaxis dose). - Iron deficiency anemia - likely due to malignancy related GI bleed. - Will continue Protonix 40mg BID. - Transfuse as needed. - Will check CBC, BMP in the AM. IF CBC indicates further drop in hemoglobin , consider discontinuing Lovenox 40mg. - Post-traumatic seizure disorder - Patient had significant dysphoric reaction to Keppra - we will avoid using Keppra. - Continue Trileptal 600mg BID and Lamictal 50mg BID. - Bipolar disorder - Continue Olazapine 10mg TID. Full code. Lovenox DVT Prophylaxis dose. Physician Certification 2 Midnight Certification Type: Admission for Inpatient Services Order for Inpatient Services The services are ordered in accordance with Medicare regulations or non- Medicare payer requirements, as applicable. In the case of services not specified as inpatient-only, they are appropriately provided as inpatient services in accordance with the 2-midnight benchmark. Estimated LOS (days): 3 days is the estimated time the patient will need to remain in the hospital, assuming treatment plan goals are met and no additional complications. Post-Hospital Plan: Not yet determined Kamala Melo DO Feb 08, 2017 18:17
[2017-02-08] MEDS ORDERED: ACETAMINOPHEN/HYDROcodone 325 MG/7.5 MG TAB PO PRN (18:30)
[2017-02-08 20:10] VITALS: BP 136/65; PULSE 72; RESP 17; TEMP 96.2; O2SAT 97
[2017-02-08] MEDS: PANTOPRAZOLE SOD 40 MG DELAYED RELEASE TAB PO SCH (21:34)
[2017-02-08] MEDS: DOCUSATE SODIUM 50 MG/SENNA 8.6 MG TAB PO SCH (21:35)
[2017-02-08] MEDS: OLANZapine ODT 10 MG TAB PO SCH (21:35)
[2017-02-08] MEDS: lamoTRIgine 25 MG TAB PO SCH (21:36)
[2017-02-08] MEDS: OXcarbazepine 300 MG TAB PO SCH (21:36)
[2017-02-08] MEDS: SODIUM CHLORIDE 0.9% FLUSH 10 ML FLUSH IV FLUSH SCH (21:41)
[2017-02-08] MEDS: ENOXAPARIN SODIUM 40 MG/0.4 ML SYRINGE SQ SCH (21:41)
[2017-02-09 00:05] VITALS: BP 104/61; PULSE 63; RESP 17; TEMP 96.4; O2SAT 94
[2017-02-09 04:10] VITALS: BP 116/66; PULSE 69; RESP 18; TEMP 96; O2SAT 96
[2017-02-09 07:24] LABS: AUTOMATED NEUTROPHIL # 3.2 TH/MM3 (1.8-7.7); BASOPHIL % 0.7 % (0.0-2.0); EOSINOPHIL # 0.3 TH/MM3 (0-0.4); EOSINOPHIL % 5.5 % (0.0-4.0); HEMATOCRIT 34.9 % (39.0-51.0); HEMO FLAGS DIFF FINAL; LYMPH % 24.6 % (9.0-44.0); LYMPHOCYTE # 1.3 TH/MM3 (1.0-4.8); MEAN CELL VOLUME 94.2 FL (80.0-100.0); MEAN CORPUSCULAR HEMOGLOBIN 31.1 PG (27.0-34.0); MONO % 8.7 % (0.0-8.0); NEUT % 60.5 % (16.0-70.0); PLATELET COUNT 245 TH/MM3 (150-450); RED BLOOD COUNT 3.71 MIL/MM3 (4.50-5.90); RED CELL DISTRIBUTION WIDTH 15.1 % (11.6-17.2); WHITE BLOOD COUNT 5.2 TH/MM3 (4.0-11.0)
[2017-02-09 07:31] LABS: BICARBONATE 22.9 MEQ/L (21.0-32.0); POTASSIUM 3.9 MEQ/L (3.5-5.1)
[2017-02-09 08:00] VITALS: BP 140/86; PULSE 71; RESP 20; TEMP 95.8; O2SAT 98
[2017-02-09] MEDS: SODIUM CHLORIDE 0.9% FLUSH 10 ML FLUSH IV FLUSH SCH ×2 (08:39→21:17)
[2017-02-09] MEDS: PRAVASTATIN SOD 40 MG TAB PO SCH (08:40)
[2017-02-09] MEDS: DOCUSATE SODIUM 50 MG/SENNA 8.6 MG TAB PO SCH ×2 (08:40→21:16)
[2017-02-09] MEDS: PANTOPRAZOLE SOD 40 MG DELAYED RELEASE TAB PO SCH ×2 (08:40→21:16)
[2017-02-09] MEDS: lamoTRIgine 25 MG TAB PO SCH ×2 (08:40→21:16)
[2017-02-09] MEDS: OXcarbazepine 300 MG TAB PO SCH ×2 (08:40→21:17)
[2017-02-09] MEDS: OLANZapine ODT 10 MG TAB PO SCH ×3 (08:42→21:18)
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
--- NOTE | 2017-02-09 11:16 | PD.ONC.PN ---
Subjective Subjective Remarks Afebrile Pt walking around room in no acute distress Reports a dull headache Otherwise no complaints Objective Data Date Time Temp Pulse Resp B/P (MAP) Pulse Ox O2 Delivery O2 Flow Rate FiO2 02/09/17 08:00 95.8 71 20 140/86 (104) 98 02/09/17 04:10 96.0 69 18 116/66 (83) 96 02/09/17 00:05 96.4 63 17 104/61 (75) 94 02/08/17 20:10 96.2 72 17 136/65 (88) 97 02/08/17 18:00 96.5 69 18 152/74 (100) 97 02/09/17 02/09/17 02/09/17 07:00 15:00 23:00 Intake Total 240 ml Balance 240 ml Result Diagram: 02/09/1731 02/09/1731 Laboratory Results Laboratory Tests Test 02/09/17 06:31 White Blood Count 5.2 TH/MM3 Red Blood Count 3.71 MIL/MM3 Hemoglobin 11.5 GM/DL Hematocrit 34.9 % Mean Corpuscular Volume 94.2 FL Mean Corpuscular Hemoglobin 31.1 PG Mean Corpuscular Hemoglobin Concent 33.0 % Red Cell Distribution Width 15.1 % Platelet Count 245 TH/MM3 Mean Platelet Volume 6.7 FL Neutrophils (%) (Auto) 60.5 % Lymphocytes (%) (Auto) 24.6 % Monocytes (%) (Auto) 8.7 % Eosinophils (%) (Auto) 5.5 % Basophils (%) (Auto) 0.7 % Neutrophils # (Auto) 3.2 TH/MM3 Lymphocytes # (Auto) 1.3 TH/MM3 Monocytes # (Auto) 0.5 TH/MM3 Eosinophils # (Auto) 0.3 TH/MM3 Basophils # (Auto) 0.0 TH/MM3 CBC Comment DIFF FINAL Differential Comment Blood Urea Nitrogen 5 MG/DL Creatinine 0.61 MG/DL Random Glucose 82 MG/DL Calcium Level 8.4 MG/DL Sodium Level 131 MEQ/L Potassium Level 3.9 MEQ/L Chloride Level 100 MEQ/L Carbon Dioxide Level 22.9 MEQ/L Anion Gap 8 MEQ/L Estimat Glomerular Filtration Rate 135 ML/MIN Administered Medications Medications (Trade) Dose Ordered Sig/Thaddeus Route PRN Reason Start Time Stop Time Status Last Admin Dose Admin Sodium Chloride (NS Flush) 2 ml BID IV FLUSH 02/08/17 21:00 02/09/17 08:39 Enoxaparin Sodium (Lovenox Inj) 40 mg Q24H SQ 02/08/17 20:00 02/08/17 21:41 Senna/Docusate Sodium ([place]-Colace) 1 tab BID PO 02/08/17 21:00 02/09/17 08:40 Lamotrigine (LaMICtal) 50 mg BID PO 02/08/17 21:00 02/09/17 08:40 Olanzapine (ZyPREXA ZYDIS ODT) 10 mg DAILY@0900,1300,2100 PO 02/08/17 21:00 02/09/17 08:42 Oxcarbazepine (Trileptal) 600 mg BID PO 02/08/17 21:00 02/09/17 08:40 Pantoprazole Sodium (Protonix) 40 mg Q12HR PO 02/08/17 21:00 02/09/17 08:40 Pravastatin Sodium (Pravachol) 40 mg DAILY PO 02/09/17 09:00 02/09/17 08:40 Objective Remarks GENERAL: Older male, walking around his room in no acute distress SKIN: Warm and dry. HEAD: Normocephalic. EYES: No injection or drainage. NECK: Supple, trachea midline. CARDIOVASCULAR: Regular rate and rhythm without murmurs. RESPIRATORY: Clear posteriorly. Breathing unlabored. GASTROINTESTINAL: Abdomen soft, non-tender, nondistended. EXTREMITIES: No cyanosis. Right lower extremity 1+ edema MUSCULOSKELETAL: Adequate muscle tone. NEUROLOGICAL: No obvious focal deficit. Awake, alert, and oriented x3. Assessment/Plan Problem List: (1) Colonic mass ICD Codes: K63.9 - Disease of intestine, unspecified Plan: 02/09/17: Will ask radiology to do CT guided biopsy of liver lesion (if amenable) as pt unsure if he wants to go through with palliative surgery. Discussed with pt, he is agreeable. -- CEA elevated at 427 -- Pt with extensive mets to liver -- The patient underwent upper endoscopy which showed esophageal mass. Multiple biopsies were obtained however were nonconclusive. -- General surgery following Assessment 61 y/o male brought in as a barger act and found to have a colonic mass with elevated CEA Attending Statement no c/o I discuss with pt regarding CT C/A/P findings which shows extensive liver mets. EGD and C-scope path = non diagnostic. CEA is very high. IR for liver bx. Pt is not a candidate for palliative chemo due to his social situation ( Lives in a residential, No transportation to come frequently for chemo) consult palliative care. I recommend hospice. The exam, history, and the medical decision-making described in the above note were completed with the assistance of the mid-level provider. I reviewed and agree with the findings presented. I attest that I had a [id number] encounter with the patient on the same day, and personally performed and documented my assessment and findings in the medical record. Rufina Tsang Feb 09, 2017 11:16 Maya Patel MD Feb 09, 2017 23:43
[2017-02-09 12:00] VITALS: BP 133/77; PULSE 74; RESP 20; TEMP 96.2; O2SAT 98
--- NOTE | 2017-02-09 13:16 | HHI.PR ---
Subjective Subjective Notes Pt goes from deciding he wants surgery to not wanting surgery in a matter of seconds. From oncology note, CT guided biopsy of liver is ordered. Objective Vitals/I&O Vital Signs Date Time Temp Pulse Resp B/P (MAP) Pulse Ox O2 Delivery O2 Flow Rate FiO2 02/09/17 12:00 96.2 74 20 133/77 (95) 98 Labs Laboratory Tests Test 02/09/17 06:31 White Blood Count 5.2 Red Blood Count 3.71 Hemoglobin 11.5 Hematocrit 34.9 Mean Corpuscular Volume 94.2 Mean Corpuscular Hemoglobin 31.1 Mean Corpuscular Hemoglobin Concent 33.0 Red Cell Distribution Width 15.1 Platelet Count 245 Mean Platelet Volume 6.7 Neutrophils (%) (Auto) 60.5 Lymphocytes (%) (Auto) 24.6 Monocytes (%) (Auto) 8.7 Eosinophils (%) (Auto) 5.5 Basophils (%) (Auto) 0.7 Neutrophils # (Auto) 3.2 Lymphocytes # (Auto) 1.3 Monocytes # (Auto) 0.5 Eosinophils # (Auto) 0.3 Basophils # (Auto) 0.0 CBC Comment DIFF FINAL Differential Comment Blood Urea Nitrogen 5 Creatinine 0.61 Random Glucose 82 Calcium Level 8.4 Sodium Level 131 Potassium Level 3.9 Chloride Level 100 Carbon Dioxide Level 22.9 Anion Gap 8 Estimat Glomerular Filtration Rate 135 Abdomen: Non-distended, Non-tender A/P Assessment and Plan Apparent colon and esophageal cancers, biopsies benign, but endoscopic findings and CT images and CEA level all highly suspicious for mets cancer. I again offered patient surgery for colon resection as a palliative option with or without adjuvant therapies. He demonstrates an inability to commit to surgery as an option. I will be available to assist in his care if he decides he would like me to help him. Please call me if needed, . Karl Curran MD Feb 09, 2017 13:16
--- NOTE | 2017-02-09 14:08 | HHI.HCPN ---
Met with Mr. Dooley. He is lying in bed watching television, alert and appropriate in conversation. Able to make his needs known. He is able to review his current medical condition. Participated in some life review. His affect is brightened when speaking about motorcycles. Mr. Dooley has been in [place] since 1982, no local family but supported by a friend Ezio Mendoza (c: , h: [phone]). Mr. Dooley has a living mother and 3 brothers. Gently discussed health care surrogate appointment. He verbalizes desire to look over paperwork before completing but states "Ezio would do it". Also reports possibly appointing his mom, but is concerns about her health as well as she is 83 years old. Gently discussed should his condition worsen what his wishes would be regarding cardiac resuscitation and ventilator support vs allow natural . He becomes tearful and replies, "I've lived my life, at 61 years old there is no much more you can do than retire". Further clarifies he does not want cardiac resuscitation or ventilator support. He confirms he desires to be allowed to pass peacefully and naturally. He desires NO CODE status. Offered emotional support. In review of old records (discharge summary) and follow-up conversation with psychiatric department, Mr. Dooley does not require further inpatient psychiatric admission. Guardian advocate appointed while he was under the barger act but he has seen been released from psychiatric admission. At this time Mr. Dooley is alert and oriented, appears to understand his medical condition and is able to weigh the benefits and burdens of medical care. Reviewed palliative care role during hospitalization. Mr. Dooley is receptive to ongoing follow-up and conversation with palliative care. Palliative care will follow-up tomorrow regarding health care surrogate designation. Herminia Keys, RETAIL GREETER Feb 09, 2017 14:08
--- NOTE | 2017-02-09 14:17 | HHI.PR ---
Subjective Remarks Denies cp/sob denies fevers/chills afebrile stable vital signs Objective Vitals Vital Signs Date Time Temp Pulse Resp B/P (MAP) Pulse Ox O2 Delivery O2 Flow Rate FiO2 02/09/17 12:00 96.2 74 20 133/77 (95) 98 02/09/17 08:00 95.8 71 20 140/86 (104) 98 02/09/17 04:10 96.0 69 18 116/66 (83) 96 02/09/17 00:05 96.4 63 17 104/61 (75) 94 02/08/17 20:10 96.2 72 17 136/65 (88) 97 02/08/17 18:00 96.5 69 18 152/74 (100) 97 I/O 02/08/17 02/08/17 02/08/17 02/09/17 02/09/17 02/09/17 07:00 15:00 23:00 07:00 15:00 23:00 Intake Total 240 ml Balance 240 ml Intake Oral 240 ml # Voids 1 Result Diagram: 02/09/1731 02/09/17630 Objective Remarks Thin cachectic, NAD Lungs bilaterally S1-S2 present with regular rate and rhythm, rubs or gallops Bowel sounds present, soft, nontender Medications and IVs Current Medications Medications (Trade) Dose Ordered Sig/Thaddeus Route Start Time Stop Time Status Last Admin (NS Flush) 2 ml UNSCH PRN IV FLUSH 02/08/17 18:15 (NS Flush) 2 ml BID IV FLUSH 02/08/17 21:00 02/09/17 08:39 (Tylenol) 650 mg Q4H PRN PO 02/08/17 18:15 (Zofran Inj) 4 mg Q6H PRN IVP 02/08/17 18:15 (Restoril) 15 mg HS PRN PO 02/08/17 18:15 (Lovenox Inj) 40 mg Q24H SQ 02/08/17 20:00 02/08/17 21:41 (Narcan Inj) 0.4 mg UNSCH PRN IV PUSH 02/08/17 18:15 ([place]-Colace) 1 tab BID PO 02/08/17 21:00 02/09/17 08:40 (Milk Of Magnesia Liq) 30 ml Q12H PRN PO 02/08/17 18:15 (Senokot) 17.2 mg Q12H PRN PO 02/08/17 18:15 (Dulcolax Supp) 10 mg DAILY PRN RECTAL 02/08/17 18:15 (Lactulose Liq) 30 ml DAILY PRN PO 02/08/17 18:15 (LaMICtal) 50 mg BID PO 02/08/17 21:00 02/09/17 08:40 (ZyPREXA ZYDIS ODT) 10 mg DAILY@0900,1300,2100 PO 02/08/17 21:00 02/09/17 13:30 (Trileptal) 600 mg BID PO 02/08/17 21:00 02/09/17 08:40 (Protonix) 40 mg Q12HR PO 02/08/17 21:00 02/09/17 08:40 (Pravachol) 40 mg DAILY PO 02/09/17 09:00 02/09/17 08:40 ([place] 7.5-325 Mg) 1 tab Q6H PRN PO 02/08/17 18:30 Urinary Catheter: No Vascular Central Line Catheter: No A/P Problem List: (1) Esophageal mass ICD Code: K22.9 - Disease of esophagus, unspecified (2) Colonic mass ICD Code: K63.9 - Disease of intestine, unspecified (3) Bipolar disorder ICD Code: F31.9 - Bipolar disorder, unspecified (4) Post-traumatic seizures ICD Code: R56.1 - Post traumatic seizures (5) Normocytic anemia ICD Code: D64.9 - Anemia, unspecified Status: Acute Assessment and Plan Mr. Dooley is a pleasant 61 year old male with a history of bipolar disorder, likely post-traumatic seizure disorder who underwent EGD/Colonoscopy and found to have esophageal, colonic mass. Patient was under the care of psychiatry service when he was being worked up for iron deficiency anemia. Imaging studies indicated very likely widely metastatic malignancy. Oncology and general surgery has evaluated patient. - Probable metastatic malignancy - Esophageal mass - Colonic mass - CEA is 427.4 (Normal range 0.2 - 5.0). - CT chest and CT abdomen, pelvis images reviewed by me on 02/09/2017 - shows diffuse metastasis. - Patient will likely need palliative surgery. Patient has not made up his mind. - 02/09 appreciate general surgery recommendations. Colon resection offered to the patient, however the patient states that he does not want to have surgical procedure. Oncology consulted, CT-guided biopsy of liver lesion will be taken. - Right lower ext DVT - Patient has an IVC filter and has been on Warfarin then Xarelto. - Full anticoagulation is currently on hold due to GI bleed, iron deficiency anemia. - Discussed with hematology/oncology. Will hold off full anticoagulation for now. - Will continue Lovenox 40mg Qday (DVT Prophylaxis dose). - Iron deficiency anemia - likely due to malignancy related GI bleed. - Will continue Protonix 40mg BID. - Transfuse as needed. - 02/09 hemoglobin seems to be stable at 11.5. Continue to monitor CBC. Continue Lovenox subcutaneously for now. - Post-traumatic seizure disorder - Patient had significant dysphoric reaction to Keppra - Avoid Keppra use. - Continue Trileptal 600mg BID and Lamictal 50mg BID. - Bipolar disorder - Continue Olazapine 10mg TID. - Hyponatremia - check urine and serum osmolality. Place on fluid restriction and continue to monitor BMP. Full code. Lovenox DVT Prophylaxis dose. Joseph Gómez MD Feb 09, 2017 14:17
[2017-02-09 15:03] VITALS: BP 150/87; PULSE 74; RESP 20; TEMP 95.5; O2SAT 98
[2017-02-09 20:46] VITALS: BP 139/85; PULSE 79; RESP 18; TEMP 97.3; O2SAT 97
[2017-02-09] MEDS: ENOXAPARIN SODIUM 40 MG/0.4 ML SYRINGE SQ SCH (21:16)
[2017-02-10 00:46] VITALS: BP 128/73; PULSE 76; RESP 18; TEMP 98.2; O2SAT 96
[2017-02-10 05:01] VITALS: BP 128/73; PULSE 76; RESP 18; TEMP 98.2; O2SAT 96
[2017-02-10 07:37] LABS: HEMATOCRIT 35.1 % (39.0-51.0); MEAN CELL VOLUME 93.9 FL (80.0-100.0); MEAN CORPUSCULAR HEMOGLOBIN 31.1 PG (27.0-34.0); MEAN CORPUSCULAR HGB CONC 33.1 % (32.0-36.0); PLATELET COUNT 273 TH/MM3 (150-450); RED BLOOD COUNT 3.74 MIL/MM3 (4.50-5.90); RED CELL DISTRIBUTION WIDTH 15.1 % (11.6-17.2); REVIEW FLAG FINAL; WHITE BLOOD COUNT 5.7 TH/MM3 (4.0-11.0)
[2017-02-10 07:42] LABS: PROTHROMBIN TIME - PATIENT 10.6 SEC (9.8-11.6)
[2017-02-10 07:50] VITALS: BP 126/68; PULSE 65; RESP 20; TEMP 96.2; O2SAT 96
[2017-02-10 08:07] LABS: BICARBONATE 25.5 MEQ/L (21.0-32.0); MAGNESIUM 1.9 MG/DL (1.5-2.5); POTASSIUM 4.3 MEQ/L (3.5-5.1)
[2017-02-10] MEDS: PRAVASTATIN SOD 40 MG TAB PO SCH (09:46)
[2017-02-10] MEDS: OXcarbazepine 300 MG TAB PO SCH ×2 (09:46→23:07)
[2017-02-10] MEDS: lamoTRIgine 25 MG TAB PO SCH ×2 (09:46→23:07)
[2017-02-10] MEDS: PANTOPRAZOLE SOD 40 MG DELAYED RELEASE TAB PO SCH ×2 (09:46→23:07)
[2017-02-10] MEDS: DOCUSATE SODIUM 50 MG/SENNA 8.6 MG TAB PO SCH ×2 (09:47→23:07)
[2017-02-10] MEDS: SODIUM CHLORIDE 0.9% FLUSH 10 ML FLUSH IV FLUSH SCH ×2 (09:47→23:08)
[2017-02-10] MEDS: OLANZapine ODT 10 MG TAB PO SCH ×3 (09:50→23:07)
--- NOTE | 2017-02-10 11:47 | PD.ONC.PN ---
Subjective Subjective Remarks Afebrile Patient resting in bed watching TV in no acute distress He is asking what time the biopsy will be done today No other acute complaints Objective Data Date Time Temp Pulse Resp B/P (MAP) Pulse Ox O2 Delivery O2 Flow Rate FiO2 02/10/17 07:50 96.2 65 20 126/68 (87) 96 02/10/17 05:01 98.2 76 18 128/73 (91) 96 02/10/17 00:46 98.2 76 18 128/73 (91) 96 02/09/17 20:46 97.3 79 18 139/85 (103) 97 02/09/17 15:03 95.5 74 20 150/87 (108) 98 02/09/17 12:00 96.2 74 20 133/77 (95) 98 Result Diagram: 02/10/1755 02/10/1755 Laboratory Results Laboratory Tests Test 02/09/17 17:29 02/09/17 18:05 02/10/17 06:55 Serum Osmolality 276 MOSM/KG Urine Osmolality 276 MOSM/KG White Blood Count 5.7 TH/MM3 Red Blood Count 3.74 MIL/MM3 Hemoglobin 11.6 GM/DL Hematocrit 35.1 % Mean Corpuscular Volume 93.9 FL Mean Corpuscular Hemoglobin 31.1 PG Mean Corpuscular Hemoglobin Concent 33.1 % Red Cell Distribution Width 15.1 % Platelet Count 273 TH/MM3 Mean Platelet Volume 6.8 FL Prothrombin Time 10.6 SEC Prothromb Time International Ratio 1.0 RATIO Blood Urea Nitrogen 6 MG/DL Creatinine 0.75 MG/DL Random Glucose 85 MG/DL Calcium Level 8.7 MG/DL Phosphorus Level 3.7 MG/DL Magnesium Level 1.9 MG/DL Sodium Level 135 MEQ/L Potassium Level 4.3 MEQ/L Chloride Level 103 MEQ/L Carbon Dioxide Level 25.5 MEQ/L Anion Gap 7 MEQ/L Estimat Glomerular Filtration Rate 106 ML/MIN Administered Medications Medications (Trade) Dose Ordered Sig/Thaddeus Route PRN Reason Start Time Stop Time Status Last Admin Dose Admin Sodium Chloride (NS Flush) 2 ml BID IV FLUSH 02/08/17 21:00 02/10/17 09:47 Enoxaparin Sodium (Lovenox Inj) 40 mg Q24H SQ 02/08/17 20:00 02/09/17 21:16 Senna/Docusate Sodium ([place]-Colace) 1 tab BID PO 02/08/17 21:00 02/09/17 21:16 Lamotrigine (LaMICtal) 50 mg BID PO 02/08/17 21:00 02/10/17 09:46 Olanzapine (ZyPREXA ZYDIS ODT) 10 mg DAILY@0900,1300,2100 PO 02/08/17 21:00 02/10/17 09:50 Oxcarbazepine (Trileptal) 600 mg BID PO 02/08/17 21:00 02/10/17 09:46 Pantoprazole Sodium (Protonix) 40 mg Q12HR PO 02/08/17 21:00 02/10/17 09:46 Pravastatin Sodium (Pravachol) 40 mg DAILY PO 02/09/17 09:00 02/10/17 09:46 Objective Remarks GENERAL: Older male, walking around his room in no acute distress SKIN: Warm and dry. HEAD: Normocephalic. EYES: No injection or drainage. NECK: Supple, trachea midline. CARDIOVASCULAR: Regular rate and rhythm without murmurs. RESPIRATORY: Clear posteriorly. Breathing unlabored. GASTROINTESTINAL: Abdomen soft, non-tender, nondistended. EXTREMITIES: No cyanosis. Right lower extremity 1+ edema MUSCULOSKELETAL: Adequate muscle tone. NEUROLOGICAL: No obvious focal deficit. Awake, alert, and oriented x3. Assessment/Plan Problem List: (1) Colonic mass ICD Codes: K63.9 - Disease of intestine, unspecified Plan: 02/10/17: Awaiting biopsy of liver lesion. Discussed with palliative care - if patient unable to get transportation [facility] to and from the clinic then he will not be a candidate for chemotherapy. -- CEA elevated at 427 -- Pt with extensive mets to liver -- The patient underwent upper endoscopy which showed esophageal mass. Multiple biopsies were obtained however were nonconclusive. -- General surgery following Assessment 61 y/o male brought in as a barger act and found to have a colonic mass with elevated CEA Attending Statement no new c/o await Liver bx recommend hospice. The exam, history, and the medical decision-making described in the above note were completed with the assistance of the mid-level provider. I reviewed and agree with the findings presented. I attest that I had a [id number] encounter with the patient on the same day, and personally performed and documented my assessment and findings in the medical record. Rufina Tsang Feb 10, 2017 11:47 Maya Patel MD Feb 10, 2017 13:12
[2017-02-10 11:50] VITALS: BP 128/71; PULSE 69; RESP 20; TEMP 96.4; O2SAT 97
--- NOTE | 2017-02-10 12:54 | HHI.PR ---
Subjective Remarks Overall his pain is controlled. He is tolerating his diet. He is declining any surgery. He states that he could be open to chemotherapy however I explained to him he is likely not a candidate. Objective Vitals Vital Signs Date Time Temp Pulse Resp B/P (MAP) Pulse Ox O2 Delivery O2 Flow Rate FiO2 02/10/17 07:50 96.2 65 20 126/68 (87) 96 02/10/17 05:01 98.2 76 18 128/73 (91) 96 02/10/17 00:46 98.2 76 18 128/73 (91) 96 02/09/17 20:46 97.3 79 18 139/85 (103) 97 02/09/17 15:03 95.5 74 20 150/87 (108) 98 I/O 02/09/17 02/09/17 02/09/17 02/10/17 02/10/17 02/10/17 07:00 15:00 23:00 07:00 15:00 23:00 Intake Total 240 ml Balance 240 ml Intake Oral 240 ml # Voids 1 # Bowel Movements 1 Result Diagram: 02/10/17 0655 02/10/17 0655 Objective Remarks GENERAL: This is a well-nourished, well-developed patient, in no apparent distress. CARDIOVASCULAR: Regular rate and rhythm RESPIRATORY: Clear to auscultation. Breath sounds equal bilaterally. No wheezes , rales, or rhonchi. GASTROINTESTINAL: Abdomen soft, non-tender, nondistended. Normal active bowel sounds MUSCULOSKELETAL: Extremities without clubbing, cyanosis, or edema. NEURO: Alert & Oriented x4 to person, place, time, situation. Moves all ext x4 A/P Problem List: (1) Esophageal mass ICD Code: K22.9 - Disease of esophagus, unspecified (2) Colonic mass ICD Code: K63.9 - Disease of intestine, unspecified (3) Bipolar disorder ICD Code: F31.9 - Bipolar disorder, unspecified (4) Post-traumatic seizures ICD Code: R56.1 - Post traumatic seizures (5) Normocytic anemia ICD Code: D64.9 - Anemia, unspecified Status: Acute Assessment and Plan Mr. Dooley is a pleasant 61 year old male with a history of bipolar disorder, likely post-traumatic seizure disorder who underwent EGD/Colonoscopy and found to have esophageal, colonic mass. Patient was under the care of psychiatry service when he was being worked up for iron deficiency anemia. Imaging studies indicated very likely widely metastatic malignancy. Oncology and general surgery has evaluated patient. - Probable metastatic malignancy although unable to get definitive tissue. - Esophageal mass - Colonic mass - CEA is 427.4 (Normal range 0.2 - 5.0). - CT chest and CT abdomen, pelvis images reviewed by me on 02/09/2017 - shows diffuse metastasis. -Patient is declining any palliative surgery. - He is open to comfort measures. Palliative care services also following. He is open to receiving information on hospice. He declines any invasive procedures. At this time will cancel the CT-guided liver biopsy. - Right lower ext DVT - Patient has an IVC filter and has been on Warfarin then Xarelto. - Full anticoagulation is currently on hold due to GI bleed, iron deficiency anemia. - Discussed with hematology/oncology. Will hold off full anticoagulation for now. - Will continue Lovenox 40mg Qday (DVT Prophylaxis dose). - Iron deficiency anemia - likely due to malignancy related GI bleed. - Will continue Protonix 40mg BID. - Transfuse as needed. - 02/09 hemoglobin seems to be stable at 11.6. Continue to monitor CBC. Continue Lovenox subcutaneously for now. - Post-traumatic seizure disorder - Patient had significant dysphoric reaction to Keppra - Avoid Keppra use. - Continue Trileptal 600mg BID and Lamictal 50mg BID. - Bipolar disorder - Continue Olazapine 10mg TID. - Hyponatremia, likely due to SIADH- fluid restricted and sodium improving Lovenox DVT Prophylaxis dose. DO NOT RESUSCITATE Discharge Planning [facility] after further discussions with palliative care hospice to determine final decision. Alice Orosco MD Feb 10, 2017 12:54
[2017-02-10 15:50] VITALS: BP 95/45; PULSE 69; RESP 20; O2SAT 96
--- NOTE | 2017-02-10 17:21 | HHI.HCPN ---
Reason for visit a. To assist with evaluation and management of symptoms including: pain, anxiety, weakness b. To assist medical decision maker(s) with: better understanding of current medical conditions; weighing benefits/burdens of medical treatment options; making medical treatment decisions. . Subjective/Interval History Follow-up visit for symptom management and clarification of medical treatment goals. Patient presents sitting upright in bed. He is alert and oriented to person place and situation. He denies any distress, denies pain. Hemodynamically stable. WBC: 5.7, hemoglobin 11.6, hematocrit 35.1, platelets 273 Sodium: 135, potassium 4.3, chloride 103, carbon dioxide 25.5, glucose 85, calcium 8.7, phosphorus 3.7, magnesium 1.9 BUN: 6, creatinine 0.75, GFR 106 PT: 10.6, INR 1.0 Patient is declining surgery. He states he would consider chemotherapy; unfortunately he is likely not a candidate. Palliative care met with the patient to discuss palliative surgery versus comfort focused care. Patient is appropriately tearful but states he doesn't think he wants "to do any of that stuff." Patient Community DNR completed. Patient designated his friend, Garrison Mendoza, is the healthcare surrogate decision maker. The patient's mother, Sierra Dooley, is designated as the alternate health care surrogate decision maker. Hospice was consulted; spoke with Karena at hospice intake. Discussed with Dr. Kwesi CMA (Mya) and bedside nurse (Amber). . Advance Directives Advance Directive Specifics Date completed: 02/10/2017 . Health Care Surrogate(s): Patient designated his friend, Garrison Mendoza, is the healthcare surrogate decision maker. The patient's mother, Sierra Dooley, is designated as the alternate health care surrogate decision maker. . Significant change in goals: Hospice consult pending . Objective Vital Signs Date Time Temp Pulse Resp B/P (MAP) Pulse Ox O2 Delivery O2 Flow Rate FiO2 02/10/17 11:50 96.4 69 20 128/71 (90) 97 02/10/17 07:50 96.2 65 20 126/68 (87) 96 02/10/17 05:01 98.2 76 18 128/73 (91) 96 02/10/17 00:46 98.2 76 18 128/73 (91) 96 02/09/17 20:46 97.3 79 18 139/85 (103) 97 . Physical Exam CONSTITUTIONAL/GENERAL: This is an adequately nourished patient, in no apparent distress. TUBES/LINES/DRAINS: PIV 1 SKIN: No jaundice, rashes, or lesions. No wounds seen anteriorly. Skin temperature appropriate. Not diaphoretic. HEAD: Atraumatic. Normocephalic. EYES: Pupils equal and round and reactive. Extraocular motions intact. No scleral icterus. No injection or drainage. Fundi not examined. ENT: Hearing grossly normal. Nose without bleeding or purulent drainage. Mucous membranes moist and pink NECK: Trachea midline. CARDIOVASCULAR: Regular rate and rhythm without murmurs, gallops, or rubs. RESPIRATORY/CHEST: Symmetric, unlabored respirations. No accessory muscle use. Clear to auscultation. Breath sounds equal bilaterally. GASTROINTESTINAL: Abdomen soft, non-tender, nondistended. No guarding. Bowel sounds present. GENITOURINARY: Without palpable bladder distension. MUSCULOSKELETAL: Extremities without clubbing, cyanosis. No mottling or clubbing. LYMPHATICS: No palpable cervical or supraclavicular adenopathy. NEUROLOGICAL: Awake and alert. Motor and sensory grossly within normal limits. Follows commands. Cognitively sharp. Moves all extremities. PSYCHIATRIC: No obvious anxiety/depression. no apparent hallucinations or other psychotic thought process. . Diagnostic Tests Laboratory Laboratory Tests Test 02/09/17 06:31 02/09/17 17:29 02/09/17 18:05 02/10/17 06:55 White Blood Count 5.2 TH/MM3 (4.0-11.0) 5.7 TH/MM3 (4.0-11.0) Red Blood Count 3.71 MIL/MM3 (4.50-5.90) 3.74 MIL/MM3 (4.50-5.90) Hemoglobin 11.5 GM/DL (13.0-17.0) 11.6 GM/DL (13.0-17.0) Hematocrit 34.9 % (39.0-51.0) 35.1 % (39.0-51.0) Mean Corpuscular Volume 94.2 FL (80.0-100.0) 93.9 FL (80.0-100.0) Mean Corpuscular Hemoglobin 31.1 PG (27.0-34.0) 31.1 PG (27.0-34.0) Mean Corpuscular Hemoglobin Concent 33.0 % (32.0-36.0) 33.1 % (32.0-36.0) Red Cell Distribution Width 15.1 % (11.6-17.2) 15.1 % (11.6-17.2) Platelet Count 245 TH/MM3 (150-450) 273 TH/MM3 (150-450) Mean Platelet Volume 6.7 FL (7.0-11.0) 6.8 FL (7.0-11.0) Neutrophils (%) (Auto) 60.5 % (16.0-70.0) Lymphocytes (%) (Auto) 24.6 % (9.0-44.0) Monocytes (%) (Auto) 8.7 % (0.0-8.0) Eosinophils (%) (Auto) 5.5 % (0.0-4.0) Basophils (%) (Auto) 0.7 % (0.0-2.0) Neutrophils # (Auto) 3.2 TH/MM3 (1.8-7.7) Lymphocytes # (Auto) 1.3 TH/MM3 (1.0-4.8) Monocytes # (Auto) 0.5 TH/MM3 (0-0.9) Eosinophils # (Auto) 0.3 TH/MM3 (0-0.4) Basophils # (Auto) 0.0 TH/MM3 (0-0.2) CBC Comment DIFF FINAL Differential Comment Blood Urea Nitrogen 5 MG/DL (7-18) 6 MG/DL (7-18) Creatinine 0.61 MG/DL (0.60-1.30) 0.75 MG/DL (0.60-1.30) Random Glucose 82 MG/DL (74-106) 85 MG/DL (74-106) Calcium Level 8.4 MG/DL (8.5-10.1) 8.7 MG/DL (8.5-10.1) Sodium Level 131 MEQ/L (136-145) 135 MEQ/L (136-145) Potassium Level 3.9 MEQ/L (3.5-5.1) 4.3 MEQ/L (3.5-5.1) Chloride Level 100 MEQ/L (98-107) 103 MEQ/L (98-107) Carbon Dioxide Level 22.9 MEQ/L (21.0-32.0) 25.5 MEQ/L (21.0-32.0) Anion Gap 8 MEQ/L (5-15) 7 MEQ/L (5-15) Estimat Glomerular Filtration Rate 135 ML/MIN (>89) 106 ML/MIN (>89) Serum Osmolality 276 MOSM/KG (275-295) Urine Osmolality 276 MOSM/KG (300-1300) Prothrombin Time 10.6 SEC (9.8-11.6) Prothromb Time International Ratio 1.0 RATIO Phosphorus Level 3.7 MG/DL (2.5-4.9) Magnesium Level 1.9 MG/DL (1.5-2.5) . Result Diagram: 02/10/1755 02/10/1755 Procedures 02/07/2017: EGD and colonoscopy . Assessment and Plan Disease Oriented Problem List: (1) DVT (deep venous thrombosis) (2) History of bipolar disorder (3) History of traumatic brain injury (4) Normocytic anemia (5) Esophageal mass (6) Colonic mass (7) Post-traumatic seizures Symptom Scale: (1) Pain (2) Anxiety (3) Weakness Pertinent Non-Medical Issues Psychosocial:Per note review, the patient has lived in the area for 30+ years. The patient is single; he has no children. He has a high school education. The patient's mother lives in [place]; he has 4 brothers. He states it's a dump and he doesn't like it there. The patient denies any history. 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 The patient is disabled; he has resided at [facility] for approximately one year. Spiritual: Pending further conversation with patient Legal: Per [place] statutes, in the absence of written advanced directives healthcare proxy decision-making falls to this patient's mother. Ethical issues impacting care: No known ethical issues impacting care at this time. Important Contacts Ana Dooley, mother: [phone]? Mohsen Mendoza, friend: [phone] or [phone] of the abdomen/pelvis revealed a confluence of hepatic mass in the left lobe suspicious for metastatic disease in the liver with upper abdominal adenopathy which is concerning for metastatic disease. Although the biopsies were not consistent with cancer with an elevated CEA and the EGD/CT results, patient is likely terminal. Palliative surgery was offered by Dr. Curran to address symptoms related to tumor burden. Oncology has been consulted. . Code Status: No Code Plan * NO CODE * Per [place] statutes, in the absence of written advanced directives healthcare proxy decision-making falls to this patient's mother. * Patient is declining surgery. He states he would consider chemotherapy; unfortunately he is likely not a candidate. Palliative care met with the patient to discuss palliative surgery versus comfort focused care. Patient is appropriately tearful but states he doesn't think he wants "to do any of that stuff." * Patient Community DNR completed. * Patient designated his friend, Garrison Mendoza, is the healthcare surrogate decision maker. The patient's mother, Sierra Dooley, is designated as the alternate health care surrogate decision maker. * [employer]urant's pending. Patient would like his mother's contact information if possible. * Hospice was consulted; spoke with Karena at hospice intake. Discussed with Dr. Orosco, APPLICATIONS PROJECT MANAGER (Mya) and bedside nurse (Amber). * Symptom management-pain: Patient currently denying pain, however he will likely have pain at some point secondary to tumor burden. Recommendations to have PRN medication in place prior to discharge; Roxanol (20 mg/mL) 5-10mg PO/SL q4 hours PRN pain. * Palliative care will continue to follow this patient to establish trust, assist with symptom management and clarification of medical treatment goals. . Attestation To help prompt me to consider important information that might be impacting today's encounter and assessment, information from prior notes written by myself or my colleagues may have been "brought forward" into today's note. My signature on this note, however, is an attestation that I personally performed the exam, history, and/or decision-making noted today, and, unless otherwise indicated, the interactions with patient, family, and staff as well as the review of records all occurred today. I also attest that the listed assessment and stated plan reflect my best clinical judgment today based on the combination of historical information, prior notes, and today's exam/ interactions. When time spent is documented, it refers only to time spent today by the signer, or if indicated, combined time spent today by collaborating physician/nurse practitioner. . Neeta Fermin Feb 10, 2017 5:20 pm
[2017-02-10 20:00] VITALS: BP 113/63; PULSE 82; RESP 19; TEMP 97.9; O2SAT 94
[2017-02-10] MEDS: ENOXAPARIN SODIUM 40 MG/0.4 ML SYRINGE SQ SCH (23:08)
[2017-02-11] MEDS: PANTOPRAZOLE SOD 40 MG DELAYED RELEASE TAB PO SCH (09:41)
[2017-02-11] MEDS: OXcarbazepine 300 MG TAB PO SCH (09:41)
[2017-02-11] MEDS: DOCUSATE SODIUM 50 MG/SENNA 8.6 MG TAB PO SCH (09:41)
[2017-02-11] MEDS: lamoTRIgine 25 MG TAB PO SCH (09:41)
[2017-02-11] MEDS: PRAVASTATIN SOD 40 MG TAB PO SCH (09:41)
[2017-02-11] MEDS: SODIUM CHLORIDE 0.9% FLUSH 10 ML FLUSH IV FLUSH SCH (09:42)
[2017-02-11] MEDS: OLANZapine ODT 10 MG TAB PO SCH ×2 (09:48→12:50)
[2017-02-11] MEDS ORDERED: HYDR-3580 PO (10:30)
--- NOTE | 2017-02-11 10:38 | HHI.DS ---
Discharge Summary Admission Date Feb 08, 2017 at 17:38 Discharge Date: Feb 11, 2017 Admitting Diagnosis (1) Metastatic carcinoma ICD Code: C79.9 - Secondary malignant neoplasm of unspecified site Diagnosis: Principal Status: Acute (2) Esophageal mass ICD Code: K22.9 - Disease of esophagus, unspecified Diagnosis: Principal Status: Acute (3) Colonic mass ICD Code: K63.9 - Disease of intestine, unspecified Diagnosis: Principal Status: Acute (4) Bipolar disorder ICD Code: F31.9 - Bipolar disorder, unspecified Diagnosis: Secondary Status: Chronic (5) Post-traumatic seizures ICD Code: R56.1 - Post traumatic seizures Diagnosis: Secondary Status: Resolved (6) Normocytic anemia ICD Code: D64.9 - Anemia, unspecified Diagnosis: Secondary Status: Chronic Procedures none Brief History - From Admission Mr. Dooley is a pleasant 61 year old male with a history of bipolar disorder, seizure disorder, right leg DVT who was discharged from psychiatry service to medical floor today for further work up with regards to recently found esophageal and colonic mass. Patient was initially admitted to psychiatric service on 01/03/2017 for psychiatric decompensation including refusal to take medications. Most recent hospitalist consult was placed due to patient's anemia. His hemoglobin dropped from 13.2 --> 12.2 --> 11.2 --> 10.8. Patient has been on Xarelto due to history of right leg DVT. Due to anemia, we obtained iron studies which indicated iron deficiency anemia. GI came on board and performed EGD, Colonoscopy on 02/07/2017. Endoscopic studies unfortunately indicated possibility of esophageal and colonic mass. Patient was subsequently evaluated by medical oncology who obtained CT chest, abdomen/pelvis. Chest CT shows metastatic disease including to the liver. CT abd/pelvis shows metastatic process and colonic mass as well. General surgery evaluated patient and recommended palliative surgery. At the time of this interview, patient denies any chest pain, shortness of breath, fever, chills. He reports dark loose stool but no gross blood in stool. CBC/BMP: 02/10/17 0655 02/10/17 0655 Significant Findings Teaching class V pathology report showed gastritis of gastric biopsy, a transverse colon polyp revealed tubular adenoma, cecum biopsy showed villous adenoma Laboratory Tests Test 02/09/17 06:31 02/09/17 17:29 02/09/17 18:05 02/10/17 06:55 Red Blood Count 3.71 MIL/MM3 (4.50-5.90) 3.74 MIL/MM3 (4.50-5.90) Hemoglobin 11.5 GM/DL (13.0-17.0) 11.6 GM/DL (13.0-17.0) Hematocrit 34.9 % (39.0-51.0) 35.1 % (39.0-51.0) Mean Platelet Volume 6.7 FL (7.0-11.0) 6.8 FL (7.0-11.0) Monocytes (%) (Auto) 8.7 % (0.0-8.0) Eosinophils (%) (Auto) 5.5 % (0.0-4.0) Blood Urea Nitrogen 5 MG/DL (7-18) 6 MG/DL (7-18) Calcium Level 8.4 MG/DL (8.5-10.1) Sodium Level 131 MEQ/L (136-145) 135 MEQ/L (136-145) Urine Osmolality 276 MOSM/KG (300-1300) Imaging CT abdomen pelvis 1. Confluent hepatic masses in the left lobe suspect for metastatic disease to the liver with upper abdominal adenopathy and this is concerning for metastatic disease until proven otherwise. 2. There is a colocolonic intussusception at the proximal transverse colon extending over 9.5 cm, felt to most likely be secondary to a colonic mass of the mid transverse colon which is not well evaluated on this study but suspected on axial image 48. Regional lymphadenopathy in the pericolonic fat is concerning for metastatic disease. 3. Occlusion of the right common, external and internal iliac arteries PE at Discharge GENERAL: This is a well-nourished, well-developed patient, in no apparent distress. CARDIOVASCULAR: Regular rate and rhythm RESPIRATORY: Clear to auscultation. Breath sounds equal bilaterally. No wheezes , rales, or rhonchi. GASTROINTESTINAL: Abdomen soft, non-tender, nondistended. Normal active bowel sounds MUSCULOSKELETAL: Extremities without clubbing, cyanosis, or edema. NEURO: Alert & Oriented x4 to person, place, time, situation. Moves all ext x4 Pt update on day of discharge Patient decided to return back to [facility] with hospice and declined further workup or consideration of palliative surgery or other invasive intervention. Hospital Course These are the medical issues addressed during this hospitalization: Mr. Dooley is a pleasant 61 year old male with a history of bipolar disorder, likely post-traumatic seizure disorder who underwent EGD/Colonoscopy and found to have esophageal, colonic mass. Patient was under the care of psychiatry service when he was being worked up for iron deficiency anemia. Imaging studies indicated very likely widely metastatic malignancy. Oncology and general surgery has evaluated patient entrance was made to the inpatient medical service.. With those findings Probable metastatic malignancy although unable to get definitive tissue. - Esophageal mass - Colonic mass - CEA is 427.4 (Normal range 0.2 - 5.0). - CT chest and CT abdomen, pelvis images reviewed by me on 02/09/2017 - shows diffuse metastasis. -Patient is declining any palliative surgery. - He is open to comfort measures. Palliative care services also following. He is open to receiving information on hospice. He declines any invasive procedures. At this time will cancel the CT-guided liver biopsy for further workup due to patient's wishes for hospice.. - Right lower ext DVT - Patient has an IVC filter and has been on Warfarin then Xarelto. - Full anticoagulation is currently on hold due to GI bleed, iron deficiency anemia. - Discussed with hematology/oncology. Will hold off full anticoagulation for now. - Will continue Lovenox 40mg Qday (DVT Prophylaxis dose). At this time due to recent GI bleed and hospital service to not restart anticoagulation and continue comfort measures. - Iron deficiency anemia - likely due to malignancy related GI bleed. - Will continue Protonix 40mg BID. Francis and had remained stable during hospitalization. - Post-traumatic seizure disorder - Patient had significant dysphoric reaction to Keppra - Avoid Keppra use. - Continue Trileptal 600mg BID and Lamictal 50mg BID. - Bipolar disorder - Discontinue Olazapine 10mg TID upon transition to hospice. - Hyponatremia, likely due to SIADH- fluid restricted and sodium improving Lovenox DVT Prophylaxis dose given hospitalization. Pt Condition on Discharge: Fair Discharge Disposition: Hospice/Med Facility Discharge Time: <= 30 minutes Discharge Instructions DIET: Follow Instructions for: As Tolerated, No Restrictions Activities you can perform: Regular-No Restrictions Follow up Referrals: Appointment for Follow Up with hospice New Medications: Hydrocodone-Acetaminophen (Hydrocodone-Acetaminophen) 7.5-325 mg Tab 1 TAB PO Q4HR PRN for PAIN SCALE 5 TO 10, #30 TAB Continued Medications: Lamotrigine (Lamictal) 25 Mg Tab 50 MG PO BID for Seizure for 30 Days, #120 TAB 0 Refills Oxcarbazepine (Oxcarbazepine) 300 Mg Tab 600 MG PO BID for Seizure for 30 Days, #120 TAB 0 Refills Pantoprazole (Pantoprazole) 40 Mg Tab 40 MG PO Q12HR for GERD for 30 Days, TAB 0 Refills Discontinued Medications: Alendronate (Fosamax) 70 Mg Tab 70 MG PO Q7D for Osteoporosis Treatment, #4 TAB 0 Refills Olanzapine Odt (Zyprexa Zydis) 10 Mg Tab 10 MG PO DAILY@0900,1300,2100 for Mental Health for 30 Days, TAB 0 Refills Simvastatin (Simvastatin) 20 Mg Tab 20 MG PO DAILY for Cholesterol Management, #30 TAB 0 Refills Alice Orosco MD Feb 11, 2017 10:38
[2017-02-11 12:00] VITALS: BP 99/57; PULSE 90; RESP 16; TEMP 98.1; O2SAT 94
--- NOTE | 2017-02-11 13:29 | PD.ONC.PN ---
Subjective Subjective Remarks Afebrile overnight. Patient resting in bed in [facility]. No complaints. Just about to order lunch. Denies pain. States he has decided to enroll in hospice. Objective Data Date Time Temp Pulse Resp B/P (MAP) Pulse Ox O2 Delivery O2 Flow Rate FiO2 02/10/17 20:00 97.9 82 19 113/63 (80) 94 02/10/17 15:50 69 20 95/45 (62) 96 02/11/17 02/11/17 02/11/17 07:00 15:00 23:00 Output Total 0 ml Balance 0 ml Result Diagram: 02/10/17 0655 02/10/1755 Administered Medications Medications (Trade) Dose Ordered Sig/Thaddeus Route PRN Reason Start Time Stop Time Status Last Admin Dose Admin Sodium Chloride (NS Flush) 2 ml BID IV FLUSH 02/08/17 21:00 02/11/17 09:42 Enoxaparin Sodium (Lovenox Inj) 40 mg Q24H SQ 02/08/17 20:00 02/10/17 23:08 Senna/Docusate Sodium ([place]-Colace) 1 tab BID PO 02/08/17 21:00 02/11/17 09:41 Lamotrigine (LaMICtal) 50 mg BID PO 02/08/17 21:00 02/11/17 09:41 Olanzapine (ZyPREXA ZYDIS ODT) 10 mg DAILY@0900,1300,2100 PO 02/08/17 21:00 02/11/17 12:50 Oxcarbazepine (Trileptal) 600 mg BID PO 02/08/17 21:00 02/11/17 09:41 Pantoprazole Sodium (Protonix) 40 mg Q12HR PO 02/08/17 21:00 02/11/17 09:41 Pravastatin Sodium (Pravachol) 40 mg DAILY PO 02/09/17 09:00 02/11/17 09:41 Objective Remarks GENERAL: Middle aged male upright in bed in [facility]. SKIN: Warm and dry. HEAD: Normocephalic. EYES: No injection or drainage. NECK: Supple, trachea midline. CARDIOVASCULAR: Regular rate and rhythm RESPIRATORY: Breath sounds equal bilaterally. No accessory muscle use. GASTROINTESTINAL: Abdomen soft, non-tender, nondistended. EXTREMITIES: No cyanosis NEUROLOGICAL: awake and alert. normal speech. Assessment/Plan Problem List: (1) Colonic mass ICD Codes: K63.9 - Disease of intestine, unspecified Status: Acute Plan: 02/11/17: patient has chosen hospice. he is awaiting transport to facility. denies pain. no further questions. -- CEA elevated at 427 -- Pt with extensive mets to liver -- The patient underwent upper endoscopy which showed esophageal mass. Multiple biopsies were obtained however were nonconclusive. Assessment 61 y/o male brought in as a barger act and found to have a colonic mass with elevated CEA Charline Riddle Feb 11, 2017 13:29
== END 2017-02-11 15:09 | disposition hospice, inpatient (51) | DRG 436 ==
LOC: HOCB 17:38
PROVIDERS: ADMIT Family Medicine; ATTEND Family Medicine
DX: C78.7 Secondary malignant neoplasm of liver and intrahepatic bile duct (principal); I82.411 Acute embolism and thrombosis of right femoral vein; J90 Pleural effusion, not elsewhere classified; K56.1 Intussusception; E22.2 Syndrome of inappropriate secretion of antidiuretic hormone; R56.1 Post traumatic seizures; D50.9 Iron deficiency anemia, unspecified; F17.210 Nicotine dependence, cigarettes, uncomplicated; J43.9 Emphysema, unspecified; E78.5 Hyperlipidemia, unspecified; F31.9 Bipolar disorder, unspecified; Z87.820 Personal history of traumatic brain injury; F12.90 Cannabis use, unspecified, uncomplicated; R59.0 Localized enlarged lymph nodes; K22.9 Disease of esophagus, unspecified; C80.1 Malignant (primary) neoplasm, unspecified; F41.9 Anxiety disorder, unspecified; Z51.5 Encounter for palliative care; Z66 Do not resuscitate; Z79.82 Long term (current) use of aspirin
CPT/HCPCS: 80048; 83735; 83930; 83935; 84100; 85025; 85027; 85610; J1650